=== PATIENT | female | born 1945 | race Caucasian/White ===

== ENCOUNTER 2019-10-21 13:42 | Emergency (ER) | payer MEDICARE, BC, SELFPAY ==
[2019-10-21 14:11] VITALS: BP 131/59; PULSE 64; RESP 20; TEMP 36.7; O2SAT 99; BMI 27.4
--- NOTE | 2019-10-21 14:37 | CA_ITS ---
APPROVED REPORT Right Lower Extremity Venous Study for DVT. Barrel Lapper: CHRISTI Indications Lower Extremity Pain: Right LEG PAIN Vein Imaging CFV (R): compressive, spontaneous, phasic, augmentation FEM (R): compressive, spontaneous, phasic, augmentation POP (R): compressive, spontaneous, phasic, augmentation PTV (R): Compressible, Compressible GSV (R): Compressible SSV (R): Compressible Peroneals (R):Compressible GAS (R): Compressible Findings No evidence of DVT or superficial thrombophlebitis in the veins scanned of the right lower extremity. Conclusion No evidence of DVT or superficial thrombophlebitis in the veins scanned of the right lower extremity. Electronically signed by : Srinivasan Martinez MD 10/21/2019 16:52:29
--- NOTE | 2019-10-21 14:38 | HMH.EDUTC ---
[facility] [place] Clinical Impression: Sciatic leg pain Disposition: Home, Self-Care Condition on Discharge: Good Instructions: Sciatica, DI for Sciatica Additional Instructions: Over the counter Lidocaine patches may help with pain and discomfort Over the counter muscle rubs may help with pain Follow up with Family doctor if no improvement or any worsening of symptoms Return if needed Straight to ER If any life threatening symptoms Referrals: Amilcar Guzman [Primary Care Provider] - As needed Time of Disposition: 15:33 Medical Decision Making - Deon Inquiry Pt receiving controlled substance: No Deon was queried for this patient: No Vital Signs: 10/21/19 14:11 10/21/19 15:50 Temperature 98.0 F 98.0 F Temperature Source Oral Pulse Rate 64 Pulse Rate [Right Brachial] 64 Respiratory Rate 20 20 Blood Pressure 131/59 L Blood Pressure [Right Arm] 131/59 L Blood Pressure Mean [Right Arm] 83 Blood Pressure Source [Right Arm] Automatic Cuff Blood Pressure Position [Right Arm] Sitting 02 Sat by Pulse Oximetry 99 Oxygen Delivery Method Room Air Orders (Tests/Meds): ED MEDICATIONS Discontinued Medications Generic Name Dose Route Start Last Admin Trade Name Fredi PRN Reason Stop Dose Admin Methylprednisolone Sodium Succinate 125 mg 10/21/19 15:22 10/21/19 15:42 Solu-Medrol 125mg/2ml Vial IM 10/21/19 15:23 Not Given ONCE ONE - US Data US Images: Lower Extremity Preliminary Findings: Normal/NAD Findings Narrative: Discussed with tech, no DVT Medical Decision Narrative: Discussed sciatica and recommended injection of solu medrol and patient refused States she did not want to take it and she would follow up with her family doctor tomorrow and see if he wanted her to take a steriod shot and then she would that today she was more worried about a blood clot so she came in. [facility] [place] - General Stated complaint: rt leg pain Time Seen by Provider: 10/21/19 14:38 Mode of Arrival: Ambulatory Source of Information: Patient Limitations: No Limitations Description of Symptoms (Recalled from Triage Doc. by RN): PATIENT C/O RIGHT LEG PAIN FROM HIP TO ANKLE X 2 WEEKS. NO KNOWN INJURY HEENT Symptoms (Recalled from RN notes): No Resp Symptoms (Recalled from RN notes): No Skin Symptoms (Recalled from RN notes): No MS Symptoms (Recalled from RN notes): Yes Functional Status (Recalled from RN notes): WNL - History of Present Illness Provider Complaint: Patient states that she has been having pain in her right hip area that radiates down her right leg with pain worse in her lower leg/calf area States that she has also been having some busted blood veins in her leg State that pain is worse when she tries to walk and denies any injury - Related Data Home Medications Medication Instructions Recorded Confirmed Aspirin [Aspir-Low] 81 mg PO DAILY 04/16/18 10/21/19 Clopidogrel Bisulfate [Plavix 75mg 75 mg PO DAILY 04/16/18 10/21/19 Tab] Hydralazine HCl [Hydralazine HCl 12.5 mg PO BID 04/16/18 10/21/19 25mg Tablet] Metoprolol Tartrate 50 mg PO DAILY 04/16/18 10/21/19 Moexipril HCl 15 mg PO BID 04/16/18 10/21/19 hydroCHLOROthiazide [HCTZ 12.5mg 12.5 mg PO BID 04/16/18 10/21/19 capsule] acetaminophen 300 mg-codeine 60 mg tab PO 09/30/19 10/21/19 tablet amlodipine 5 mg tablet PO 09/30/19 10/21/19 atorvastatin 80 mg tablet PO 09/30/19 10/21/19 clonidine HCl 0.1 mg tablet PO 09/30/19 10/21/19 isosorbide mononitrate 30 mg mg PO 09/30/19 10/21/19 tablet,extended release 24 hr amoxicillin 875 mg-potassium tab PO 10/21/19 10/21/19 clavulanate 125 mg tablet Previous Rx's Medication Instructions Recorded azithromycin 250 mg tablet See Rx Instructions PO .COMPLEX #6 09/24/19 tab ciprofloxacin 0.3 %-dexamethasone 3 drp OTIC BID 14 Days #7.5 ml 09/30/19 0.1 % ear drops,suspension Allergies Allergy/AdvReac Type Severity Reaction Status Date / Time morphine Ja
[2019-10-21 15:50] VITALS: BP 131/59; PULSE 64; RESP 20; TEMP 36.7; O2SAT 99
== END 2019-10-21 15:51 | disposition home or self-care (01) ==
PROVIDERS: Emergency Provider Nurse Practitioner; PCP Pediatrics
DX: M54.31 Sciatica, right side (principal); M79.604 Pain in right leg; I10 Essential (primary) hypertension; E11.9 Type 2 diabetes mellitus without complications; E78.5 Hyperlipidemia, unspecified; I25.10 Atherosclerotic heart disease of native coronary artery without angina pectoris; Z88.5 Allergy status to narcotic agent; Z79.899 Other long term (current) drug therapy
CPT/HCPCS: 93971; 99201

== ENCOUNTER 2020-01-15 17:30 | Inpatient (IN) | payer MEDICARE, BC, SELFPAY ==
[2020-01-15 17:30] VITALS: BP 115/51; PULSE 81; RESP 20; TEMP 37.3; O2SAT 90; BMI 31.8
--- NOTE | 2020-01-15 17:40 | XR_ITS ---
PROCEDURE: XR CHEST PORTABLE CLINICAL HISTORY: cough COMPARISON: CR CXR CHEST(2 VIEWS-NOT PORTABLE) from 11/08/2013 CR CXR2V XR chest 2V from 07/29/2017 CR CXR2V XR chest 2V from 04/16/2018 FINDINGS: Mild cardiomegaly failure. Mild atelectatic changes in the left lower lobe. Minimally offset left 7th rib fracture posteriorly age indeterminate. Old right 6th rib fracture. IMPRESSION: Mild left basilar atelectasis with age indeterminate left 7th rib fracture an old right 6th rib fracture Dictated by: Srinivasan Martinez MD 01/16/2020 06:05 Srinivasan Martinez MD in [place] 01/16/2020 06:05
--- NOTE | 2020-01-15 17:40 | CT_ITS ---
PROCEDURE: CT HEAD/BRAIN WO CON CLINICAL INDICATION: fall, head injury The Head injury with headache/pain, contusion, abrasion or hematoma COMPARISON: CT HDWO CT HEAD W/O CONTRAST from 11/01/2013 TECHNIQUE: Axial images obtained. All CT scans at the facility use one or more dose reduction, viz: automated exposure control, ma/kV adjustment per patient size (including targeted exams where dose is matched to indication, i.e. head), or iterative reconstruction technique. FINDINGS: No midline shift, mass effect, intracranial hemorrhage, hydrocephalus, or extra-axial fluid collection is evident. There is generalized atrophy with hypoattenuation of the periventricular white matter consistent with microangiopathic changes. There is thinning the calvarium with a defect in the calvarium in the left lateral occipital bone posterior to the mastoid sinus which is not significantly changed. Bilateral mastoid opacification is noted. No sinus air-fluid level. IMPRESSION: Overall no change with no acute intracranial findings. There is suspected chronic bilateral maxillary sinus inflammatory changes. Dictated by: Srinivasan Martinez MD 01/16/2020 06:49 Srinivasan Martinez MD in [place] 01/16/2020 06:49
--- NOTE | 2020-01-15 17:41 | CT_ITS ---
PROCEDURE: CT CERVICAL SPINE WO CON CLINICAL INDICATION: fall, neck pain Neck injury with pain, contusion/abrasion or hematoma, cervical sprain/strain the COMPARISON: No exams were available for comparison TECHNIQUE: Axial images obtained with sagittal and coronal reformats. All CT scans at the facility use one or more dose reduction, viz: automated exposure control, ma/kV adjustment per patient size (including targeted exams where dose is matched to indication, i.e. head), or iterative reconstruction technique. Axial spiral CT scanning performed of the cervical spine beginning at the base of the skull and continuing to the upper T-spine. 3-D multiplanar reconstruction with 3-D manipulation of volumetric data set in image rendering was completed by the radiologist and/or technologist with the supervision of the radiologist on independent workstation. FINDINGS: There is normal alignment. No acute fracture or dislocation is evident. There is mild multilevel cervical spondylosis. The C2-C3: Facet hypertrophy on the left. C3-C4: Degenerative disc disease with 3 mm anterolisthesis of C3. C4-C5: Degenerative disc disease with 3 mm anterolisthesis of C4 and right-sided facet and uncovertebral hypertrophy with right lateral recess and foraminal narrowing. C5-C6: Degenerative disc disease. C6-C7: Degenerate disc disease. Patchy density left upper lobe posteriorly may be due to subpleural atelectasis or infiltrate. IMPRESSION: No acute fracture. Cervical spondylosis Dictated by: Srinivasan Martinez MD 01/16/2020 06:46 Srinivasan Martinez MD in [place] 01/16/2020 06:46
--- NOTE | 2020-01-15 17:50 | PC.NURSE ---
Pt taken for CT and Xray
[2020-01-15 17:51] LABS: Microscopic, Urine URINE MICROSCOPIC (MICROSCOPIC)
[2020-01-15 17:55] LABS: Basophils % 0.3 % (0.1-2.0); Hematocrit 38.5 % (37.0-47.0); Hemoglobin 13.3 g/dL (12.2-16.2); Lymphocytes # 0.7 K/mm3 (0.7-4.5); Lymphocytes % 12.3 % (10-50); Mean Corpuscular HGB Conc 34.6 g/dL (31.8-35.4); Mean Corpuscular Volume 89.6 fl (81-99); Mean Platelet Volume 8.8 fl (7.4-10.4); Monocytes # 0.5 K/mm3 (0.1-1.0); Monocytes % 8.5 % (1.7-9.3); Neutrophils # 4.8 K/mm3 (1.8-7.8); Neutrophils % 78.9 % (37.0-80.0); Platelet Count 203 K/mm3 (142-424); Red Cell Distribution Width 13.7 % (11.5-17.5)
[2020-01-15 18:17] LABS: Appearance,Urine CLEAR (Clear); Blood, Urine Negative (Negative); Color,Urine DK YELLOW (Yellow); Glucose,Urine (UA) Negative (Negative); Ketones,Urine Negative (Negative); Leukocyte Esterase,Urine Negative (Negative); Nitrate,Urine Negative (Negative); Protein,Urine TRACE (Negative); Specific Gravity, Urine >= 1.030 (1.005-1.030); Urobilinogen,Urine 0.2 EU/dl (0.2)
--- NOTE | 2020-01-15 18:23 | HMH.EDGENADL ---
ED Disposition Clinical Impression: Dehydration Renal failure Qualifiers: Renal failure chronicity: acute Acute renal failure type: unspecified Qualified Code(s): N17.9 - Acute kidney failure, unspecified Diarrhea Qualifiers: Diarrhea type: unspecified type Qualified Code(s): R19.7 - Diarrhea, unspecified Fall Qualifiers: Encounter type: initial encounter Qualified Code(s): W19.XXXA - Unspecified fall, initial encounter Disposition: Admitted As Inpatient Condition on Discharge: Good Time of Disposition: 20:31 - Critical Care Critical Care Time: No Attestation: On 01/15/20, the high probability of a clinically significant, sudden or life threatening deterioration of the following system(s) required my full and direct attention, intervention and personal management. The time I documented below is in addition to time spent performing reported procedures but includes the following listed in this critical care notation. Medical Decision Making - Medical Records Medical records reviewed: Yes: I reviewed the patient's medical records. - Deon Inquiry Pt receiving controlled substance: No Vital Signs: 01/15/20 17:30 01/15/20 19:30 Temperature 99.1 F Temperature Source Oral Pulse Rate [Radial] 81 76 Respiratory Rate 20 16 Blood Pressure [Right Arm] 115/51 L 131/55 L Blood Pressure Mean [Right Arm] 72 80 Blood Pressure Source [Right Arm] Automatic Cuff Blood Pressure Position [Right Arm] Sitting Sitting 02 Sat by Pulse Oximetry 90 L 92 L Oxygen Delivery Method Room Air Room Air - Lab Data Lab Results 01/15/20 17:40: WBC 6.0, RBC 4.30, Hgb 13.3, Hct 38.5, MCV 89.6, MCH 31.0, MCHC 34.6, RDW 13.7, Plt Count 203, MPV 8.8, Neut % (Auto) 78.9, Lymph % (Auto) 12.3, [place] % (Auto) 8.5, Eos % (Auto) 0.0 L, Baso % (Auto) 0.3, Neut # (Auto) 4.8, Lymph # (Auto) 0.7, [place] # (Auto) 0.5, Eos # (Auto) 0.0, Baso # (Auto) 0.0 01/15/20 17:40: Urine Color Dk yellow, Urine Appearance Clear, Urine pH 5.0, Ur Specific [place] >= 1.030, Urine Protein Trace, Urine Glucose (UA) Negative, Urine Ketones Negative, Urine Blood Negative, Urine Nitrate Negative, Urine Bilirubin Negative, Urine Urobilinogen 0.2, Ur Leukocyte Esterase Negative, Urine WBC 5-10, Ur Squamous Epith Cells 10-20 01/15/20 17:40: Sodium 129 L, Potassium 4.7, Chloride 92 L, Carbon Dioxide 18 L, Anion Gap 23.7 H, BUN 70 H, Creatinine 3.50 H, Estimated Creat Clear 18, Estimated GFR 13 L*, Est GFR ( Amer) 15 L*, Glucose 104 H, Calcium 9.0, Total Bilirubin 0.6, AST 76 H, ALT 29, Alkaline Phosphatase 65, Troponin I 0.07 H, Total Protein 7.7, Albumin 4.4, Globulin 3.3 H, Albumin/Globulin Ratio 1.3, Lipase 450 H 01/15/20 17:40: SARS-CoV-2 IgG Ab (Rapid) Negative, SARS-CoV-2 IgM Ab (Rapid) Negative 01/15/20 17:40: Total Creatine Kinase 659 H* Result diagrams: 01/15/20 17:40 01/15/20 17:40 Orders (Tests/Meds): ED MEDICATIONS Generic Name Dose Route Start Last Admin Trade Name Freq PRN Reason Stop Dose Admin Sodium Chloride 1,000 mls @ 999 mls/hr 01/15/20 19:15 01/15/20 20:06 Sod Chlor 0.9% 1000ml Bag IV 01/15/20 20:15 999 mls/hr .Q1H1M NICOLE Administration Sodium Chloride 1,000 mls @ 999 mls/hr 01/15/20 20:15 01/15/20 20:07 Sod Chlor 0.9% 1000ml Bag IV 01/15/20 21:15 999 mls/hr .Q1H1M NICOLE Administration ORDERS Category Date Time Status CT cervical spine wo con Stat Cat Scan 01/15/20 17:[address] head/brain wo con Stat Cat Scan 01/15/20 17:40 Taken CXR --portable [XR chest portable] Stat Exams 01/15/20 17:40 Taken Troponin I Q3H Lab 01/15/20 20:45 Ordered Troponin I Q3H Lab 01/15/20 23:45 Ordered EKG Request [ECG Request by /Tiffany] Stat Y 01/15/20 17:42 Ordered Medical Decision Narrative: In summary this is a previously healthy 74-year-old female presenting to the emergency department with headache and neck pain after a fall. Says she feels generally unwell, malaise. Trauma concerns include intracranial bleed, con
[2020-01-15 18:26] LABS: Bilirubin,Urine Negative (Negative)
--- NOTE | 2020-01-15 19:00 | ECG_ITS ---
APPROVED REPORT Exam: Resting ECG HR:75 bpm ECG Measurements Heart Rate 75 AXES QRSd 74 QRS -16 QT 398 T 8 QTc 444 Conclusion NSR LVH Poor r wave progression Abnormal ECG Electronically signed by : Fito Baugh, 01/20/2020 07:37:47
[2020-01-15 19:02] LABS: Coronavirus 19 IgG Antibody Negative (Negative); Coronavirus 19 IgM Antibody Negative (Negative)
--- NOTE | 2020-01-15 19:14 | PC.NURSE ---
call placed to lab to check on chemistry lab. spoke with luigi and was told it would be 15 mins
[2020-01-15 19:19] LABS: Chloride 92 mmol/L (98-107); Potassium 4.7 mmoL/L (3.5-5.1); Sodium 129 mmol/L (136-145)
[2020-01-15 19:21] LABS: Blood Urea Nitrogen 70 mg/dl (7-17); Creatinine Clearance Estimated 18 mL/min (50-200)
[2020-01-15 19:22] LABS: Alanine Aminotransferase 29 U/L (12-78); Albumin Level 4.4 g/dl (3.5-5.0); Albumin/Globulin Ratio 1.3 (1.1-1.8); Alkaline Phosphatase 65 U/L (38-126); Anion Gap 23.7 mEq/L (5-15); Aspartate Amino Transferase 76 U/L (14-36); Bilirubin,Total 0.6 mg/dl (0.2-1.3); Carbon Dioxide 18 mmol/L (22.0-30.0); Estimated Glomerular Filt Rate 13 ml/min (>60); GFR (African American) 15 ML/MIN (>60); Globulin 3.3 g/dL (1.3-3.2); Glucose 104 mg/dl (74-100); Lipase 450 U/L (23-300); Total Protein,Serum 7.7 g/dl (6.3-8.2)
[2020-01-15 19:30] VITALS: BP 131/55; PULSE 76; RESP 16; O2SAT 92
[2020-01-15 19:34] LABS: Troponin I 0.07 ng/ml (0.00-0.034)
--- NOTE | 2020-01-15 19:53 | PC.NURSE ---
paged dr larson
[2020-01-15 20:00] VITALS: BP 136/52; PULSE 76; RESP 15; O2SAT 91
--- NOTE | 2020-01-15 20:03 | PC.NURSE ---
on phone with dr yang re: mri results
--- NOTE | 2020-01-15 20:05 | PC.NURSE ---
called house, spoke with lyssa, informed of need for bed assignment.
[2020-01-15 20:06] LABS: Creatine Kinase 659 U/L (30-135)
--- NOTE | 2020-01-15 20:07 | PC.NURSE ---
Patient to be admitted to 203
--- NOTE | 2020-01-15 20:07 | PC.NURSE ---
received recall from dr larson. noted he will call back as md in on the phone.
--- NOTE | 2020-01-15 20:17 | PC.NURSE ---
spoke with Dr. Baugh. pt admitted
[2020-01-15 20:48] VITALS: BP 108/51; PULSE 83; RESP 16; TEMP 37.2; O2SAT 91
--- NOTE | 2020-01-15 21:18 | PC.NURSE ---
PT ARRIVED TO THE FLOOR VIA W/C FROM ED W/STAFF @0840
[2020-01-15 21:20] VITALS: BMI 32.8
[2020-01-15 21:56] LABS: Troponin I 0.06 ng/ml (0.00-0.034)
[2020-01-15 22:02] VITALS: PULSE 90
[2020-01-15 23:19] LABS: POC Glucose,Bedside 91 (70-110)
[2020-01-15 23:51] LABS: Troponin I 0.06 ng/ml (0.00-0.034)
[2020-01-16] VITALS (8 sets, daily range): BP systolic 118–165; BP diastolic 43–78; PULSE 60–86; RESP 15–24; TEMP 36.7–39.1; O2SAT 87–95; BMI 32.8
--- NOTE | 2020-01-16 00:49 | PC.NURSE ---
Family doesn't know where home medication of pt is at. Family states that they don't know how to get it. Family asks to confirm with pharmacy at [facility] and [facility].
--- NOTE | 2020-01-16 01:04 | PC.NURSE ---
Pt states she fell and was on floor for 3 hrs. She c/o neck pain and has some difficulty during ambulation due to pain. She is scared to fall again. She is alert to self and time, but doesn't know where she's at. Pt's last BM was 01/14. Pt states it was diarrhea. She voided in BR with 800 urine output. Urine was dark yellow. Lungs are diminished. She is currently on RA. VSS. Call light within reach. Medication administered per mar. Will continue to monitor.
--- NOTE | 2020-01-16 04:23 | PC.NURSE ---
Pt was noted to desat while sleeping. O2 was 87% RA. O2 2L NC was applied. Pt sat is currently 92% .
[2020-01-16 06:13] LABS: POC Glucose,Bedside 75 (70-110)
[2020-01-16 07:29] LABS: Lactic Acid 0.9 mmol/L (0.7-2.1)
[2020-01-16 07:30] LABS: Basophils % 0.7 % (0.1-2.0); Hematocrit 35.8 % (37.0-47.0); Hemoglobin 12.2 g/dL (12.2-16.2); Mean Corpuscular HGB Conc 34.1 g/dL (31.8-35.4); Mean Corpuscular Hemoglobin 30.9 pg (27.0-31.2); Mean Corpuscular Volume 90.7 fl (81-99); Mean Platelet Volume 9.2 fl (7.4-10.4); Monocytes # 0.3 K/mm3 (0.1-1.0); Monocytes % 8.7 % (1.7-9.3); Neutrophils # 2.5 K/mm3 (1.8-7.8); Neutrophils % 64.6 % (37.0-80.0); Platelet Count 165 K/mm3 (142-424); Red Blood Count 3.95 M/mm3 (4.20-5.40); Red Cell Distribution Width 13.7 % (11.5-17.5); White Blood Count 3.9 K/mm3 (4.8-10.8)
[2020-01-16 07:33] LABS: Chloride 101 mmol/L (98-107); Potassium 4.3 mmoL/L (3.5-5.1); Sodium 133 mmol/L (136-145)
[2020-01-16 07:35] LABS: Blood Urea Nitrogen 57 mg/dl (7-17); Creatine Kinase 1441 U/L (30-135); Creatinine Clearance Estimated 40 mL/min (50-200); Estimated Glomerular Filt Rate 31 ml/min (>60); GFR (African American) 38 ML/MIN (>60)
[2020-01-16 07:36] LABS: Anion Gap 15.3 mEq/L (5-15); Calcium 8.3 mg/dl (8.4-10.2); Carbon Dioxide 21 mmol/L (22.0-30.0); Glucose 68 mg/dl (74-100); Magnesium 1.8 mg/dl (1.6-2.3); Phosphorous 3.8 mg/dl (2.5-4.5)
--- NOTE | 2020-01-16 08:16 | HMH.HP ---
*Admission Date: 01/15/20 *Chief complaint: fall *History of present illness: 74-year-old female who presented from home after falling and sustaining head injury. States that after her fall she remained on the floor for several hours before being able to get herself up and seek medical care. Her fall was secondary to slipping on wet floor where she sustained head injury when she hit the floor in the wall. Denies loss of consciousness but complains of significant neck pain. Work-up in the ER with imaging showed no acute fractures or intracranial abnormalities. She did however have significantly elevated creatinine greater than 3 (baseline normal less than 1). Also noted to have elevated CK. Patient was admitted for further management of rhabdomyolysis and acute kidney failure. On assessment this morning tolerating p.o. intake, remained hemodynamically stable overnight. Continues to complain of significant pain, mainly on the right side. Daughter at bedside with her this morning. Otherwise denies shortness of breath, chest pain, nausea, vomiting. Ambulating independently to the bathroom. Alert and oriented. Is hard of hearing however Of note, lives independently [facility] History I have reviewed the patient's past medical history: Yes Medical History: Reports:: Coronary Artery Disease, Diabetes Mellitus Type 2, Hyperlipidemia, Hypertension Denies:: Diabetes Mellitus Type 1 *Have you ever received a pneumonia vaccine?: No *Have you received a flu vaccine this season?: Yes Other Surgeries: Yes: Other Amputation: No Fractures: No - *Social History Smoking Status: Former smoker Tobacco Type: cigarettes Alcohol Intake: never Substance Use Type: denies use *Occupational Status:: retired *Travel in the last 8 weeks: None Family Hx:: Cancer, Coronary Artery Disease, Diabetes, Hyperlipidemia, Hypertension, Kidney Disease, Stroke Review of Systems - Review of Systems Review of systems:: pertinent systems reviewed and negative unless documented below (14 point review of systems performed, pertinent positives and negatives as per HPI) - *Neurologic Reports headache(s), Denies abnormal walking, Denies abnormal speech, Denies numbness, Denies tingling, Denies dizziness Meds Home Medications Medication Instructions Recorded Confirmed Type Aspirin [Aspir-Low] 81 mg PO DAILY 04/16/18 01/16/20 History Clopidogrel Bisulfate [Plavix 75mg 75 mg PO DAILY 04/16/18 01/16/20 History Tab] Metoprolol Tartrate 75 mg PO BID 04/16/18 01/16/20 History Moexipril HCl 15 mg PO BID 04/16/18 01/16/20 History acetaminophen 300 mg-codeine 60 mg 1 tab PO NEEDED PRN 09/30/19 01/16/20 History tablet amlodipine 5 mg tablet 5 mg PO DAILY 09/30/19 01/16/20 History atorvastatin 80 mg tablet 80 mg PO HS 09/30/19 01/16/20 History clonidine HCl 0.1 mg tablet 0.1 mg PO BID 09/30/19 01/16/20 History isosorbide mononitrate 30 mg 30 mg PO TID 09/30/19 01/16/20 History tablet,extended release 24 hr Levothyroxine Sodium 25 mcg PO DAILY 01/15/20 01/16/20 History [Levothyroxine 25mcg (0.025mg) Tab] Allergies Allergy/AdvReac Type Severity Reaction Status Date / Time morphine Allergy Intermediate Verified 10/21/19 13:34 phenobarbital Allergy Intermediate Verified 10/21/19 13:34 Exam Vital signs and Labs for Last 24 Hours: Temp Pulse Resp BP Pulse Ox 98.2 F 73 18 118/43 L 92 L 01/16/20 04:00 01/16/20 04:00 01/16/20 04:00 01/16/20 04:00 01/16/20 04:15 Laboratory Results - last 24 hr 01/15/20 17:40: WBC 6.0, RBC 4.30, Hgb 13.3, Hct 38.5, MCV 89.6, MCH 31.0, MCHC 34.6, RDW 13.7, Plt Count 203, MPV 8.8, Neut % (Auto) 78.9, Lymph % (Auto) 12.3, [place] % (Auto) 8.5, Eos % (Auto) 0.0 L, Baso % (Auto) 0.3, Neut # (Auto) 4.8, Lymph # (Auto) 0.7, [place] # (Auto) 0.5, Eos # (Auto) 0.0, Baso # (Auto) 0.0 01/15/20 17:40: Urine Color Dk yellow, Urine Appearance Clear, Urine pH 5.0, Ur Specific [place] >= 1.030, Urine Protein Trace, Urine Glucos
--- NOTE | 2020-01-16 08:59 | HMH.PHAVTE ---
[facility] Pharmacy VTE Monitoring - Patient Demographics Admission date: 01/16/20 Report Date: 01/16/20 Time: 08:59 Allergies/Adverse Reactions: Patient Allergies morphine Allergy (Intermediate, Verified 10/21/19 13:34) phenobarbital Allergy (Intermediate, Verified 10/21/19 13:34) Height: 1.6 m Weight: 84.11 kg Patient Problems: Current Active Problems Renal failure (Acute) Dehydration (Acute) Diarrhea (Acute) Fall (Acute) Neck pain (Acute) Rhabdomyolysis (Acute) Acute kidney injury (Acute) Hypothyroidism (acquired) (Chronic) Hypertension (Chronic) - VTE Risk Labs: VTE Related Lab Results Hgb 12.2 g/dL (12.2-16.2) 01/16/20 06:58 Hct 35.8 % (37.0-47.0) L 01/16/20 06:58 Plt Count 165 K/mm3 (142-424) 01/16/20 06:58 BUN 57 mg/dl (7-17) H 01/16/20 06:58 Creatinine 1.60 mg/dl (0.52-1.04) H D 01/16/20 06:58 Estimated Creat Clear 40 mL/min (50-200) 01/16/20 06:58 Was VTE Risk Assessment Performed: Yes VTE Risk Level: Low Risk Clinical Trial Participant: No - Prophylaxis VTE Prophylaxis Ordered?: Yes Types of VTE Prophylaxis: TEDS Knee High Location of Applied Device: Bilateral Lower Extremeties
--- NOTE | 2020-01-16 18:06 | PC.NURSE ---
PATIENT A&O X4, INSPIRATORY AND EXPIRATORY WHEEZING HEARD, PULSES EQUAL. NON PITTING EDEMA NOTED ON BLE, TEDS REFUSED AT THIS TIME. PATIENT HAS SLEPT FOR MOST OF THIS RN SHIFT. PATIENT WAS WOKE UP DURING MEALS AND THIS RN ENCOURAGED PATIENT TO EAT. PATIENT REFUSED LUNCH, ATE 50% OF DINNER. PATIENT'S DAUGHTER AT BEDSIDE WITH THANKSGIVING DINNER. PATIENT'S DAUGHTER STATED SHE WILL ENCOURAGE HER TO EAT MORE. PATIENT HAD ONE EPISODE OF LOOSE BOWEL. NO OTHER CONCERNS AT THIS TIME.
[2020-01-17] VITALS (8 sets, daily range): BP systolic 138–158; BP diastolic 47–77; PULSE 70–93; RESP 14–22; TEMP 36.7–36.8; O2SAT 90–94; BMI 33.6; BMI 33.5
--- NOTE | 2020-01-17 05:02 | PC.NURSE ---
Addendum entered by Janet Villa RN 01/17/20 07:01: Pt and pt daughter refused AM Synthroid dose. Pt stated I don't take this medicine Original Note: Pt is A&Ox4. Pt rested intermittently this shift. Pt has had x2 loose stools this shift, per family stool is loose and brown. Lung sounds are diminished t/o per auscultation. Pt did require 2L NC this shift due to O2 sats being <90%. With 2L NC, O2 sats stayed between 90-95%. Pt was able to ambulate to BSC t/o this shift with x1 assist. Pt is urinating clear, dark yellow urine. Pt was febrile x1 this shift (102.3). PRN Tylenol administered per MAR, extra blankets were taken off of pt and cool rag to pt's axilla. Upon reassessment, pt temp was 98.2. Pt did remove IV this shift. New 20g PIV placed in LAC. Daughter and pt both spoke to this nurse mentioning that they would like to have a BSC and walker for pt at her home. This nurse will pass this information on to daysmeft nurse. Call light remains in reach. No other acute changes or complaints at this time. Will continue to monitor.
[2020-01-17 07:10] LABS: Basophils % 0.4 % (0.1-2.0); Eosinophils % 0.1 % (0.1-12.0); Hematocrit 42.2 % (37.0-47.0); Lymphocytes % 22.1 % (10-50); Mean Corpuscular HGB Conc 33.2 g/dL (31.8-35.4); Mean Corpuscular Hemoglobin 30.5 pg (27.0-31.2); Mean Corpuscular Volume 92.1 fl (81-99); Mean Platelet Volume 8.6 fl (7.4-10.4); Monocytes # 0.4 K/mm3 (0.1-1.0); Monocytes % 8.7 % (1.7-9.3); Neutrophils # 3.2 K/mm3 (1.8-7.8); Neutrophils % 68.7 % (37.0-80.0); Platelet Count 198 K/mm3 (142-424); Red Blood Count 4.58 M/mm3 (4.20-5.40); Red Cell Distribution Width 13.8 % (11.5-17.5); White Blood Count 4.7 K/mm3 (4.8-10.8)
[2020-01-17 07:17] LABS: Chloride 104 mmol/L (98-107)
[2020-01-17 07:18] LABS: Potassium 3.6 mmoL/L (3.5-5.1); Sodium 138 mmol/L (136-145)
[2020-01-17 07:20] LABS: Blood Urea Nitrogen 23 mg/dl (7-17); Creatinine Clearance Estimated 65 mL/min (50-200); Estimated Glomerular Filt Rate 81 ml/min (>60); GFR (African American) 98 ML/MIN (>60)
[2020-01-17 07:21] LABS: Anion Gap 13.6 mEq/L (5-15); Calcium 8.9 mg/dl (8.4-10.2); Carbon Dioxide 24 mmol/L (22.0-30.0); Creatine Kinase 820 U/L (30-135); Glucose 88 mg/dl (74-100)
--- NOTE | 2020-01-17 08:30 | PC.NURSE ---
DAUGHTER ADDRESSED CONCERNS THIS MORNING ABOUT HER MOTHER NEEDING A BEDSIDE COMMODE UPON DISCHARGE. PT WILL NEED A ROLLING WALKER RATHER THAN A CANE DUE TO GAIT AND MOBILITY ISSUES. PT WILL ALSO NEED A BEDSIDE COMMODE DUE TO DISTANCE TO BATHROOM IN PATIENT'S HOME. CASE MANAGEMENT AWARE.
--- NOTE | 2020-01-17 08:37 | XR_ITS ---
PROCEDURE: XR LUMBAR SPINE 2-3V CLINICAL INDICATION: fall COMPARISON: CT ABDPELWO CT abdomen pelvis wo con from 07/29/2017 FINDINGS: There is normal curvature and alignment. All lumbar vertebrae appear intact. There is prominent anterior osteophytic spurring at the T11-12 and T12-L1 levels. There is disc space narrowing at the L4-5 and L5-S1 levels. There are mild hypertrophic facet changes at L4-5 and L5-S1 levels. The SI joints are normal. There is a prominent tubular calcification or ossification left buttock projecting over the left iliac bone possibly representing a large injection granuloma slight versus myositis ossifications from previous injury. IMPRESSION: Moderate multilevel degenerate changes thoracolumbar junction along with mild degenerate disc disease L4-5 and L5-S1 Dictated by: Dr. Ruslan Collado MD 01/17/2020 10:15 Dr. Ruslan Collado MD in [place] 01/17/2020 10:15
--- NOTE | 2020-01-17 08:41 | XR_ITS ---
PROCEDURE: XR CHEST 2V CLINICAL HISTORY: fall COMPARISON: CR CXR2V XR chest 2V from 07/29/2017 CR CXR2V XR chest 2V from 04/16/2018 CR XR CHEST PORTABLE from 01/15/2020 FINDINGS: There is mild generalized cardiomegaly. There is mild vascular congestion with slight prominence of the upper lobe vessels. There are patchy ill-defined opacities in both perihilar regions and lower lobes worrisome for developing pneumonic infiltrates. The upper lung ga are clear. There may be a small right pleural effusion. There are mild degenerate changes mid lower thoracic spine. IMPRESSION: 1. Generalized cardiomegaly with findings suggesting congestive failure 1. Minimal patchy infiltrates both lower lobes though some of the opacities could be due to atelectasis Dictated by: Dr. Ruslan Collado MD 01/17/2020 10:10 Dr. Ruslan Collado MD in [place] 01/17/2020 10:10
--- NOTE | 2020-01-17 09:00 | PC.NURSE ---
DURING MORNING ROUNDS THIS MORNING, DR HERNANDEZ ASKED TO DC FLUIDS, OBTAIN URINE AND STOOL SAMPLE, AND ORDER XRAYS ON THE PT DUE TO BACK PAIN FROM A FALL. XRAYS WERE ORDERED. FLUIDS WERE DC'D AND SPECIMENS WERE COLLECTED AND SENT TO LAB.
[2020-01-17 09:51] LABS: Microscopic,Cath URINE MICROSCOPIC (MICROSCOPIC)
[2020-01-17 09:53] LABS: Appearance,Urine/Cath CLEAR (Clear); Bilirubin,Cath Negative (Negative); Blood, Urine/Cath 1+ (Negative); Color,Urine/Cath YELLOW (Yellow); Glucose,Urine/Cath (UA) Negative (Negative); Ketones,Urine/Cath 1+ (Negative); Leukocyte Esterase,Cath Negative (Negative); Nitrate,Cath Negative (Negative); PH,Urine/Cath 5.5 (5.0-8.5); Protein,Urine/Cath Negative (Negative); Urobilinogen,Cath 0.2 EU/dl (0.2)
[2020-01-17 09:55] LABS: Adenovirus F 40/41, stool Not Detected (NotDetected); Astrovirus Not Detected (NotDetected); Campylobacter Not Detected (NotDetected); Clostridium Difficile A/B, PCR Not Detected (NotDetected); Cryptosporidium Not Detected (NotDetected); Cyclospora Cayetanesis Not Detected (NotDetected); Entamoeba histolytica Not Detected (NotDetected); Enteroaggregative E coli Not Detected (NotDetected); Enteropathogenic E coli Not Detected (NotDetected); Enterotoxigenic E coli Not Detected (NotDetected); Giardia lamblia Not Detected (NotDetected); Norovirus Not Detected (NotDetected); Plesimonas Shigalloides, PCR Not Detected (NotDetected); Rotavirus A Not Detected (NotDetected); Salmonella, PCR Not Detected (NotDetected); Sapovirus Not Detected (NotDetected); Shiga-like toxin E coli Not Detected (NotDetected); Shigella Enterovasive E coli Not Detected (NotDetected); Vibrio Cholerae Not Detected (NotDetected); Vibrio, PCR Not Detected (NotDetected); Yersinia Entercolitica, PCR Not Detected (NotDetected)
--- NOTE | 2020-01-17 10:03 | HMH.ACPN2 ---
Internal Medicine - PN: Subj *Date: 01/17/20 *Time: 09:00 Interval history: Patient developed fever overnight. Resolved with single dose of Tylenol. Unclear etiology at this time. Has had intermittent oxygen use overnight however is in no respiratory distress. Satting low 90s without oxygen this morning. Has shown a tendency to desat overnight while sleeping. Denies any chest pain, palpitations. Does complain of having significant diarrhea however. Was nauseous this morning after exam. Complaining of back pain in both upper and lower back. Daughter at bedside on rounds. Exam Vital signs and Labs for Last 24 Hours: Temp Pulse Resp BP Pulse Ox 98.1 F 78 17 157/75 H 94 L 01/17/20 08:00 01/17/20 08:00 01/17/20 08:00 01/17/20 08:00 01/17/20 08:00 Laboratory Results - last 24 hr 01/17/20 06:48: WBC 4.7 L, RBC 4.58, Hgb 14.0 D, Hct 42.2, MCV 92.1, MCH 30.5, MCHC 33.2, RDW 13.8, Plt Count 198, MPV 8.6, Neut % (Auto) 68.7, Lymph % (Auto) 22.1, [place] % (Auto) 8.7, Eos % (Auto) 0.1, Baso % (Auto) 0.4, Neut # (Auto) 3.2, Lymph # (Auto) 1.0, [place] # (Auto) 0.4, Eos # (Auto) 0.0, Baso # (Auto) 0.0 01/17/20 06:48: Sodium 138, Potassium 3.6, Chloride 104, Carbon Dioxide 24, Anion Gap 13.6, BUN 23 H D, Creatinine 0.70 D, Estimated Creat Clear 65, Estimated GFR 81, Est GFR ( Amer) 98 D, Glucose 88 D, Calcium 8.9, Total Creatine Kinase 820 H* D 01/17/20 09:10: Urine Color Yellow, Urine Appearance Clear, Urine pH 5.5, Ur Specific [place] 1.010, Urine Protein Negative, Urine Glucose (UA) Negative, Urine Ketones 1+, Urine Blood 1+, Urine Nitrate Negative, Urine Bilirubin Negative, Urine Urobilinogen 0.2, Ur Leukocyte Esterase Negative, Urine RBC 3-5, Urine WBC 3-5, Ur Squamous Epith Cells 3-5 I & O for Last 24 hours: Intake & Output 01/14/20 01/15/20 01/16/20 01/17/20 23:59 23:59 23:59 23:59 Intake Total 2071 649 / 649 Output Total 2049 2600 / 2600 Balance -1950 / Weight 84.113 kg 84.11 kg 86.183 kg Narrative: - Constitutional no acute distress, obese - *Routine HEENT Exam Head: Present: normocephalic Eye: Present: EOMI, PERRL ENT: Present: mucous membranes moist Comments: Remains tender to palpation right posterior neck and lumbar region on back. no appreciable bruising or swelling - *Routine Neck Exam Present: supple. Absent: lymphadenopathy - *Routine Respiratory Exam Present: CTA bilaterally - *Routine Cardiovascular Exam Present: RRR, murmur (Systolic, grade 3/6) - *Routine Abdominal Exam Present: soft, normoactive bowel sounds. Absent: tenderness - *Routine Extremities Exam Absent: cyanosis, clubbing, edema - *Routine Skin Exam Present: warm. Absent: rash - *Routine Neurological Exam Present: alert, oriented X3 Assessment and Plan (1) Neck pain Status: Acute Category: Medical Code(s): M54.2 - Cervicalgia (2) Rhabdomyolysis Status: Acute Category: Medical Code(s): M62.82 - Rhabdomyolysis Resolving. (3) Acute kidney injury Status: Acute Category: Medical Code(s): N17.9 - Acute kidney failure, unspecified Resolved today. Repeat labs in the morning. Stopping IV fluids. (4) Dehydration Status: Acute Category: Medical Code(s): E86.0 - Dehydration (5) Fall Status: Acute Qualifiers: Encounter type: initial encounter Qualified Code(s): W19.XXXA - Unspecified fall, initial encounter Category: Medical Code(s): W19.XXXA - Unspecified fall, initial encounter (6) Hypothyroidism (acquired) Status: Chronic Category: Medical Code(s): E03.9 - Hypothyroidism, unspecified (7) Hypertension Status: Chronic Qualifiers: Hypertension type: essential hypertension Qualified Code(s): I10 - Essential (primary) hypertension Category: Medical Code(s): I10 - Essential (primary) hypertension (8) Opiate withdrawal Status: Acute Category: Medical Code(s): F11.23 - Opioid dependence
--- NOTE | 2020-01-17 11:45 | SW/DCPLANNER ---
Addendum entered by Christina Emanuel 01/17/20 13:00: Emi with [facility] stated that DME will be delivered to patients room today. CM will follow up with family regarding home health services on Monday. Addendum entered by Christina Emanuel 01/17/20 11:50: Patient information and order for BSC and rolling walker have been faxed to [facility]. Family has asked if DME can be delivered to patients room today. Original Note: I have spoke with this patient regarding discharge plans. Patient resides at home with daughter. Patient has requested a bedside commode and a rolling walker at time of discharge. Patient is NOT interested in placement at this time. I have spoke with patient and daughter (Ruth Ann [phone]) regarding home health services per MD. Patient and daughter would like to discuss this and for CM to follow up with Ruth Ann via phone on Monday morning. Patient is unsure regarding home health services.
--- NOTE | 2020-01-17 14:15 | PC.NURSE ---
A&OX4. PT HAS TOLERATED ROOM AIR WELL THROUGHOUT SHIFT. RESPIRATIONS REGULAR AND UNLABORED. LUNG SOUNDS BILATERALLY CLEAR. OCCASIONAL NONPRODUCTIVE COUGH NOTED. HAND DOWEL SANDER OPERATOR EQUAL. +2 PULSES NOTED. ACTIVE BOWEL SOUNDS HEARD IN ALL 4 QUADRANTS. SOFT AND NONTENDER ABDOMEN. PT HAS HAD SEVERAL LOOSE BMS THIS SHIFT. PT VOIDS PER BSC WITH CLEAR YELLOW URINE NOTED. NO EDEMA NOTED. PT HAS REPORTED NAUSEA ONCE AND PAIN ONCE. SHE RECEIVED ZOFRAN AND NORCO ONCE. ON REASSESSMENT, SHE STATED NAUSEA HAD EASED AND PAIN WAS TOLERABLE. PT GOT UP TO THE CHAIR FOR ABOUT A HOUR TODAY AND TOLERATED WELL. DAUGHTER WAS AT THE BEDSIDE MOST OF THE DAY, BUT RECENTLY WENT HOME TO GET REST AND WILL BE BACK TOMORROW. PT HAS REMAINED AFEBRILE THUS FAR. PT IS CURRENTLY LYING IN BED RESTING. CALL LIGHT WITHIN REACH. BED IN LOWEST POSITION. VSS. WILL CONTINUE TO MONITOR.
[2020-01-18] VITALS: BP 140/48; PULSE 60; PULSE 72; RESP 14; TEMP 37.2; O2SAT 91
--- NOTE | 2020-01-18 02:37 | PC.NURSE ---
Pt is alert and oriented x4. Pt has rested well with eyes closed majority of this shift. C/o generalized pain at beginning of shift. Administered Morrice x1 thus far this shift. Upon reassessment pt noted resting in bed with eyes closed with no further complaints. Tolerated RA well with O2 noted > 90%. Bilateral lungs noted clear t/o upon auscultation. No N/V/D noted this shift thus far. No edema noted. Refused teds. NSR noted on satellite project site monitor. VSS. Remains safe. Call light within reach. Will continue to monitor.
[2020-01-18 04:00] VITALS: BP 155/59; PULSE 80; PULSE 84; RESP 16; TEMP 36.8; O2SAT 90
[2020-01-18 05:14] VITALS: BMI 32.5
[2020-01-18 07:16] LABS: Basophils % 0.3 % (0.1-2.0); Eosinophils % 0.1 % (0.1-12.0); Hematocrit 38.6 % (37.0-47.0); Hemoglobin 12.9 g/dL (12.2-16.2); Lymphocytes # 1.2 K/mm3 (0.7-4.5); Lymphocytes % 22.6 % (10-50); Mean Corpuscular HGB Conc 33.5 g/dL (31.8-35.4); Mean Corpuscular Hemoglobin 30.5 pg (27.0-31.2); Mean Corpuscular Volume 91.2 fl (81-99); Mean Platelet Volume 8.6 fl (7.4-10.4); Monocytes # 0.4 K/mm3 (0.1-1.0); Monocytes % 7.9 % (1.7-9.3); Neutrophils # 3.5 K/mm3 (1.8-7.8); Neutrophils % 69.1 % (37.0-80.0); Platelet Count 227 K/mm3 (142-424); Red Blood Count 4.24 M/mm3 (4.20-5.40); Red Cell Distribution Width 13.8 % (11.5-17.5); White Blood Count 5.1 K/mm3 (4.8-10.8)
[2020-01-18 07:18] LABS: Chloride 102 mmol/L (98-107); Potassium 3.4 mmoL/L (3.5-5.1); Sodium 137 mmol/L (136-145)
[2020-01-18 07:21] LABS: Anion Gap 10.4 mEq/L (5-15); Blood Urea Nitrogen 12 mg/dl (7-17); Carbon Dioxide 28 mmol/L (22.0-30.0); Creatinine Clearance Estimated 63 mL/min (50-200); Estimated Glomerular Filt Rate 97 ml/min (>60); GFR (African American) 118 ML/MIN (>60)
[2020-01-18 07:22] LABS: Calcium 8.7 mg/dl (8.4-10.2); Glucose 103 mg/dl (74-100); Magnesium 1.4 mg/dl (1.6-2.3)
--- NOTE | 2020-01-18 07:50 | HMH.DCSUM ---
General - General Admission date:: 01/15/20 Discharge date: 01/18/20 HPI HPI: 74-year-old female who presented from home after falling and sustaining head injury. States that after her fall she remained on the floor for several hours before being able to get herself up and seek medical care. Her fall was secondary to slipping on wet floor where she sustained head injury when she hit the floor in the wall. Denies loss of consciousness but complains of significant neck pain. Work-up in the ER with imaging showed no acute fractures or intracranial abnormalities. She did however have significantly elevated creatinine greater than 3 (baseline normal less than 1). Also noted to have elevated CK. Patient was admitted for further management of rhabdomyolysis and acute kidney failure. On assessment this morning tolerating p.o. intake, remained hemodynamically stable overnight. Continues to complain of significant pain, mainly on the right side. Daughter at bedside with her this morning. Otherwise denies shortness of breath, chest pain, nausea, vomiting. Ambulating independently to the bathroom. Alert and oriented. Is hard of hearing however Of note, lives independently Hospital Course Hospital Course: 74-year-old female admitted after a fall at home for kidney injury and rhabdomyolysis. Responded well to fluid rehydration. Imaging of neck and back showed no acute fractures. Treated pain initially with lidocaine patch. Patient however developed worsening diarrhea and nausea along with chills during her hospitalization. Review of home medication showed that she was taking Tylenol #4 four times a day. Stool sample obtained that unfortunately is a send out lab, will follow up on results. She was initiated on hydrocodone 10 mg 4 times daily with improvement in her symptoms. Confirming she was having opiate withdrawal symptoms. Overall doing better on day of discharge. Diarrhea had more or less resolved. Tolerating breakfast. In no acute distress. Extensive discussion about need to address her pain medication regimen, morphine equivalent dosage, and reason for medication with her primary care doctor. May benefit from exploring alternative modalities for her chronic pain. Denies chest pain, shortness of breath, nausea on day of discharge. Back pain stable with current pain regimen and lidocaine patches. Reviewed labs this morning, minor electrolyte disturbances that were corrected on day of discharge including hypomagnesemia. Kidney function at baseline (normal). Medically stable for discharge home. Case management involved in her care, assisted with getting equipment/DME for home including potty chair, walker, shower chair. Objective Vital signs: Temp Pulse Resp BP Pulse Ox 98.3 F 84 16 155/59 H 90 L 01/18/20 04:00 01/18/20 04:00 01/18/20 04:00 01/18/20 04:00 01/18/20 04:00 Narrative: - Constitutional No acute distress, obese - *Routine HEENT Exam Head: Present: normocephalic Eye: Present: EOMI, PERRL ENT: Present: mucous membranes moist Comments: Remains tender to palpation right posterior neck and lumbar region on back. no appreciable bruising or swelling - *Routine Neck Exam Present: supple. Absent: lymphadenopathy - *Routine Respiratory Exam Present: CTA bilaterally - *Routine Cardiovascular Exam Present: RRR, murmur (Systolic, grade 3/6) - *Routine Abdominal Exam Present: soft, normoactive bowel sounds. Absent: tenderness - *Routine Extremities Exam Absent: cyanosis, clubbing, edema - *Routine Skin Exam Present: warm. Absent: rash - *Routine Neurological Exam Present: alert, oriented X3 Results Labs on day of discharge: Labs from last 24 hours 01/18/20 01/18/20 01/17/20 07:00 07:00 09:10 WBC 5.1 RBC 4.24 Hgb 12.9 Hct 38.6 MCV 91.2 MCH 30.5 MCHC 33.5 RDW 13.8 Plt Count 227 MPV 8.6 Neut % (Auto) 69.1 Lymph % (
[2020-01-18 08:00] VITALS: BP 138/55; PULSE 70; PULSE 80; RESP 14; TEMP 36.6; O2SAT 95
[2020-01-18 08:08] LABS: Sodium, Urine 24 mmol/L (Not Estab.)
--- NOTE | 2020-01-18 10:30 | PC.NURSE ---
DISCUSSED DISCHARGE INSTRUCTIONS WITH PT AND DAUGHTER INCLUDING FOLLOW UP APPOINTMENT AND MEDICATIONS. THEY VERBALIZED AN UNDERSTANDING. IV WAS REMOVED WITH CATHETER INTACT. KOBAN AND 4X4S APPLIED. NO REPORTS OF PAIN OR NAUSEA THROUGHOUT SHIFT. PT RECEIVED MAGNESIUM BEFORE DC AND TOLERATED WELL. PT HAD NO EPISODES OF DIARRHEA THIS SHIFT. PT WAS PROVIDED WITH DR VARELA AND DR HERNANDEZ'S OFFICE PHONE NUMBER PER REQUEST OF DAUGHTER. ENSURED PT RECEIVED BEDSIDE COMMODE AND WALKER FROM [facility] YESTERDAY AND DAUGHTER STATED SHE DID. PT IS CURRENTLY GETTING DRESSED. BED IN LOWEST POSITION. CALL LIGHT WITHIN REACH. VSS. WILL CONTINUE TO MONITOR.
[2020-01-18 17:15] LABS: Osmolality, Urine 371 mOsmol/kg (.)
== END 2020-01-18 11:35 | disposition home or self-care (01) | DRG 552 ==
LOC: ER 19:19 → 2ND 20:11
PROVIDERS: Internal Medicine Adolescent Medicine; Admitting Provider Internal Medicine Adolescent Medicine; Emergency Provider Emergency Medicine; PCP Pediatrics; Visit Provider Internal Medicine Adolescent Medicine
DX: M54.2 Cervicalgia (principal); M62.82 Rhabdomyolysis; N17.9 Acute kidney failure, unspecified; F11.23 Opioid dependence with withdrawal; I25.10 Atherosclerotic heart disease of native coronary artery without angina pectoris; I11.9 Hypertensive heart disease without heart failure; E11.9 Type 2 diabetes mellitus without complications; E86.0 Dehydration; Z87.891 Personal history of nicotine dependence; Z82.49 Family history of ischemic heart disease and other diseases of the circulatory system; R19.7 Diarrhea, unspecified; E03.9 Hypothyroidism, unspecified; Z79.02 Long term (current) use of antithrombotics/antiplatelets; Z79.82 Long term (current) use of aspirin; W01.0XXA Fall on same level from slipping, tripping and stumbling without subsequent striking against object, initial encounter; Y92.019 Unspecified place in single-family (private) house as the place of occurrence of the external cause
CPT/HCPCS: 36415; 70450; 71045; 71046; 72100; 72125; 80048; 80053; 81001; 82550; 82962; 83605; 83690; 83735; 83935; 84100; 84300; 84484; 85025; 86328; 87506; 93005; 96365; 96366; 99284; J2405

== ENCOUNTER 2020-10-07 18:27 | Observation (INO) | payer MEDICARE, SELFPAY ==
[2020-10-07 18:29] VITALS: BP 173/55; PULSE 72; RESP 18; TEMP 37.1; O2SAT 95; BMI 32.8
--- NOTE | 2020-10-07 18:45 | CT_ITS ---
PROCEDURE INFORMATION: Exam: CT Abdomen And Pelvis Without Contrast Exam date and time: 10/07/20 06:45 PM Age: 75 years old Clinical indication: Injury or trauma; Fall; Blunt; Generalized; Additional info: Fall left side trauma TECHNIQUE: Imaging protocol: Computed tomography of the abdomen and pelvis without contrast. Radiation optimization: All CT scans at this facility use at least one of these dose optimization techniques: automated exposure control; mA and/or kV adjustment per patient size (includes targeted exams where dose is matched to clinical indication); or iterative reconstruction. COMPARISON: [facility] CT abdomen pelvis wo con 07/29/17 09:36 PM FINDINGS: Tubes, catheters and devices: None noted. Lungs: Lung bases appear clear. Heart: No significant coronary calcifications. No cardiomegaly. No significant pericardial effusion. Liver: Normal. No mass. Gallbladder and bile ducts: Normal. No calcified stones. No ductal dilation. Pancreas: Normal. No ductal dilation. Spleen: Normal. No splenomegaly. Adrenal glands: Normal. No mass. Kidneys and ureters: Normal. No hydronephrosis. Stomach and bowel: Unremarkable. No obstruction. No mucosal thickening. Appendix: No evidence of appendicitis. Intraperitoneal space: Unremarkable. No free air. No significant fluid collection. Retroperitoneal space: No significant retroperitoneal inflammatory changes are noted. Vasculature: Unremarkable. No abdominal aortic aneurysm. Lymph nodes: Unremarkable. No enlarged lymph nodes. Urinary bladder: Unremarkable as visualized. Reproductive: Unremarkable as visualized. Bones/joints: Vacuum discs at all interlumbar levels. No acute fracture. Soft tissues: Unremarkable. IMPRESSION: No acute traumatic findings.
--- NOTE | 2020-10-07 18:45 | XR_ITS ---
PROCEDURE INFORMATION: Exam: XR Chest Exam date and time: 10/07/20 06:45 PM Age: 75 years old Clinical indication: Shortness of breath; Patient HX: SOA TECHNIQUE: Imaging protocol: XR of the chest. Views: 1 view. COMPARISON: CR XR CHEST 2V 01/17/20 09:02 AM FINDINGS: Lungs: Unremarkable. No consolidation. Pleural spaces: Unremarkable. No pleural effusion. No pneumothorax. Heart/Mediastinum: Unremarkable. No cardiomegaly. Bones/joints: Unremarkable. IMPRESSION: No acute findings.
--- NOTE | 2020-10-07 18:46 | CT_ITS ---
PROCEDURE INFORMATION: Exam: CT Chest Without Contrast; Diagnostic Exam date and time: 10/07/20 06:46 PM Age: 75 years old Clinical indication: Injury or trauma; Fall; Blunt trauma (contusions or hematomas); Patient HX: Patient fell 4 days ago. ; Additional info: Pte TECHNIQUE: Imaging protocol: Diagnostic computed tomography of the chest without contrast. 3D rendering (Not supervised by radiologist): MIP and/or 3D reconstructed images were created by the technologist. Radiation optimization: All CT scans at this facility use at least one of these dose optimization techniques: automated exposure control; mA and/or kV adjustment per patient size (includes targeted exams where dose is matched to clinical indication); or iterative reconstruction. COMPARISON: CR XR CHEST PORTABLE 10/07/20 07:27 PM FINDINGS: Lungs: Unremarkable. No consolidation. No masses. Pleural spaces: Unremarkable. No pneumothorax. No pleural effusion. Heart: Severe coronary calcifications. No cardiomegaly. No pericardial effusion. Aorta: Unremarkable. No aortic aneurysm. Lymph nodes: Unremarkable. No enlarged lymph nodes. Bones/joints: Unremarkable. No acute fracture. Soft tissues: Unremarkable. IMPRESSION: 1. No acute traumatic findings. 2. Severe coronary calcifications. Coronary calcium scoring study recommended. Cardiology consultation recommended.
--- NOTE | 2020-10-07 18:48 | HMH.EDGENADL ---
ED Disposition Condition on Discharge: Good - Critical Care Critical Care Time: No <Luís Orielly - Last Filed: 10/07/20 20:01> <Elias Norris - Last Filed: 10/07/20 23:12> Clinical Impression: Dizziness Chest pain Qualifiers: Chest pain type: precordial pain Qualified Code(s): R07.2 - Precordial pain Fall Qualifiers: Encounter type: initial encounter Qualified Code(s): W19.XXXA - Unspecified fall, initial encounter Disposition: Admitted as Observation Attestation: On 10/07/20, the high probability of a clinically significant, sudden or life threatening deterioration of the following system(s) required my full and direct attention, intervention and personal management. The time I documented below is in addition to time spent performing reported procedures but includes the following listed in this critical care notation. Medical Decision Making - Medical Records Medical records reviewed: Yes: I reviewed the patient's medical records. - Deon Inquiry Pt receiving controlled substance: No - Lab Data Result diagrams: 10/07/20 19:00 10/07/20 19:00 <Luís Oreilly - Last Filed: 10/07/20 20:01> - Lab Data Lab results reviewed: Yes: I reviewed the patient's lab results. Result diagrams: 10/07/20 19:00 10/07/20 19:00 - Radiology Data #1 Image(s): Chest Image Reviewed: Yes I have reviewed radiologist's interpretation Preliminary Findings: Abnormal - CT Data CT Scan: Abdomen, Pelvis, Chest Time Received: 23:[address] Reviewed: Yes: I have viewed the radiologist's interpretation Preliminary Findings: Abnormal (see report ) - ECG Data Tracing #1 Normal Sinus Rhythm: Yes Ischemic changes: non-specific ST-T wave changes - Physician Consults Physician Consulted: roge Reason -: Admission - MADHU Score for Non-Stemi Age of Patient: 70-79 years old Heart Rate: 70-89 bpm Systolic Blood Pressure: 160-199 mmHg Serum Creatinine: 0.80-1.19 mg/dl CHF [place] Class: I-No CHF Other Risk Factors: None Non-Stemi Risk Score: 101 <Elias Norris - Last Filed: 10/07/20 23:12> Vital Signs: 10/07/20 18:29 10/07/20 20:36 10/07/20 21:01 Temperature 98.7 F Temperature Source Oral Pulse Rate 71 65 Pulse Rate [Right Radial] 72 Respiratory Rate 18 Blood Pressure 152/66 H 163/66 H Blood Pressure [Right Arm] 173/55 H Blood Pressure Mean [Right Arm] 94 Blood Pressure Source [Right Arm] Automatic Cuff Blood Pressure Position [Right Arm] Sitting 02 Sat by Pulse Oximetry 95 97 95 Oxygen Delivery Method Room Air Room Air 10/07/20 21:31 Temperature Temperature Source Pulse Rate 61 Pulse Rate [Right Radial] Respiratory Rate Blood Pressure 149/63 H Blood Pressure [Right Arm] Blood Pressure Mean [Right Arm] Blood Pressure Source [Right Arm] Blood Pressure Position [Right Arm] 02 Sat by Pulse Oximetry 92 L Oxygen Delivery Method Room Air - Lab Data Lab Results 10/07/20 19:00: WBC 7.9, RBC 3.73 L, Hgb 11.2 L, Hct 33.3 L, MCV 89.3, MCH 29.9, MCHC 33.5, RDW 13.9, Plt Count 243, MPV 8.4, Neut % (Auto) 58.7, Lymph % (Auto) 31.5, [place] % (Auto) 7.3, Eos % (Auto) 1.7, Baso % (Auto) 0.7, Neut # (Auto) 4.7, Lymph # (Auto) 2.5, [place] # (Auto) 0.6, Eos # (Auto) 0.1, Baso # (Auto) 0.1 10/07/20 19:00: Sodium 138, Potassium 4.3, Chloride 102, Carbon Dioxide 27, Anion Gap 13.3, BUN 23 H, Creatinine 1.00, Estimated Creat Clear 62, Estimated GFR 54 L, Est GFR ( Amer) 65, Glucose 88, Calcium 8.8, Magnesium 1.5 L, Total Bilirubin 0.3, AST 26, ALT 11 L, Alkaline Phosphatase 83, Troponin I < 0.01, Total Protein 7.1, Albumin 4.0, Globulin 3.1, Albumin/Globulin Ratio 1.3 10/07/20 22:13: Troponin I < 0.01 10/07/20 22:23: SARS-CoV-2 (PCR) Not detected, Influenza A Untype (PCR) Not detected, Influenza Type B (PCR) Not detected Orders (Tests/Meds): ED MEDICATIONS Generic Name Dose Route Start Last Admin Trade Name Freq PRN Reason Stop Dose Admin Sodium Chloride 500 mls @
--- NOTE | 2020-10-07 19:07 | ECG_ITS ---
APPROVED REPORT Exam: Resting ECG HR:91 bpm ECG Measurements Heart Rate 91 AXES QRSd 98 QRS 101 QT 358 T 82 QTc 440 Conclusion Atrial fibrillation Rightward axis Low voltage QRS Incomplete right bundle branch block Abnormal ECG Electronically signed by : Fito Baugh MD 10/09/2020 12:06:18
[2020-10-07 19:13] LABS: Basophils # 0.1 K/mm3 (0-0.2); Basophils % 0.7 % (0.1-2.0); Eosinophils # 0.1 K/mm3 (0.0-0.4); Eosinophils % 1.7 % (0.1-12.0); Hematocrit 33.3 % (37.0-47.0); Hemoglobin 11.2 g/dL (12.2-16.2); Lymphocytes # 2.5 K/mm3 (0.7-4.5); Lymphocytes % 31.5 % (10-50); Mean Corpuscular HGB Conc 33.5 g/dL (31.8-35.4); Mean Corpuscular Hemoglobin 29.9 pg (27.0-31.2); Mean Corpuscular Volume 89.3 fl (81-99); Mean Platelet Volume 8.4 fl (7.4-10.4); Monocytes # 0.6 K/mm3 (0.1-1.0); Monocytes % 7.3 % (1.7-9.3); Neutrophils # 4.7 K/mm3 (1.8-7.8); Neutrophils % 58.7 % (37.0-80.0); Platelet Count 243 K/mm3 (142-424); Red Blood Count 3.73 M/mm3 (4.20-5.40); Red Cell Distribution Width 13.9 % (11.5-17.5); White Blood Count 7.9 K/mm3 (4.8-10.8)
[2020-10-07 19:20] LABS: Alanine Aminotransferase 11 U/L (12-78); Albumin/Globulin Ratio 1.3 (1.1-1.8); Alkaline Phosphatase 83 U/L (38-126); Anion Gap 13.3 mEq/L (5-15); Aspartate Amino Transferase 26 U/L (14-36); Bilirubin,Total 0.3 mg/dl (0.2-1.3); Blood Urea Nitrogen 23 mg/dl (7-17); Calcium 8.8 mg/dl (8.4-10.2); Carbon Dioxide 27 mmol/L (22.0-30.0); Chloride 102 mmol/L (98-107); Creatinine Clearance Estimated 62 mL/min (50-200); Estimated Glomerular Filt Rate 54 ml/min (>60); GFR (African American) 65 ML/MIN (>60); Globulin 3.1 g/dL (1.3-3.2); Glucose 88 mg/dl (74-100); Magnesium 1.5 mg/dl (1.6-2.3); Potassium 4.3 mmoL/L (3.5-5.1); Sodium 138 mmol/L (136-145); Total Protein,Serum 7.1 g/dl (6.3-8.2)
[2020-10-07 19:32] LABS: Troponin I < 0.01 ng/ml (0.00-0.034)
--- NOTE | 2020-10-07 20:29 | PC.NURSE ---
@ 2009 RADIOLOGY CALLED THIS RN STATING PT WAS REFUSING IV CONTRAST, PT DENIES ANY ALLERGY TO CONTRAST HOWEVER CONTINUED TO REFUSE. DR PADRON NOTIFIED AND OK'ED FOR CT CHEST AND ABD TO BE WITHOUT CONTRAST. PT AWARE THAT WE CAN NOT DETECT PE'S WITHOUT CONTRAST.
[2020-10-07 20:36] VITALS: BP 152/66; PULSE 71; O2SAT 97
[2020-10-07 21:01] VITALS: BP 163/66; PULSE 65; O2SAT 95
[2020-10-07 21:31] VITALS: BP 149/63; PULSE 61; O2SAT 92
--- NOTE | 2020-10-07 22:22 | PC.NURSE ---
DR PADRON S/W DR MCCABE FOR POSS ADMISSION
[2020-10-07 22:31] LABS: Coronavirus 19, PCR Not Detected (NotDetected); Influenza A, PCR Not Detected (NotDetected); Influenza B, PCR Not Detected (NotDetected)
[2020-10-07 22:44] LABS: Troponin I < 0.01 ng/ml (0.00-0.034)
--- NOTE | 2020-10-07 23:34 | PC.NURSE ---
Attempted to call report and RN was not aware of getting pt
[2020-10-08] VITALS (9 sets, daily range): BP systolic 115–183; BP diastolic 43–78; PULSE 40–70; RESP 15–19; TEMP 36.5–37.1; O2SAT 92–98; BMI 29.9
--- NOTE | 2020-10-08 00:24 | PC.NURSE ---
PT ARRIVED TO FLOOR VIA W/C FROM ED W/STAFF AT 0023
[2020-10-08 01:16] LABS: Microscopic, Urine URINE MICROSCOPIC (MICROSCOPIC)
[2020-10-08 01:23] LABS: Appearance,Urine CLEAR (Clear); Bilirubin,Urine Negative (Negative); Blood, Urine Negative (Negative); Color,Urine YELLOW (Yellow); Glucose,Urine (UA) Negative (Negative); Ketones,Urine Negative (Negative); Leukocyte Esterase,Urine Negative (Negative); Nitrate,Urine Negative (Negative); Protein,Urine Negative (Negative); Urobilinogen,Urine 0.2 EU/dl (0.2)
[2020-10-08 01:40] LABS: Bacteria,Urine Trace /lpf; WBC,Urine Occasional #/hpf (0-3)
--- NOTE | 2020-10-08 05:56 | PC.NURSE ---
She has requested frequent pain medication for back pain. Safety set while in bed.
[2020-10-08 06:28] LABS: Basophils # 0.1 K/mm3 (0-0.2); Basophils % 0.5 % (0.1-2.0); Eosinophils # 0.2 K/mm3 (0.0-0.4); Eosinophils % 1.6 % (0.1-12.0); Hematocrit 34.2 % (37.0-47.0); Hemoglobin 11.7 g/dL (12.2-16.2); Lymphocytes % 20.9 % (10-50); Mean Corpuscular HGB Conc 34.3 g/dL (31.8-35.4); Mean Corpuscular Hemoglobin 30.3 pg (27.0-31.2); Mean Corpuscular Volume 88.4 fl (81-99); Mean Platelet Volume 8.7 fl (7.4-10.4); Monocytes # 0.7 K/mm3 (0.1-1.0); Monocytes % 6.9 % (1.7-9.3); Neutrophils # 6.8 K/mm3 (1.8-7.8); Neutrophils % 70.1 % (37.0-80.0); Platelet Count 237 K/mm3 (142-424); Red Blood Count 3.87 M/mm3 (4.20-5.40); Red Cell Distribution Width 14.2 % (11.5-17.5); White Blood Count 9.7 K/mm3 (4.8-10.8)
[2020-10-08 06:31] LABS: Chloride 104 mmol/L (98-107)
[2020-10-08 06:32] LABS: Potassium 3.9 mmoL/L (3.5-5.1); Sodium 140 mmol/L (136-145)
[2020-10-08 06:34] LABS: Blood Urea Nitrogen 21 mg/dl (7-17); Creatinine Clearance Estimated 57 mL/min (50-200); Estimated Glomerular Filt Rate 81 ml/min (>60); GFR (African American) 98 ML/MIN (>60)
[2020-10-08 06:35] LABS: Anion Gap 11.9 mEq/L (5-15); Calcium 9.1 mg/dl (8.4-10.2); Carbon Dioxide 28 mmol/L (22.0-30.0); Chol/HDL Ratio 4.4 (1-3.5); Cholesterol 188 mg/dl (140-200); Glucose 86 mg/dl (74-100); HDL Cholesterol 43 mg/dl (40-60); Magnesium 1.6 mg/dl (1.6-2.3); Triglycerides 128 mg/dl (30-150); VLDL Cholesterol 26 mg/dL (0-40)
[2020-10-08 06:46] LABS: Direct LDL Cholesterol 100.21 mg/dL (100-129)
--- NOTE | 2020-10-08 07:50 | HMH.CNCARD ---
History of Present Illness Consult date: 10/08/20 Requesting physician: Amilcar Whitehead Consult reason: chest pain Chief complaint: Chest pain History of present illness: 75-year-old female admitted to [facility] with generalized weakness and fatigue. Patient presented to the emergency room last evening with generalized weakness and dizziness. Patient is very vague on her description of her complaints. Patient is incoherent and refusing therapy. Patient is alert and oriented to person and place but when asked about medical history patient becomes confused. Patient is a poor historian. Patient denies chest pain, tightness or pressure during this assessment. Patient did state that she did have a fall 1 day ago landing on her left sided abdominal area. Patient states the fall was due to tripping over a step at the [employer] store. Patient states she did not blackout. Patient states that she has been having increased shortness of breath since that fall. Patient states she just has not felt well since the fall. Patient denies dizziness at this time. Denies palpitations. Slight swelling noted of the lower extremities. Patient states she is unsure as to when and if she is ever seen a cut out stitcher. Patient is unsure if she has coronary artery disease. Patient is unsure if she is ever had a heart catheterization. CT of the chest was performed which revealed severe coronary calcification, no cardiomegaly or pericardial effusion. ED MD requested cardiac consult due to severe coronary calcification. Abdominal CT revealed no significant coronary calcification. Patient currently at this time is refusing IV fluids. Initial EKG revealed sinus rhythm with nonspecific ST or T wave changes. conveyor monitor reveals patient in sinus bradycardia with occasional PVC. BP is stable. Per ED records, patient is known to have history of coronary artery disease, hypertension and hyperlipidemia. Serial troponins are negative x2. Renal function is stable. Echocardiogram has been obtained. Preliminary echocardiogram reveals mild to moderate aortic valve insufficiency with mild aortic valve regurgitation. EF greater than 55%. Mild MR and TR also noted. Waiting official echocardiogram results. Chest x-ray had been performed which revealed no acute findings. Chest CT:FINDINGS: Lungs: Unremarkable. No consolidation. No masses. Pleural spaces: Unremarkable. No pneumothorax. No pleural effusion. Heart: Severe coronary calcifications. No cardiomegaly. No pericardial effusion. Aorta: Unremarkable. No aortic aneurysm. Lymph nodes: Unremarkable. No enlarged lymph nodes. Bones/joints: Unremarkable. No acute fracture. Soft tissues: Unremarkable. IMPRESSION: 1. No acute traumatic findings. 2. Severe coronary calcifications. Coronary calcium scoring study recommended. Cardiology consultation recommended. Abd CT:FINDINGS: Tubes, catheters and devices: None noted. Lungs: Lung bases appear clear. Heart: No significant coronary calcifications. No cardiomegaly. No significant pericardial effusion. Liver: Normal. No mass. Gallbladder and bile ducts: Normal. No calcified stones. No ductal dilation. Pancreas: Normal. No ductal dilation. Spleen: Normal. No splenomegaly. Adrenal glands: Normal. No mass. Kidneys and ureters: Normal. No hydronephrosis. Stomach and bowel: Unremarkable. No obstruction. No mucosal thickening. Appendix: No evidence of appendicitis. Intraperitoneal space: Unremarkable. No free air. No significant fluid collection. Retroperitoneal space: No significant retroperitoneal inflammatory changes are noted. Vasculature: Unremarkable. No abdominal aortic aneurysm. Lymph nodes: Unremarkable. No enlarged lymph nodes. Urinary bladder: Unremarkable as visualized. Reproductive: Unremarkable as visualized. Bones/joints: Vacuum discs at all interlumbar levels. No acute fracture. Soft tissues:
--- NOTE | 2020-10-08 08:00 | CA_ITS ---
APPROVED REPORT EXAM: Comprehensive 2D, Doppler, and color-flow Echocardiogram [facility] Specialist: Karol Bush RT(R) Ht: 5 ft 3 in Wt: 185lbs BSA: 1.87 BP: 163/66 mmHg Indications: CP, HTN, ex smoker, hyperlipidemia, family history of HD, CAD 2D Dimensions LVOT 1.93 cm (M/F) 1.5-2.5 LVEF (Evans's) 64.80 % LV Volume 104.50 mL LA Volume 80.30 mL LA Volume Index 42.90 mL/m2 (M/F) 16-34 M-Mode Dimensions RVDd 2.74 cm (0.9-2.6) LA Diam 5.30 cm (1.9-4.0) LVDd 4.18 cm (3.5-5.7) Ao Diam 2.33 cm (2.0-3.7) LVDs 2.36 cm (3.5-5.7) IVSd 0.80 cm (0.6-1.1) PWd 1.06 cm (0.6-1.1) EF (Teich) 75.20% FS 43.50% EDV (Teich) 77.70 mL ESV (Teich) 19.30 mL LV Diastology E Decel Time 310.00 (160-240 msec) E/A Ratio 1.17 MED E' 6.00 (< 7 cm/sec) E'/MED E' Ratio 21.15 (>14) LAT E' 7.30 (<10 cm/sec) E/LAT E' Ratio 17.38 (>14) Aortic Valve LVOT Max 113.00 (70-110 cm/s) LVOT VTI 29.13 cm AoV Peak Rodri. 251.00 (50-130 cm/s) AI PHT 600.00 ms AO Peak GR. 25.30 mmHg AO Mean GR. 12.40 (<5 mmHg) AO VTI 61.13 (18-25 cm) MCKENZIE (VTI) 1.39 (2.5-4.5 cm2) Mitral Valve MV E Max Rodri. 127.00 (40-130 cm/s) MV A Velocity 108.00 (40-130 cm/s) E/A Ratio 1.17 MV Decel. Time 310.00 (160-240 ms) MV PHT 91.00 ms Tricuspid Valve TR P. Velocity 299.00 cm/s RAP Estimate 10.00 mmHg RVSP 45.70 mmHg Left Ventricle Left atrium is moderately enlarged, left ventricle is normal size, mild concentric left ventricular hypertrophy, visually estimated ejection fraction 55% with no regional wall motion abnormality, grade 2 diastolic dysfunction seen with tissue Doppler evidence of raise left atrial pressure. Right Ventricle Right atrium and right ventricle are normal size and contractility. Aortic Valve Aortic valve is thickened and calcified, mean gradient across valve is 14 mmHg, valve area 1.43 cm???, represents mild aortic stenosis, there is mild aortic insufficiency. Mitral Valve Mitral valve has mitral calcification which extends in both anterior posterior mitral leaflet, there is no mitral stenosis, there is mild mitral regurgitation. Tricuspid Valve Tricuspid grossly normal, there is mild tricuspid regurgitation, tricuspid regurgitation jet velocity is inadequate for calculation of the right ventricular systolic pressure. Pulmonic Valve Pulmonic valve is poorly visualized. Great Vessels Aortic root is normal size. Inferior vena cava is not well visualized. Pericardium No significant pericardial effusion noted. Conclusion 1. Moderately enlarged left atrium, normal left ventricular size, mild concentric left ventricular hypertrophy, visually estimated ejection fraction 55% with no regional wall motion abnormality, grade 2 diastolic dysfunction seen with tissue Doppler evidence of raise left atrial pressure. 2. Thickened and calcified aortic valve with mild aortic stenosis, there is mild aortic insufficiency. 3. Mild mitral and tricuspid regurgitation. 4. No significant pericardial effusion noted. Electronically signed by : Vick Hatfield MD 10/08/2020 13:56:54
--- NOTE | 2020-10-08 08:35 | P.CONPHA_ITS ---
[facility] Pharmacy VTE Monitoring - Patient Demographics Admission date: 10/08/20 Report Date: 10/08/20 Time: 08:35 Allergies/Adverse Reactions: Patient Allergies morphine Allergy (Intermediate, Verified 10/08/20 00:29) phenobarbital Allergy (Intermediate, Verified 10/08/20 00:29) Height: 1.6 m Weight: 76.714 kg Patient Problems: Current Active Problems Fall (Acute) Dizziness (Acute) Chest pain (Acute) - VTE Risk Labs: VTE Related Lab Results Hgb 11.7 g/dL (12.2-16.2) L 10/08/20 05:50 Hct 34.2 % (37.0-47.0) L 10/08/20 05:50 Plt Count 237 K/mm3 (142-424) 10/08/20 05:50 BUN 21 mg/dl (7-17) H 10/08/20 05:50 Creatinine 0.70 mg/dl (0.52-1.04) D 10/08/20 05:50 Estimated Creat Clear 57 mL/min (50-200) 10/08/20 05:50 Was VTE Risk Assessment Performed: Yes VTE Score: 4 VTE Risk Level: Low Risk Clinical Trial Participant: No - Prophylaxis VTE Prophylaxis Ordered?: Yes Types of VTE Prophylaxis: TEDS Knee High
--- NOTE | 2020-10-08 08:50 | HMH.PHAINT ---
MEDICATION RECONCILIATION COMPLETE USING EXTERNAL PHARMACY FILL HISTORY AND LIST FROM MD OFFICE.
--- NOTE | 2020-10-08 11:55 | HMH.PTEV ---
Physical Therapy Evaluation Rehab PT IP Evaluation Start: 10/08/20 09:12 Freq: ONCE Status: Active Protocol: Document 10/08/20 11:50 PHORNE (Rec: 10/08/20 11:55 PHORNE [id number]) Subjective/History History History 75 yowf adm to [facility] with generalized weakness. She reports she lives alone, but has family nearby and she is independent with all mobility without AD. Subjective Subjective Pt with no c/o this am. Rehab PT IP Eval Objective Appearance Patient Behavior Appropriate Patient Orientation Person,Place,Time Difficulty following instructions none Speech Pattern Clear Ambulation Patient Able to Ambulate Yes Ambulation Observation IP General Gait Pattern Observation Wide Based Gait Ambulation Distance (feet) 50 Ambulation Assistive Device None Ambulation Ability Supervision/Stand by Balance Ability to Arise Able, uses arms to help Sitting Balance Steady, safe Standing Balance Steady, wide stance Dynamic Sitting Balance Ability Good Dynamic Standing Balance Ability Good Transfers Bed Transfer Ability Supervision/Stand by Chair Transfer Ability Supervision/Stand by Sit to Stand Bed Transfer Ability Supervision/Stand by Sit to Stand Chair Transfer Ability Supervision/Stand by ROM All Extremities PT ROM Status WFL MMT All Extremities PT MMT WFL Rehab PT IP prob,goals,plan Problems Date of Evaluation: 10/08/20 Discharge Plan PT Discharge Plan Pt appears to be at baseline for all mobility at this time and is appropriate to return home once medically stable. G -code Required No Eval Complexity Eval Charge Codes 64237 - Moderate Complexity PHYSICIAN CERTIFICATION: I certify the specified therapy services for Keri Mcbride are required, authorized, and reviewed every 30 days.
--- NOTE | 2020-10-08 14:55 | HMH.HPDC ---
General - General Admission date:: 10/08/20 Discharge date: 10/08/20 *Admission Date: 10/08/20 *Chief complaint: fall [place] the [employer] with left sided pain *History of present illness: Ms. Mcbride is a 75-year-old female who fell yesterday going into the [employer]. She states she landed on her left side and EMS wanted to transfer her to the emergency room but she refused. Her daughter actually brought her into the ER for evaluation. She states she did not hit her head but did hit her left hip and the left side of her chest. She states she has had some pain in the hip and the chest since the fall and had felt weak. She denies any dizziness or palpitations. She apparently had some complaints of chest pain in the emergency room, therefore cardiology was consulted. She states she has no heart problems and denies any chest pain today. She has been seen in consultation by cardiology and they ordered an echo. A CT of the chest was performed during her work-up and showed severe coronary calcification. Her abdominal CT however revealed no significant coronary calcification. Her EKG showed sinus rhythm with nonspecific ST-T wave changes. She does have a history of coronary artery disease, hypertension, hyperlipidemia per ER records. Her troponins were all normal and her echocardiogram showed an EF of 55% with grade 2 diastolic dysfunction. There was also a thickened and calcified aortic valve with mild aortic stenosis. Her abdominal pelvic CT showed no acute fractures. Her chest CT showed no acute fractures. She was admitted for further evaluation and treatment. [facility] History I have reviewed the patient's past medical history: Yes Medical History: Reports:: Coronary Artery Disease, Diabetes Mellitus Type 2, Hyperlipidemia, Hypertension Denies:: Cancer, Diabetes Mellitus Type 1, MRSA *Have you ever received a pneumonia vaccine?: No *Have you received a flu vaccine this season?: No Other Medical History: Reports: Arthritis, Thyroid Disease Other Surgeries: Yes: Cardiac Catheterization, Other Amputation: No Fractures: No - *Social History Last grade of school completed: 9th or 10th Smoking Status: Former smoker Tobacco Type: cigarettes Alcohol Intake: never Substance Use Type: denies use *Occupational Status:: retired Household Members: none *Travel in the last 8 weeks: None Family Hx:: Cancer, Coronary Artery Disease, Diabetes, Hyperlipidemia, Hypertension, Kidney Disease, Stroke Review of Systems - Constitutional Reports weakness - Eyes Denies blurry vision, Denies double vision - *Cardiovascular Denies chest pain, Denies shortness of breath - *Respiratory Denies cough, Denies shortness of breath - *Gastrointestinal Reports nausea, Denies abdominal pain, Denies loose stools, Denies vomiting - *Genitourinary Denies difficulty urinating, Denies painful urination - *Musculoskeletal Reports body aches, Reports stiffness - *Neurologic Reports abnormal walking, Reports weakness, Denies headache(s), Denies numbness Exam Vital signs and Labs for Last 24 Hours: Temp Pulse Resp BP Pulse Ox 98.7 F 47 L 15 128/43 L 98 10/08/20 12:00 10/08/20 12:00 10/08/20 12:00 10/08/20 12:00 10/08/20 12:00 Laboratory Results - last 24 hr 10/07/20 19:00: WBC 7.9, RBC 3.73 L, Hgb 11.2 L, Hct 33.3 L, MCV 89.3, MCH 29.9, MCHC 33.5, RDW 13.9, Plt Count 243, MPV 8.4, Neut % (Auto) 58.7, Lymph % (Auto) 31.5, [place] % (Auto) 7.3, Eos % (Auto) 1.7, Baso % (Auto) 0.7, Neut # (Auto) 4.7, Lymph # (Auto) 2.5, [place] # (Auto) 0.6, Eos # (Auto) 0.1, Baso # (Auto) 0.1 10/07/20 19:00: Sodium 138, Potassium 4.3, Chloride 102, Carbon Dioxide 27, Anion Gap 13.3, BUN 23 H, Creatinine 1.00, Estimated Creat Clear 62, Estimated GFR 54 L, Est GFR ( Amer) 65, Glucose 88, Calcium 8.8, Magnesium 1.5 L, Total Bilirubin 0.3, AST 26, ALT 11 L, Alkaline Phosphatase 83, Troponin I < 0.01, Total Protein 7.1, Albumin 4.0, Globulin 3.1, Albumin/Globulin
== END 2020-10-08 16:03 | disposition home or self-care (01) ==
LOC: ER 22:45 → 2ND 23:12
PROVIDERS: Emergency Medicine; Admitting Provider Family Medicine; Emergency Provider Emergency Medicine; PCP Family Medicine; Visit Provider Family Medicine
DX: M25.552 Pain in left hip (principal); R07.9 Chest pain, unspecified; I10 Essential (primary) hypertension; W01.0XXA Fall on same level from slipping, tripping and stumbling without subsequent striking against object, initial encounter; Z20.822 Contact with and (suspected) exposure to COVID-19; I25.10 Atherosclerotic heart disease of native coronary artery without angina pectoris; E11.9 Type 2 diabetes mellitus without complications; E78.5 Hyperlipidemia, unspecified; E03.9 Hypothyroidism, unspecified; Z79.02 Long term (current) use of antithrombotics/antiplatelets; Z88.8 Allergy status to other drugs, medicaments and biological substances; Z79.899 Other long term (current) drug therapy; Z91.81 History of falling; Y92.480 Sidewalk as the place of occurrence of the external cause; Z87.891 Personal history of nicotine dependence
CPT/HCPCS: G0378; 36415; 71045; 71250; 74176; 80048; 80053; 80061; 81001; 83735; 84484; 85025; 93005; 93306; 96365; 96375; 97162; 99284; J2405; U0003

== ENCOUNTER 2022-04-12 12:44 | Emergency (ER) | payer MEDICARE, SELFPAY ==
--- NOTE | 2022-04-12 12:44 | ECG_ITS ---
APPROVED REPORT Exam: Resting ECG HR:66 bpm ECG Measurements Heart Rate 66 AXES CO 198 P 21 QRSd 78 QRS 3 QT 399 T 15 QTc 412 Conclusion SINUS RHYTHM NORMAL ECG UNCONFIRMED REPORT Electronically signed by : Fito Baugh MD 04/12/2022 20:01:27
[2022-04-12 12:49] VITALS: BP 172/68; PULSE 71; RESP 16; TEMP 36.6; O2SAT 96; BMI 35.4
--- NOTE | 2022-04-12 12:53 | XR_ITS ---
FINAL REPORT CLINICAL HISTORY: chest pain COMPARISON: 10/07/2020 FINDINGS: SINGLE-VIEW CHEST The heart size is normal. The mediastinum is normal. The lungs are clear. There is no pneumothorax. IMPRESSION: No acute cardiopulmonary process. Reviewed, Interpreted and Dictated by Brayan Hopkins III, MD Transcribed by Ruth Ann Gruber Authenticated and . [facility]
[2022-04-12 12:58] LABS: Basophils # 0.1 K/mm3 (0-0.2); Basophils % 0.9 % (0.1-2.0); Eosinophils # 0.1 K/mm3 (0.0-0.4); Eosinophils % 0.9 % (0.1-12.0); Hematocrit 38.4 % (37.0-47.0); Hemoglobin 12.7 g/dL (12.2-16.2); Lymphocytes # 1.6 K/mm3 (0.7-4.5); Lymphocytes % 22.5 % (10-50); Mean Corpuscular HGB Conc 33.2 g/dL (31.8-35.4); Mean Corpuscular Hemoglobin 30.2 pg (27.0-31.2); Mean Corpuscular Volume 91.1 fl (81-99); Mean Platelet Volume 8.5 fl (7.4-10.4); Monocytes # 0.5 K/mm3 (0.1-1.0); Monocytes % 7.1 % (1.7-9.3); Neutrophils # 4.8 K/mm3 (1.8-7.8); Neutrophils % 68.7 % (37.0-80.0); Platelet Count 274 K/mm3 (142-424); Red Blood Count 4.21 M/mm3 (4.20-5.40); Red Cell Distribution Width 13.8 % (11.5-17.5)
[2022-04-12 13:11] LABS: Chloride 107 mmol/L (98-107); Sodium 142 mmol/L (136-145)
[2022-04-12 13:14] LABS: Blood Urea Nitrogen 17 mg/dl (7-17); Calcium 8.7 mg/dl (8.4-10.2); Carbon Dioxide 31 mmol/L (22.0-30.0); Creatinine Clearance Estimated 65 mL/min (50-200); Estimated Glomerular Filt Rate 69 ml/min (>60); GFR (African American) 84 ML/MIN (>60); Glucose 113 mg/dl (74-100)
[2022-04-12 13:24] LABS: NT Pro Brain Natriuretic Pep. 882 pg/mL (0-450)
[2022-04-12 13:27] LABS: Troponin I 0.02 ng/ml (0.00-0.034)
--- NOTE | 2022-04-12 13:29 | CA_ITS ---
FINAL REPORT CLINICAL HISTORY: LLE tenderness, swelling, cord posteriorlt FINDINGS: Color Doppler, duplex Doppler and compression sonography of the bilateral lower extremities was performed. There is no evidence of deep venous thrombosis from the level of the groin to the calf. The deep veins are patent and compressible. IMPRESSION: No evidence of deep venous thrombosis bilateral lower extremities. Reviewed, Interpreted and Dictated by Brayan Hopkins III, MD Transcribed by Ruth Ann Gruber Authenticated and [facility]
--- NOTE | 2022-04-12 13:29 | CT_ITS ---
FINAL REPORT TECHNIQUE: Then section axial CT images of the chest were obtained with contrast. Three-D reformatted images were also obtained.This study was performed with techniques to keep radiation doses as low as reasonably achievable (ALARA). Individualized dose reduction techniques using automated exposure control or adjustment of mA and/or kV according to the patient''s size were employed. CLINICAL HISTORY: CP, leg swelling FINDINGS: There is no evidence of pulmonary embolism. There is no evidence of thoracic aortic aneurysm or dissection. There is no evidence of mediastinal or hilar mass or adenopathy. There are bilateral ground-glass opacities favoring edema. Limited images of the upper abdomen demonstrate a small hiatal hernia. IMPRESSION: No evidence of pulmonary embolism. Bilateral ground-glass opacities favoring edema. Reviewed, Interpreted and Dictated by Brayan Hopkins III, MD Transcribed by Robert Fregoso Authenticated and [facility]
[2022-04-12 13:31] VITALS: BP 151/78; PULSE 65; RESP 18; O2SAT 94
--- NOTE | 2022-04-12 13:31 | HMH.EDGENADL ---
Discharge Plan Disposition Patient Disposition: Home, Self-Care Condition: Good Prescriptions Prescriptions: No Action acetaminophen-codeine 300-60 mg tablet 1 tab PO Q6HP PRN (Reason: pain) isosorbide mononitrate 30 mg tablet extended release 24 hr 30 mg PO TID Rx Instructions: verified directions with pharmacy clopidogrel 75 MG tablet 75 mg PO DAILY moexipril 15 MG tablet 15 mg PO BID metoprolol tartrate 50 MG tablet 75 mg PO BID aspirin 81 MG tablet,delayed release (DR/EC) 81 mg PO DAILY clonidine HCl 0.1 MG tablet 0.1 mg PO BID amlodipine 10 MG tablet 10 mg PO DAILY hydrochlorothiazide 25 MG tablet 25 mg PO DAILY furosemide 20 MG tablet 20 mg PO DAILY potassium chloride 10 MEQ tablet extended release 10 meq PO DAILY Referrals Follow up/Referrals: Maico Bull MD [Staff Physician] - See instructions (New fluid backup, mildly elevated BNP.) Provider,MD Vishnu [Primary Care Provider] - See instructions Activity Restrictions/Add. Instructions Additional Instructions/Restrictions: Follow-up with your primary care provider and with cardiology regarding this visit to the emergency department and medicine regarding fluid overload. Talk to them about increasing your furosemide (water pill) to help with your symptoms. If you have any other concerning signs or symptoms, return to the ER for further evaluation. Clinical Impressions Clinical Impression: Mild shortness of breath Discharge ED Provider: Babak Joiner General Adult HPI General Chief complaint: Chest Pain Stated complaint: chest pains Time Seen by Provider: 04/12/22 13:00 Mode of Arrival: Wheelchair Source of Information: Patient and Relative Limitations: No Limitations Description of Symptoms (Recalled from ER Triage Doc. by RN): pt comes in with c/o chest pain that is midsternal and comes and goes. pts daughter reports bilateral leg swelling and headache. symptoms ongoing for 4 days. History of Present Illness HPI narrative: This is a 77-year-old female with history of hypertension, hypothyroidism, diabetes, CKD who is presenting with multiple complaints. Patient states that she has had about 2 weeks of lower extremity swelling that is painful and bilateral. She has been laid up at rest almost all day for the past couple of weeks because she has been tired and having pain in her legs. She is unable to take more than 3-4 steps before pain in her legs gets worse. She has had associated swelling in her legs over the same amount of time. No skin changes, neurologic deficits. Today, about 4 hours prior to arrival, she began having chest pain that was acute, left-sided, did not radiate. Not associated with shortness of breath, diaphoresis, nausea, vomiting, neurologic deficits. Nothing in particular made it better or worse, just persisted, so she came in for further evaluation. Not present on arrival. Related Data Home Medications Medication Instructions Recorded Confirmed clopidogrel 75 mg tablet 75 mg PO DAILY platelet inhibitor 04/16/18 10/08/20 metoprolol tartrate 50 mg tablet 75 mg PO BID Hypertension 04/16/18 10/08/20 moexipril 15 mg tablet 15 mg PO BID Hypertension 04/16/18 10/08/20 acetaminophen 300 mg-codeine 60 mg 1 tab PO Q6HP PRN pain 09/30/19 10/08/20 tablet isosorbide mononitrate 30 mg 30 mg PO TID Hypertension 09/30/19 10/08/20 tablet,extended release 24 hr aspirin 81 mg tablet,delayed 81 mg PO DAILY HEART HEALTH 01/17/20 10/08/20 release amlodipine 10 mg tablet 10 mg PO DAILY High blood pressure 10/08/20 10/08/20 clonidine HCl 0.1 mg tablet 0.1 mg PO BID High blood pressure 10/08/20 10/08/20 furosemide 20 mg tablet 20 mg PO DAILY High blood pressure 10/08/20 10/08/20 hydrochlorothiazide 25 mg tablet 25 mg PO DAILY High blood pressure 10/08/20 10/08/20 potassium chloride 10 mEq 10 meq PO DAILY Supplement 10/08/20 10/08/20 tablet,extended release
--- NOTE | 2022-04-12 13:32 | PC.NURSE ---
notified vascular of doppler on pt.
--- NOTE | 2022-04-12 13:38 | PC.NURSE ---
vascular lab staff at
[2022-04-12 14:00] VITALS: BP 142/63; PULSE 67; O2SAT 97
--- NOTE | 2022-04-12 14:00 | PC.NURSE ---
per vascular lab staff pt is negative for dvt, will notify ROBERT AMEZQUITA
--- NOTE | 2022-04-12 14:07 | PC.NURSE ---
notified ER pt is negative for dvt
[2022-04-12 14:31] VITALS: BP 156/70; PULSE 68; O2SAT 95
[2022-04-12 15:00] VITALS: BP 149/66; PULSE 64; O2SAT 94
[2022-04-12 16:05] LABS: Troponin I 0.03 ng/ml (0.00-0.034)
[2022-04-12 16:45] VITALS: BP 120/66; PULSE 66; RESP 15; TEMP 36.7
== END 2022-04-12 16:46 | disposition home or self-care (01) ==
PROVIDERS: Emergency Provider Emergency Medicine
DX: R06.02 Shortness of breath (principal); R07.89 Other chest pain; E03.9 Hypothyroidism, unspecified; N18.9 Chronic kidney disease, unspecified; E11.22 Type 2 diabetes mellitus with diabetic chronic kidney disease; I12.9 Hypertensive chronic kidney disease with stage 1 through stage 4 chronic kidney disease, or unspecified chronic kidney disease; Z87.891 Personal history of nicotine dependence
CPT/HCPCS: 36415; 71045; 71275; 80048; 83880; 84484; 85025; 93005; 93970; 99285; Q9967

== ENCOUNTER → 2022-11-17 23:17 | Outpatient (CLI) | payer MEDICARE, SELFPAY ==
[2022-11-17 18:44] LABS: Basophils % 0.4 % (0.1-2.0); Eosinophils % 0.5 % (0.1-12.0); Hematocrit 37.6 % (37.0-47.0); Lymphocytes # 1.7 K/mm3 (0.7-4.5); Lymphocytes % 32.5 % (10-50); Mean Corpuscular HGB Conc 31.8 g/dL (31.8-35.4); Mean Corpuscular Hemoglobin 29.7 pg (27.0-31.2); Mean Corpuscular Volume 93.3 fl (81-99); Mean Platelet Volume 9.4 fl (7.4-10.4); Monocytes # 0.5 K/mm3 (0.1-1.0); Monocytes % 8.8 % (1.7-9.3); Neutrophils % 57.9 % (37.0-80.0); Platelet Count 221 K/mm3 (142-424); Red Blood Count 4.04 M/mm3 (4.20-5.40); Red Cell Distribution Width 13.3 % (11.5-17.5); White Blood Count 5.1 K/mm3 (4.8-10.8)
[2022-11-17 18:53] LABS: Alanine Aminotransferase 23 U/L (12-78); Albumin Level 3.9 g/dl (3.5-5.0); Albumin/Globulin Ratio 1.3 (1.1-1.8); Alkaline Phosphatase 65 U/L (38-126); Anion Gap 13.4 mEq/L (5-15); Aspartate Amino Transferase 42 U/L (14-36); Bilirubin,Total 0.4 mg/dl (0.2-1.3); Blood Urea Nitrogen 22 mg/dl (7-17); Calcium 9.1 mg/dl (8.4-10.2); Carbon Dioxide 27 mmol/L (22.0-30.0); Chloride 103 mmol/L (98-107); Chol/HDL Ratio 3.6 (1-3.5); Cholesterol 174 mg/dl (140-200); Estimated Glomerular Filt Rate 60 ml/min (>60); GFR (African American) 73 ML/MIN (>60); Globulin 3.1 g/dL (1.3-3.2); Glucose 89 mg/dl (74-100); HDL Cholesterol 48 mg/dl (40-60); Potassium 4.4 mmoL/L (3.5-5.1); Sodium 139 mmol/L (136-145); Triglycerides 96 mg/dl (30-150); VLDL Cholesterol 19 mg/dL (0-40)
[2022-11-17 19:25] LABS: Thyroid Stimulating Hormone 4.91 uIU/mL (0.465-4.68)
== END ==
PROVIDERS: PCP Family Medicine; Visit Provider Family Medicine
DX: E03.9 Hypothyroidism, unspecified (principal); E11.9 Type 2 diabetes mellitus without complications; M25.471 Effusion, right ankle; M25.472 Effusion, left ankle
CPT/HCPCS: 80053; 80061; 84443; 85025

== ENCOUNTER 2023-03-01 16:38 | Emergency (ER) | payer MEDICARE, SELFPAY ==
[2023-03-01 16:40] VITALS: BP 173/64; PULSE 77; RESP 18; TEMP 36.5; O2SAT 98; BMI 28.8
[2023-03-01 17:36] LABS: Basophils # 0.1 K/mm3 (0-0.2); Basophils % 0.9 % (0.1-2.0); Eosinophils % 0.3 % (0.1-12.0); Hematocrit 41.3 % (37.0-47.0); Lymphocytes # 1.7 K/mm3 (0.7-4.5); Lymphocytes % 30.4 % (10-50); Mean Corpuscular HGB Conc 31.6 g/dL (31.8-35.4); Mean Corpuscular Hemoglobin 29.5 pg (27.0-31.2); Mean Corpuscular Volume 93.4 fl (81-99); Mean Platelet Volume 9.4 fl (7.4-10.4); Monocytes # 0.4 K/mm3 (0.1-1.0); Monocytes % 7.1 % (1.7-9.3); Neutrophils # 3.4 K/mm3 (1.8-7.8); Neutrophils % 61.2 % (37.0-80.0); Platelet Count 229 K/mm3 (142-424); Red Blood Count 4.42 M/mm3 (4.20-5.40); Red Cell Distribution Width 13.9 % (11.5-17.5); White Blood Count 5.5 K/mm3 (4.8-10.8)
[2023-03-01 17:37] LABS: Chloride 101 mmol/L (98-107); Potassium 3.6 mmoL/L (3.5-5.1); Sodium 139 mmol/L (136-145)
[2023-03-01 17:39] LABS: Blood Urea Nitrogen 27 mg/dl (7-17); Creatinine Clearance Estimated 44 mL/min (50-200); Estimated Glomerular Filt Rate 43 ml/min (>60); GFR (African American) 52 ML/MIN (>60)
[2023-03-01 17:40] LABS: Alanine Aminotransferase 23 U/L (12-78); Albumin Level 4.2 g/dl (3.5-5.0); Albumin/Globulin Ratio 1.2 (1.1-1.8); Alkaline Phosphatase 65 U/L (38-126); Anion Gap 9.6 mEq/L (5-15); Aspartate Amino Transferase 36 U/L (14-36); Bilirubin,Total 0.5 mg/dl (0.2-1.3); Carbon Dioxide 32 mmol/L (22.0-30.0); Globulin 3.6 g/dL (1.3-3.2); Glucose 125 mg/dl (74-100); Total Protein,Serum 7.8 g/dl (6.3-8.2)
--- NOTE | 2023-03-01 18:07 | HMH.EDGENADL ---
Discharge Plan Disposition Patient Disposition: Home, Self-Care Condition: Good Chief Complaint: Recheck/Abnormal Lab/Rx Prescriptions Prescriptions: No Action acetaminophen-codeine 300-60 mg tablet 1 tab PO Q6HP PRN (Reason: pain) isosorbide mononitrate 30 mg tablet extended release 24 hr 30 mg PO TID Rx Instructions: verified directions with pharmacy erythromycin 5 mg/gram (0.5 %) ointment 1 applic ophthalmic (eye) DAILY Qty: 3.5 0RF amoxicillin-pot clavulanate [Augmentin] 500-125 mg tablet 1 tab PO BID Qty: 14 0RF tramadol 50 mg tablet 50 mg PO Q8H PRN (Reason: pain) Qty: 90 0RF levothyroxine [Synthroid] 25 mcg tablet 25 mcg PO DAILY Qty: 90 3RF clopidogrel 75 MG tablet 75 mg PO DAILY moexipril 15 MG tablet 15 mg PO BID metoprolol tartrate 50 MG tablet 75 mg PO BID aspirin 81 MG tablet,delayed release (DR/EC) 81 mg PO DAILY clonidine HCl 0.1 MG tablet 0.1 mg PO BID amlodipine 10 MG tablet 10 mg PO DAILY hydrochlorothiazide 25 MG tablet 25 mg PO DAILY furosemide 20 MG tablet 20 mg PO DAILY potassium chloride 10 MEQ tablet extended release 10 meq PO DAILY Referrals Follow up/Referrals: Ciro Campos MD [Primary Care Provider] - See instructions Activity Restrictions/Add. Instructions Additional Instructions/Restrictions: Take the cephalexin prescribed to you last night. Do not take apixaban or Bactrim unless otherwise recommended by your primary care provider. See your primary care provider in the next week to have recheck. Clinical Impressions Clinical Impression: Cellulitis of left leg Instructions Patient Instructions: Cellulitis Discharge ED Provider: Suri Dukes General Adult HPI General Chief complaint: Recheck/Abnormal Lab/Rx Stated complaint: sent by Dr. Campos + d dimer Time Seen by Provider: 03/01/23 17:06 Mode of Arrival: Ambulatory Source of Information: Patient and Relative Limitations: No Limitations Description of Symptoms (Recalled from ER Triage Doc. by RN): patient reports she was seen last night at [facility] in [place] for leg pain and swelling where she was diagnosed with cellulitis and elevated D-dimer. Was discharged with instructions to follow up with PCP. Daughter states she called PCP and was told to come to ER for evaluation. History of Present Illness HPI narrative: Patient is a 77-year-old female with previous medical history of coronary artery disease, type 2 diabetes, presenting with 2 weeks of gradually progressive bilateral lower leg swelling, worse on the left. Over the past 2 weeks patient has had gradually progressing lower extremity swelling. The left is worse and is associated with erythema. She was seen at outside hospital yesterday and was found to have a positive D-dimer which they were advised may be due to a blood clot or due to an infection so patient was advised to start Eliquis, cephalexin, Bactrim, and to have an outpatient ultrasound to determine if Eliquis should be continued. She has not filled his prescriptions yet. patient presents today requesting ultrasound and follow-up. Related Data Home Medications Medication Instructions Recorded Confirmed clopidogrel 75 mg tablet 75 mg PO DAILY platelet inhibitor 04/16/18 11/17/22 metoprolol tartrate 50 mg tablet 75 mg PO BID Hypertension 04/16/18 11/17/22 moexipril 15 mg tablet 15 mg PO BID Hypertension 04/16/18 11/17/22 acetaminophen 300 mg-codeine 60 mg 1 tab PO Q6HP PRN pain 09/30/19 11/17/22 tablet isosorbide mononitrate 30 mg 30 mg PO TID Hypertension 09/30/19 11/17/22 tablet,extended release 24 hr aspirin 81 mg tablet,delayed 81 mg PO DAILY HEART HEALTH 01/17/20 11/17/22 release amlodipine 10 mg tablet 10 mg PO DAILY High blood pressure 10/08/20 11/17/22 clonidine HCl 0.1 mg tablet 0.1 mg PO BID High blood pressure 10/08/20 11/17/22 furosemide 20 mg tablet 20 mg PO DAILY High blood pressure 10/08/20 11/17/22 hydrochlorothiazide 25 mg tablet 25 mg PO DAILY High blood pressure 10/08/20 11/17/22 potassium chloride 10 mEq 10 meq PO DAILY Supplement 10/08/20 11/17/22 tablet,extended release Previous Rx's Medication Instructions Recorded erythromycin 5 mg/gram (0.5 %) eye 1 applic ophthalmic (eye) DAILY 11/17/22 ointment #3.5 grams amoxicillin 500 mg-potassium 1 tab PO BID #14 tabs 12/26/22 clavulanate 125 mg tablet (Augmentin) tramadol 50 mg tablet 50 mg PO Q8H PRN pain #90 tabs 12/26/22 levothyroxine 25 mcg tablet 25 mcg PO DAILY #90 tabs 12/28/22 (Synthroid) Allergies Allergy/AdvReac Type Severity Reaction Status Date / Time morphine Allergy Intermediate Verified 11/17/22 15:37 phenobarbital Allergy Intermediate Verified 11/17/22 15:37 PFS PFS Disclaimer: The information contained in this section may have been updated after the patient was seen, as this information can be updated by other users. Social History Smoking Status: Never smoker alcohol intake: never substance use type: denies use current occupational status: retired Travel in the last 8 weeks: None household members: none caffeine: Yes ROS Obtained: Yes All systems reviewed & no additional complaints except as documented Physical Exam General General appearance: alert and in no apparent distress Head Head exam: atraumatic, normocephalic and normal inspection Eye Eye exam: Present normal appearance, PERRL and EOMI ENT ENT exam: Present normal exam, normal oropharynx, mucous membranes moist, TM's normal bilaterally and normal external ear exam Neck Neck exam: Present normal inspection, full ROM and trachea midline; Absent meningismus or lymphadenopathy Chest Chest inspection: Present normal inspection and symmetric chest wall rise; Absent tenderness Respiratory Respiratory exam: Present normal lung sounds bilaterally; Absent respiratory distress Cardiovascular Cardiovascular exam: Present regular rate and normal rhythm; Absent JVD Abdominal Exam Abdominal exam: Present soft and normal bowel sounds; Absent distention, tenderness or guarding Extremities Exam Extremities exam: Present full ROM, normal capillary refill, calf tenderness and other (Bilateral calf and ankle swelling, 2+ edema pitting bilaterally. Left anterior ru[place] is moderately erythematous and more tender than right.) Back Exam Back exam: Present normal inspection; Absent tenderness Neurological Exam Neurological exam: Present alert and oriented X3 Psychiatric Psychiatric exam: Present normal affect and normal mood Skin Skin exam: Present warm, dry, intact and normal color Lymphatic Lymphatic Findings: no adenopathy Medical Decision Making Medical Records Medical records reviewed: Yes I reviewed the patient's medical records. MR Sasha: Reviewed outside hospital after visit summary from yesterday that indicated patient had a D-dimer but no ultrasound so was prescribed apixaban, cephalexin, Bactrim. Deon Inquiry Pt receiving controlled substance: No Deon was queried for this patient: No Vital Signs: 03/01/23 16:40 Temperature 97.7 F Temperature Source Oral Pulse Rate [Right] 77 Respiratory Rate 18 Blood Pressure [Right Arm] 173/64 H Blood Pressure Mean [Right Arm] 100 Blood Pressure Source [Right Arm] Automatic Cuff 02 Sat by Pulse Oximetry 98 Oxygen Delivery Method Room Air Lab Data Lab Results 03/01/23 17:15: WBC 5.5, RBC 4.42, Hgb 13.0, Hct 41.3, MCV 93.4, MCH 29.5, MCHC 31.6 L, RDW 13.9, Plt Count 229, MPV 9.4, Neut % (Auto) 61.2, Lymph % (Auto) 30.4, [place] % (Auto) 7.1, Eos % (Auto) 0.3, Baso % (Auto) 0.9, Neut # (Auto) 3.4, Lymph # (Auto) 1.7, [place] # (Auto) 0.4, Eos # (Auto) 0.0, Baso # (Auto) 0.1, Sodium 139, Potassium 3.6, Chloride 101, Carbon Dioxide 32 H, Anion Gap 9.6, BUN 27 H, Creatinine 1.20 H, Estimated Creat Clear 44, Estimated GFR 43 L, Est GFR ( Amer) 52 L, Glucose 125 H, Calcium 9.0, Total Bilirubin 0.5, AST 36, ALT 23, Alkaline Phosphatase 65, Total Protein 7.8, Albumin 4.2, Globulin 3.6 H, Albumin/Globulin Ratio 1.2 03/01/23 17:15 03/01/23 17:15 Orders (Tests/Meds): ORDERS Category Date Time Status POCUS Point of Care (ER Only) Stat Exams 03/01/23 17:26 Taken CBC [Complete Blood Count Auto Diff] Stat Lab 03/01/23 17:15 Completed CMP [Comprehensive Metabolic Panel] Stat Lab 03/01/23 17:15 Completed Medical Decision Narrative: 77-year-old female with presentation concerning for DVT, cellulitis, venous insufficiency. Very low concern at this time for abscess, NSTI, ischemia, or other causes. For this reason perform bedside ultrasound to evaluate left leg for DVT and deep veins of the left leg were well-visualized and easily compressible. I independently performed, interpreted the ultrasound and images were saved to the ultrasound database. Also obtained labs including CBC and CMP which I independently reviewed and interpreted and these showed no significant abnormalities, no leukocytosis or other concerns. Discussed this with patient and advised her to take cephalexin but not apixaban and not Bactrim and to follow-up closely with her PCP. Also provided instructions that it is possible this is not infectious and is rather due to venous insufficiency so gave instructions for elevating extremities and following closely with PCP for this. Discharge stable. Procedures Limited Ultrasound Indication:: Lower extremity swelling, left greater than right, left lower leg redness Views:: Visualized deep veins of the left lower extremity Findings:: Easily compressible through the length of the deep veins of the left leg. [place]bl[place] concerning for cellulitis versus soft tissue edema from vascular insufficiency. No abscess. Interpretation:: No DVT. Soft tissue edema consistent with cellulitis versus venous insufficiency. Critical Care Critical Care Time Critical Care Time: No
[2023-03-01 18:27] VITALS: BP 145/56; PULSE 74; RESP 19; TEMP 36.7
== END 2023-03-01 18:27 | disposition home or self-care (01) ==
PROVIDERS: Emergency Provider Emergency Medicine; PCP Family Medicine
DX: L03.116 Cellulitis of left lower limb (principal); I25.10 Atherosclerotic heart disease of native coronary artery without angina pectoris; E11.9 Type 2 diabetes mellitus without complications
CPT/HCPCS: 80053; 85025; 99284

== ENCOUNTER 2023-04-28 16:17 | Emergency (ER) | payer MEDICARE, SELFPAY ==
--- NOTE | 2023-04-28 16:41 | ED_ITS ---
Discharge Plan Disposition Patient Disposition: Home, Self-Care Prescriptions Prescriptions: New cephalexin 500 mg capsule 1,000 mg PO BID 7 Days Qty: 28 0RF No Action acetaminophen-codeine 300-60 mg tablet 1 tab PO Q6HP PRN (Reason: pain) isosorbide mononitrate 30 mg tablet extended release 24 hr 30 mg PO TID Rx Instructions: verified directions with pharmacy amoxicillin-pot clavulanate 875-125 mg tablet 1 tab PO BID Qty: 20 0RF levothyroxine [Synthroid] 25 mcg tablet 25 mcg PO DAILY Qty: 90 3RF clopidogrel 75 mg tablet 75 mg PO DAILY Qty: 90 3RF tramadol 50 mg tablet 50 mg PO Q8H PRN (Reason: pain) Qty: 90 0RF aspirin 81 mg tablet,delayed release (DR/EC) 81 mg PO DAILY Qty: 100 10RF hydrochlorothiazide 25 mg tablet 25 mg PO DAILY Qty: 90 3RF metoprolol tartrate 50 MG tablet 75 mg PO BID clonidine HCl 0.1 MG tablet 0.1 mg PO BID amlodipine 10 MG tablet 10 mg PO DAILY furosemide 20 MG tablet 20 mg PO DAILY Referrals Follow up/Referrals: Ciro Campos MD [Primary Care Provider] - See instructions Activity Restrictions/Add. Instructions Additional Instructions/Restrictions: Call your family doctor to establish care for this visit to the emergency department and schedule follow-up within 48 hours to ensure improvement. If you have any worsening of your condition or any other concerning signs or symptoms, return to the emergency department or your primary care doctor for further evaluation. Take Tylenol 1000 Mg Every 6 Hours (4 Times Daily) and Ibuprofen 400 Mg Every 6 Hours (4 Times Daily) As Needed with Food and Water to Prevent GI Upset and Kidney Damage. Keflex twice daily for 7 days. Clinical Impressions Clinical Impression: Cellulitis of head or scalp Instructions Patient Instructions: DI for Skin Abscess Discharge ED Provider: Babak Joiner General Adult HPI General Chief complaint: Skin/Abscess/Foreign Body Stated complaint: Knot on back of head,head pain Time Seen by Provider: 04/28/23 16:19 History of Present Illness HPI narrative: 78-year-old female history of hypertension, hyperlipidemia, CAD, diabetes, left ear pain and dizziness after ENT procedure in the remote past presenting with swelling on the posterior aspect of her head. She noticed it today, 04/27. She woke up, her head felt sore. She felt a lump that was soft on the top of her scalp. She asked her daughter to examine it, daughter states that it was red, tender, so brought her to the emergency department because she was fearful that her mother may in her sleep due to infection. Patient had 1 episode of emesis yesterday, no objective fevers or chills, diarrhea, abdominal pain, cough, neck pain, vision changes,, or any other concerns. Related Data Home Medications Medication Instructions Recorded Confirmed metoprolol tartrate 50 mg tablet 75 mg PO BID Hypertension 04/16/18 03/22/23 acetaminophen 300 mg-codeine 60 mg 1 tab PO Q6HP PRN pain 09/30/19 03/22/23 tablet isosorbide mononitrate 30 mg 30 mg PO TID Hypertension 09/30/19 03/22/23 tablet,extended release 24 hr amlodipine 10 mg tablet 10 mg PO DAILY High blood pressure 10/08/20 03/22/23 clonidine HCl 0.1 mg tablet 0.1 mg PO BID High blood pressure 10/08/20 03/22/23 furosemide 20 mg tablet 20 mg PO DAILY High blood pressure 10/08/20 03/22/23 Previous Rx's Medication Instructions Recorded amoxicillin 875 mg-potassium 1 tab PO BID #20 tabs 03/22/23 clavulanate 125 mg tablet aspirin 81 mg tablet,delayed 81 mg PO DAILY [facility] #100 03/22/23 release tabs clopidogrel 75 mg tablet 75 mg PO DAILY platelet inhibitor 03/22/23 #90 tabs hydrochlorothiazide 25 mg tablet 25 mg PO DAILY High blood pressure 03/22/23 #90 tabs levothyroxine 25 mcg tablet 25 mcg PO DAILY #90 tabs 03/22/23 (Synthroid) tramadol 50 mg tablet 50 mg PO Q8H PRN pain #90 tabs 03/22/23 cephalexin 500 mg capsule 1,000 mg (2 x 500 mg) PO BID 7 04/28/23 days #28 caps Allergies Allergy/AdvReac Type Severity Reaction Status Date / Time morphine Allergy Intermediate Verified 04/28/23 16:53 phenobarbital Allergy Intermediate Verified 04/28/23 16:53 [facility] Disclaimer: The information contained in this section may have been updated after the patient was seen, as this information can be updated by other users. Medical History (Updated 04/28/23 @ 17:08 by Suri Calderon RN) CAD (coronary artery disease), [place] coronary artery Memory deficit Type 2 diabetes mellitus Hypertension Hypothyroidism (acquired) Rhabdomyolysis Neck pain Renal failure Sciatic leg pain Abdominal pain Surgical History (Updated 03/22/23 @ 11:59 by CARLOS Jefferson) Hx of right coronary artery stent placement Family History (Updated 03/22/23 @ 11:59 by CARLOS Jefferson) Other Cancer Diabetes Kidney disease Social History Smoking Status: Never smoker alcohol intake: never substance use type: denies use current occupational status: retired Travel in the last 8 weeks: None household members: none caffeine: Yes ROS Obtained: Yes All systems reviewed & no additional complaints except as documented Physical Exam General General appearance: alert and in no apparent distress Head Head exam: atraumatic, normocephalic and other (Soft, mobile, 1 cm mildly raised lump on parieto-occipital scalp on the right side. Does not appear to be significantly tender. No lymphadenopathy in the neck.) Eye Eye exam: Present normal appearance, PERRL and EOMI ENT ENT exam: Present mucous membranes moist Neck Neck exam: Present normal inspection, full ROM and trachea midline Respiratory Respiratory exam: Absent respiratory distress, wheezes, stridor, accessory muscle use or prolonged expiratory phase Cardiovascular Cardiovascular exam: Present normal rhythm Abdominal Exam Abdominal exam: Present soft; Absent distention, tenderness, guarding, rebound or rigidity Extremities Exam Extremities exam: Absent edema Neurological Exam Neurological exam: Present alert, oriented X3, CN II-XII intact and normal gait; Absent motor sensory deficit Skin Skin exam: Present warm and dry; Absent diaphoresis or erythema Medical Decision Making Medical Records Medical records reviewed: Yes I reviewed the patient's medical records. Deon Inquiry Pt receiving controlled substance: No Deon was queried for this patient: No Vital Signs: 04/28/23 16:44 Temperature 98.4 F Temperature Source Oral Pulse Rate [Left] 77 Respiratory Rate 16 Blood Pressure [Right Arm] 142/108 H Blood Pressure Mean [Right Arm] 119 02 Sat by Pulse Oximetry 96 Oxygen Delivery Method Room Air Orders (Tests/Meds): ORDERS Category Date Time Status POCUS Point of Care (ER Only) Stat Exams 04/28/23 16:43 Ordered Medical Decision Narrative: 78-year-old female history of hypertension, hyperlipidemia, CAD, diabetes, left ear pain and dizziness after ENT procedure in the remote past presenting with swelling on the posterior aspect of her head. She noticed it today, 04/27. She woke up, her head felt sore. She felt a lump that was soft on the top of her scalp. She asked her daughter to examine it, daughter states that it was red, tender, so brought her to the emergency department because she was fearful that her mother may in her sleep due to infection. Patient had 1 episode of emesis yesterday, no objective fevers or chills, diarrhea, abdominal pain, cough, neck pain, vision changes,, or any other concerns. History was obtained via conversation with patient and daughter. On arrival, patient hemodynamically stable, alert, [oriented x4, ][appropriate, ]GCS [15], moving all extremities spontaneously, pupils equal and reactive to light. Full physical exam performed and significant for well-appearing woman in no acute distress. She does have a mildly tender, mobile, slightly raised on parieto-occipital scalp on the right side. Basically on the crown of her head. No lymphadenopathy of the neck. Patient ranging neck normally. Neurologically intact. Differential includes cellulitis, abscess, hematoma, malignancy, among others. Bedside ultrasound with subcutaneous edema with tenderness at ultrasound site concerning for cellulitis. Because of this, patient deemed appropriate for outpatient management for cellulitis less than 2 cm of the scalp. Because patient at baseline without signs or symptoms of clinical decompensation, deemed appropriate for discharge. Results were relayed to patient who voiced understanding and were agreeable to outpatient management and follow up. At the time of discharge the patient was hemodynamically stable, tolerating PO, and mobilizing appropriately. They requested message to be sent to their primary ca re provider, Dr. Campos, to have follow-up CT scans done. She states that she was scheduled to have 1 in the past and was unable to make it due to personal reasons. Procedures Limited Ultrasound Indication:: Limited soft tissue ultrasound Indication: Scalp swelling Identified structures: Location: Parieto-occipital scalp Findings: Subcutaneous edema No abscess Impression: Cellulitis of scalp Images were saved to permanent archive The study was technically adequate Soft Tissue CPT Codes: CPT Neck: 68143-57 CPT Upper extremity: 38534-54 CPT Axilla: 58333-63 CPT Chest wall: 09901-06 CPT Breast: 67927-43-BW/LT (complete), 44147-15-ZY/LT (limited), CPT Upper Back: 07002-39 CPT Lower Back: 04348-35 CPT Abdominal Wall: 31914-64 CPT Pelvic Wall: 32160-60 CPT Lower Extremity: 62185-97 CPT Other Soft Tissue: 44154-52 This study was performed by me, and I personally interpreted all images/videos. Based on my clinical judgement, these images were adequate and did not necessitate further imaging. Critical Care Critical Care Time Critical Care Time: No
[2023-04-28 16:44] VITALS: BP 142/108; PULSE 77; RESP 16; TEMP 36.9; O2SAT 96; BMI 30.2
--- NOTE | 2023-04-28 16:57 | PC.NURSE ---
DR FULLER AT BEDSIDE FOR US
[2023-04-28 17:14] VITALS: BP 199/75; PULSE 81; RESP 18; TEMP 36.7
== END 2023-04-28 17:14 | disposition home or self-care (01) ==
PROVIDERS: Emergency Provider Emergency Medicine; PCP Family Medicine
DX: L03.811 Cellulitis of head [any part, except face] (principal); H92.02 Otalgia, left ear; R42 Dizziness and giddiness; E11.9 Type 2 diabetes mellitus without complications; I11.9 Hypertensive heart disease without heart failure; I25.10 Atherosclerotic heart disease of native coronary artery without angina pectoris; E03.9 Hypothyroidism, unspecified; Z95.5 Presence of coronary angioplasty implant and graft
CPT/HCPCS: 99284

== ENCOUNTER 2023-05-30 09:17 | Outpatient (CLI) | payer MEDICARE, SELFPAY ==
--- NOTE | 2023-05-30 09:18 | CT_ITS ---
FINAL REPORT CLINICAL HISTORY: memory/vision changes COMPARISON: 01/15/2020 FINDINGS: CT HEAD WITH AND WITHOUT CONTRAST: Mild global atrophy is identified. There are low densities in the periventricular and subcortical white matter, that in this age group likely represent mild changes of chronic ischemic/gliotic microvascular disease. There is a small chronic right periventricular lacunar infarct, stable. No evidence of extra-axial fluid collections or mass effect is seen. No focal masses or areas of hemorrhage are present. No focal enhancement is identified. Overall given differences in technique no significant changes noted since the prior CT of 2019. IMPRESSION: Mild global atrophy and changes of mild chronic ischemic/gliotic microvascular disease. No acute intracranial abnormality is identified. Reviewed, Interpreted and Dictated by Brayan Hopkins III, MD Transcribed by Rosalba Anaya Authenticated and [facility]
[2023-05-30 09:44] LABS: Blood Urea Nitrogen 27 mg/dl (7-17); Estimated Glomerular Filt Rate 69 ml/min (>60); GFR (African American) 84 ML/MIN (>60)
[2023-05-30] MEDS: IOHEXOL-240 100ML BOTTLE 100 ML IV (10:32)
== END 2023-05-30 23:59 ==
LOC: RAD 09:18
PROVIDERS: PCP Family Medicine; Visit Provider Family Medicine
DX: H53.40 Unspecified visual field defects (principal); R41.3 Other amnesia
CPT/HCPCS: 36415; 70470; 82565; 84520; Q9966

== ENCOUNTER 2023-07-28 14:42 | Observation (INO) | payer MEDICARE, SELFPAY ==
[2023-07-28 14:45] VITALS: BP 174/111; PULSE 77; RESP 13; TEMP 36.9; O2SAT 97; BMI 24.9
--- NOTE | 2023-07-28 14:55 | ECG_ITS ---
APPROVED REPORT Exam: Resting ECG HR:72 bpm ECG Measurements Heart Rate 72 AXES MN 174 P -27 QRSd 93 QRS -9 QT 388 T -8 QTc 413 Conclusion SINUS RHYTHM WITH OCCASIONAL SUPRAVENTRICULAR PREMATURE COMPLEXES MODERATE VOLTAGE CRITERIA FOR LVH, CONSIDER NORMAL VARIANT [MEETS CRITERIA IN ONE OF: R(aVL), S(V1), R(V5), R(V5/V6)+S(V1)] ABNORMAL ECG Electronically signed by : SARAHY MIRANDA, 07/28/2023 22:54:06
[2023-07-28 15:01] VITALS: BP 169/79; PULSE 73; O2SAT 97
--- NOTE | 2023-07-28 15:03 | CT_ITS ---
PROCEDURE INFORMATION: Exam: CT Cervical Spine Without Contrast Exam date and time: 07/28/2023 3:53 PM Age: 78 years old Clinical indication: Injury or trauma; Fall; Blunt trauma; Additional info: Fall 1 wk ago with headache TECHNIQUE: Imaging protocol: Computed tomography of the cervical spine without contrast. Radiation optimization: All CT scans at this facility use at least one of these dose optimization techniques: automated exposure control; mA and/or kV adjustment per patient size (includes targeted exams where dose is matched to clinical indication); or iterative reconstruction. COMPARISON: CT CERVICAL SPINE WO CON 01/15/2020 6:01 PM FINDINGS: Bones: No evidence of acute fracture or malalignment. Lungs: No acute abnormality or suspicious mass lesion in the visualized lung apices. Soft tissues: Unremarkable. IMPRESSION: No evidence of acute osseous abnormality in the cervical spine.
--- NOTE | 2023-07-28 15:03 | CT_ITS ---
PROCEDURE INFORMATION: Exam: CT Head Without Contrast Exam date and time: 07/28/2023 3:53 PM Age: 78 years old Clinical indication: Injury or trauma; Fall; Blunt trauma (contusions or hematomas); Additional info: Fall 1 wk ago with headache TECHNIQUE: Imaging protocol: Computed tomography of the head without contrast. Radiation optimization: All CT scans at this facility use at least one of these dose optimization techniques: automated exposure control; mA and/or kV adjustment per patient size (includes targeted exams where dose is matched to clinical indication); or iterative reconstruction. COMPARISON: 1. CT HEAD/BRAIN WO/W CON 05/30/2023 10:[address] HEAD/BRAIN WO CON 01/15/2020 5:[address] CERVICAL SPINE WO CON 07/28/2023 3:53 PM FINDINGS: Brain: The brain parenchyma appears unremarkable, with no signs of acute intracranial hemorrhage or significant mass effect. There is hypodensity in the subcortical and periventricular white matter which is technically nonspecific but most often related to chronic microvascular disease. There is an old right basal ganglia infarct. Cerebral ventricles: Mild ventricular enlargement consistent with age-related cerebral atrophy is noted. Paranasal sinuses: Paranasal sinuses show age-appropriate mucosal thickening. Mastoid air cells: Visualized mastoid air cells are well aerated. Bones: There are no skull fractures or bony lesions. Soft tissues: Unremarkable. IMPRESSION: Presumably age-related and chronic changes without acute intracranial abnormality.
--- NOTE | 2023-07-28 15:03 | XR_ITS ---
PROCEDURE INFORMATION: Exam: XR Right Shoulder Exam date and time: 07/28/2023 3:55 PM Age: 78 years old Clinical indication: Injury or trauma; Fall; Blunt trauma (contusions or hematomas); Shoulder; Right; Additional info: Fall, R shoulder pain TECHNIQUE: Imaging protocol: Radiologic exam of the right shoulder. Views: 2 or more views. COMPARISON: CR XR HUMERUS RT 07/28/2023 3:55 PM FINDINGS: Bones/joints: No evidence of acute fracture or malalignment. Soft tissues: Unremarkable. IMPRESSION: No evidence of acute osseous abnormality in the right shoulder.
--- NOTE | 2023-07-28 15:03 | XR_ITS ---
PROCEDURE INFORMATION: Exam: XR Chest Exam date and time: 07/28/2023 3:55 PM Age: 78 years old Clinical indication: Fever; Additional info: Fall and R shoulder pain, fever TECHNIQUE: Imaging protocol: Radiologic exam of the chest. Views: 1 view. COMPARISON: CT ANGIO CHEST PE PROTOCOL 04/12/2022 2:15 PM FINDINGS: Lungs: Subsegmental atelectasis/scarring in the left lung base. No evidence of acute airspace infiltrate. No pulmonary edema. Pleural spaces: No significant pleural effusion. No pneumothorax. Heart/Mediastinum: Cardiomediastinal silouhette is within normal limits. Bones/joints: No evidence of acute osseous abnormality. IMPRESSION: No acute findings.
--- NOTE | 2023-07-28 15:05 | XR_ITS ---
PROCEDURE INFORMATION: Exam: XR Right Humerus Exam date and time: 07/28/2023 3:55 PM Age: 78 years old Clinical indication: Injury or trauma; Fall; Blunt trauma (contusions or hematomas); Arm, upper; Right; Additional info: Fall w pain TECHNIQUE: Imaging protocol: Radiologic exam of the right humerus. Views: 2 or more views. COMPARISON: CR XR SHOULDER RT MIN 2V 07/28/2023 3:55 PM FINDINGS: Bones/joints: No evidence of acute fracture or malalignment. Soft tissues: Unremarkable. IMPRESSION: No evidence of acute osseous abnormality in the right humerus.
[2023-07-28 15:16] LABS: Chloride 102 mmol/L (98-107); Potassium 3.6 mmoL/L (3.5-5.1); Sodium 139 mmol/L (136-145)
--- NOTE | 2023-07-28 15:18 | CT_ITS ---
PROCEDURE INFORMATION: Exam: CT Abdomen And Pelvis With Contrast Exam date and time: 07/28/2023 3:57 PM Age: 78 years old Clinical indication: Abdominal pain; Additional info: Fever, abd pain TECHNIQUE: Imaging protocol: Computed tomography of the abdomen and pelvis with contrast. Radiation optimization: All CT scans at this facility use at least one of these dose optimization techniques: automated exposure control; mA and/or kV adjustment per patient size (includes targeted exams where dose is matched to clinical indication); or iterative reconstruction. Contrast material: ISOVUE; Contrast volume: 75 ml; Contrast route: IV; COMPARISON: CT ABDOMEN PELVIS WO CON 10/07/2020 8:11 PM FINDINGS: Diaphragm: Small hiatal hernia, unchanged. Liver: Unremarkable. Gallbladder and bile ducts: Slightly prominent gallbladder wall with subtle pericholecystic fat stranding. No evidence of cholelithiasis, noting that ultrasound is more sensitive in detecting noncalcified gallstones. No intra- or extra-hepatic biliary ductal dilatation. Pancreas: No evidence of acute pancreatitis. No pancreatic ductal dilation. Spleen: Unremarkable. Adrenal glands: Unremarkable. Kidneys and ureters: Non-specific bilateral symmetric perinephric fat stranding, not significantly changed from prior exam. Stable right simple renal cyst. No renal or ureteral stones. No hydronephrosis. Stomach and bowel: Multiple duodenal diverticula, not significantly changed from 10/07/2020 CT. No evidence of duodenal diverticulitis. Colonic diverticulosis without evidence of acute diverticulitis. Appendix: Appendix is visualized and is normal. Intraperitoneal space: No free fluid. No pneumoperitoneum. Vasculature: Questionable filling defect in a right lower lobe pulmonary artery, possibly artifactual. Moderate amount of calcific arterial atherosclerosis throughout the aorta. No abdominal aortic aneurysm. Lymph nodes: Unremarkable. Urinary bladder: Unremarkable. Reproductive: Unremarkable. Bones/joints: Multi-level bridging or beaked disc osteophytes in the thoracolumbar spine compatible with diffuse idiopathic skeletal hyperostosis (DISH). No evidence of acute osseous abnormality. Soft tissues: No acute pathology. IMPRESSION: 1. Slightly prominent gallbladder wall with subtle pericholecystic fat stranding. Findings appear suspicious for early or mild acute cholecystitis, although not definitively diagnostic. Please correlate with patient's symptoms and/or physical exam. No evidence of cholelithiasis, noting that ultrasound is more sensitive in detecting noncalcified gallstones. 2. Questionable filling defect in a right lower lobe pulmonary artery, possibly artifactual. If there is clinical suspicion for pulmonary embolism, recommend better evaluation with chest CTA. 3. Colonic diverticulosis without evidence of acute diverticulitis. 4. Diffuse idiopathic skeletal hyperostosis (DISH). Additional chronic ancillary findings detailed above are unchanged from prior exam.
[2023-07-28 15:19] LABS: Coronavirus 19, PCR Not Detected (NotDetected); Influenza A, PCR Not Detected (NotDetected); Influenza B, PCR Not Detected (NotDetected)
[2023-07-28 15:19] LABS: Microscopic, Urine URINE MICROSCOPIC (MICROSCOPIC)
[2023-07-28 15:19] LABS: Alanine Aminotransferase 18 U/L (12-78); Albumin/Globulin Ratio 1.1 (1.1-1.8); Alkaline Phosphatase 65 U/L (38-126); Anion Gap 11.6 mEq/L (5-15); Aspartate Amino Transferase 30 U/L (14-36); Bilirubin,Total 0.6 mg/dl (0.2-1.3); Blood Urea Nitrogen 31 mg/dl (7-17); Calcium 9.2 mg/dl (8.4-10.2); Carbon Dioxide 29 mmol/L (22.0-30.0); Creatinine Clearance Estimated 39 mL/min (50-200); Estimated Glomerular Filt Rate 43 ml/min (>60); GFR (African American) 52 ML/MIN (>60); Globulin 3.6 g/dL (1.3-3.2); Glucose 97 mg/dl (74-100); Total Protein,Serum 7.6 g/dl (6.3-8.2)
[2023-07-28] MEDS: KETOROLAC 30MG/ML VIAL 15 MG IV (15:19)
[2023-07-28] MEDS: ACETAMINOPHEN 1,000MG/100ML VIAL 1000 MG IV (15:19)
[2023-07-28 15:21] LABS: Appearance,Urine CLEAR (Clear); Bilirubin,Urine Negative (Negative); Blood, Urine Negative (Negative); Color,Urine ORANGE (Yellow); Glucose,Urine (UA) Negative (Negative); Ketones,Urine Negative (Negative); Leukocyte Esterase,Urine TRACE (Negative); Nitrate,Urine Negative (Negative); Protein,Urine Negative (Negative)
[2023-07-28 15:25] LABS: Basophils # 0.1 K/mm3 (0-0.2); Basophils % 0.8 % (0.1-2.0); Eosinophils # 0.1 K/mm3 (0.0-0.4); Eosinophils % 0.6 % (0.1-12.0); Hematocrit 36.9 % (37.0-47.0); Lymphocytes # 2.1 K/mm3 (0.7-4.5); Lymphocytes % 25.7 % (10-50); Mean Corpuscular HGB Conc 32.5 g/dL (31.8-35.4); Mean Corpuscular Hemoglobin 30.1 pg (27.0-31.2); Mean Corpuscular Volume 92.8 fl (81-99); Mean Platelet Volume 9.2 fl (7.4-10.4); Monocytes # 0.7 K/mm3 (0.1-1.0); Neutrophils # 5.2 K/mm3 (1.8-7.8); Platelet Count 192 K/mm3 (142-424); Red Blood Count 3.97 M/mm3 (4.20-5.40); Red Cell Distribution Width 14.3 % (11.5-17.5); White Blood Count 8.1 K/mm3 (4.8-10.8)
--- NOTE | 2023-07-28 15:27 | HMH.EDGENADL ---
Discharge Plan Disposition Patient Disposition: Admitted Condition: Good Clinical Impressions Clinical Impression: Cholecystitis, Acute pain of right shoulder Discharge ED Provider: Tayler Dc General Adult HPI General Chief complaint: PAIN Stated complaint: fever, right shoulder pain, unbalanced, h/a Time Seen by Provider: 07/28/23 14:58 Mode of Arrival: Wheelchair Source of Information: Patient and Relative Limitations: No Limitations Description of Symptoms (Recalled from ER Triage Doc. by RN): pt presents to ED with c/o not feeling well . pt reports that she has been feeling unwell for the past few weeks. pt reports generalized weakness and cough. pt reports a fall 1 week ago, and right shoulder pain. History of Present Illness HPI narrative: This patient is an 78-year-old female with a history of hypertension, hyperlipidemia, diabetes, CAD status post stenting, and hypothyroidism presenting to the emergency department for evaluation with concern for multiple complaints. Patient states that she overall just does not feel well. She states that she been feeling bad for couple weeks with general weakness. She also notes that she has had a headache and feels like there is a buzzing in her head. She denies any other specific concerns or complaints initially, but daughter states that she has had some abdominal pain. Her daughter also recalls a fall a week ago, and since then the patient is been having right shoulder pain. She did hit her head during the fall, but no loss of consciousness noted, and she does not take any blood thinners. She was not evaluated after this. She had a fever last night, but she denies any other specific symptoms. Family also expresses concern that she is not remembering things very well. Patient denies any chest pain, shortness of breath, sore throat, cough, congestion, vomiting, changes in bowel movements, rashes, or swelling. Related Data Home Medications Medication Instructions Recorded Confirmed metoprolol tartrate 50 mg tablet 75 mg PO BID Hypertension 04/16/18 05/04/23 acetaminophen 300 mg-codeine 60 mg 1 tab PO Q6HP PRN pain 09/30/19 05/04/23 tablet isosorbide mononitrate 30 mg 30 mg PO TID Hypertension 09/30/19 05/04/23 tablet,extended release 24 hr clonidine HCl 0.1 mg tablet 0.1 mg PO BID High blood pressure 10/08/20 05/04/23 furosemide 20 mg tablet 20 mg PO DAILY High blood pressure 10/08/20 05/04/23 Previous Rx's Medication Instructions Recorded aspirin 81 mg tablet,delayed 81 mg PO DAILY [facility] 03/22/23 release tabs clopidogrel 75 mg tablet 75 mg PO DAILY platelet inhibitor 03/22/23 #90 tabs hydrochlorothiazide 25 mg tablet 25 mg PO DAILY High blood pressure 03/22/23 #90 tabs levothyroxine 25 mcg tablet 25 mcg PO DAILY #90 tabs 03/22/23 (Synthroid) tramadol 50 mg tablet 50 mg PO Q8H PRN pain #90 tabs 03/22/23 cephalexin 500 mg capsule 1,000 mg (2 x 500 mg) PO BID 7 04/28/23 days #28 caps amoxicillin 875 mg-potassium 1 tab PO BID #20 tabs 05/04/23 clavulanate 125 mg tablet losartan 100 mg tablet 100 mg PO DAILY #90 tabs 05/04/23 methylprednisolone 4 mg tablets in See Rx Instructions PO PER PKG DIR 06/05/23 a dose pack (Medrol (Hao)) #21 tabs Allergies Allergy/AdvReac Type Severity Reaction Status Date / Time morphine Allergy Intermediate Verified 05/04/23 14:15 phenobarbital Allergy Intermediate Verified 05/04/23 14:15 [facility] Disclaimer: The information contained in this section may have been updated after the patient was seen, as this information can be updated by other users. Medical History Noncompliance with medication regimen Edema of right lower extremity CAD (coronary artery disease), [place] coronary artery Memory deficit Type 2 diabetes mellitus Hypertension Hypothyroidism (acquired) Rhabdomyolysis Neck pain Renal failure Sciatic leg pain Abdominal pain Surgical History Hx of right coronary artery stent placement Family History Other Cancer Diabetes Kidney disease Social History (Updated 07/28/23 @ 18:16 by Carlita Reinoso RN) Smoking Status: Never smoker alcohol intake: never substance use type: denies use current occupational status: retired Travel in the last 8 weeks: None household members: none caffeine: Yes ROS Obtained: Yes All systems reviewed & no additional complaints except as documented Physical Exam General General appearance: alert and in no apparent distress Head Head exam: atraumatic and normocephalic Eye Eye exam: Present normal appearance, PERRL and EOMI ENT ENT exam: Present normal exam, normal oropharynx, mucous membranes moist and normal external ear exam Neck Neck exam: Present normal inspection, full ROM and trachea midline; Absent tenderness Chest Chest inspection: Present normal inspection and symmetric chest wall rise; Absent tenderness Respiratory Respiratory exam: Present normal lung sounds bilaterally; Absent respiratory distress, wheezes, stridor or accessory muscle use Cardiovascular Cardiovascular exam: Present regular rate and normal rhythm Abdominal Exam Abdominal exam: Present soft; Absent distention, tenderness or guarding Extremities Exam Extremities exam: Present full ROM, tenderness (Tenderness to palpation of the right shoulder. All compartments soft. Neurovascularly intact distally.) and normal capillary refill; Absent edema Back Exam Back exam: Present normal inspection and full ROM; Absent tenderness Neurological Exam Neurological exam: Present alert, oriented X3, CN II-XII intact and normal gait; Absent motor sensory deficit Psychiatric Psychiatric exam: Present normal affect and normal mood Skin Skin exam: Present warm and dry Medical Decision Making Medical Records Medical records reviewed: Yes I reviewed the patient's medical records. Deon Inquiry Pt receiving controlled substance: No Vital Signs: 07/28/23 14:45 07/28/23 15:01 07/28/23 16:30 Temperature 98.5 F Temperature Source Oral Pulse Rate 73 72 Pulse Rate [Left Radial] 77 Respiratory Rate 13 Blood Pressure 169/79 H 177/73 H Blood Pressure [Right Arm] 174/111 H Blood Pressure Mean [Right Arm] 132 02 Sat by Pulse Oximetry 97 97 95 Oxygen Delivery Method Room Air 07/28/23 18:00 Temperature 98.0 F Temperature Source Pulse Rate 72 Pulse Rate [Left Radial] Respiratory Rate 13 Blood Pressure 177/71 H Blood Pressure [Right Arm] Blood Pressure Mean [Right Arm] 02 Sat by Pulse Oximetry Oxygen Delivery Method Lab Data Lab results reviewed: Yes I reviewed the patient's lab results. Lab Results 07/28/23 14:53: WBC 8.1, RBC 3.97 L, Hgb 12.0 L, Hct 36.9 L, MCV 92.8, MCH 30.1, MCHC 32.5, RDW 14.3, Plt Count 192, MPV 9.2, Neut % (Auto) 64.0, Lymph % (Auto) 25.7, Page % (Auto) 9.0, Eos % (Auto) 0.6, Baso % (Auto) 0.8, Neut # (Auto) 5.2, Lymph # (Auto) 2.1, Page # (Auto) 0.7, Eos # (Auto) 0.1, Baso # (Auto) 0.1, Sodium 139, Potassium 3.6, Chloride 102, Carbon Dioxide 29, Anion Gap 11.6, BUN 31 H, Creatinine 1.20 H, Estimated Creat Clear 39, Estimated GFR 43 L, Est GFR ( Amer) 52 L, Glucose 97, Calcium 9.2, Total Bilirubin 0.6, AST 30, ALT 18, Alkaline Phosphatase 65, Troponin I 0.03, NT-Pro-B Natriuret Pep 1220 H, Total Protein 7.6, Albumin 4.0, Globulin 3.6 H, Albumin/Globulin Ratio 1.1, TSH 3.44, Thyroxine (T4) 5.7 07/28/23 15:03: Urine Color [place], Urine Appearance Clear, Urine pH 6.0, Ur Specific [place] 1.020, Urine Protein Negative, Urine Glucose (UA) Negative, Urine Ketones Negative, Urine Blood Negative, Urine Nitrate Negative, Urine Bilirubin Negative, Urine Urobilinogen 1.0, Ur Leukocyte Esterase Trace, Urine RBC None, Urine WBC Occasional, Ur Squamous Epith Cells Occasional, Urine Bacteria None 07/28/23 15:09: SARS-CoV-2 (PCR) Not detected, Influenza A Untype (PCR) Not detected, Influenza Type B (PCR) Not detected 07/28/23 14:53 07/28/23 14:53 Orders (Tests/Meds): ED MEDICATIONS Generic Name Dose Route Start Last Admin Trade Name Faustoq PRN Reason Stop Dose Admin Aspirin 81 mg 07/29/23 09:00 Aspirin Ec 81mg Tablet PO 08/28/23 08:59 DAILY [facility] Clopidogrel Bisulfate 75 mg 07/29/23 09:00 Clopidogrel 75mg Tab PO 08/28/23 08:59 DAILY [facility] Enoxaparin Sodium 40 mg 07/28/23 19:01 Enoxaparin 40mg/0.4ml Syringe SQ 07/28/23 19:02 ONCE ONE Furosemide 40 mg 07/28/23 18:40 Furosemide 40mg/4ml Vial IV 07/28/23 18:41 ONCE ONE Piperacillin Sod/Tazobactam 50 mls @ 100 mls/hr 07/28/23 23:30 Sod 3.375 gm/ Sodium Chloride IV 08/07/23 23:29 Q6H NICOLE Irbesartan 150 mg 07/29/23 09:00 Irbesartan 150mg Tab PO 08/28/23 08:59 DAILY NICOLE Isosorbide Mononitrate 30 mg 07/28/23 21:00 Isosorbide Page 30mg Tab.Er.24h PO 08/27/23 20:59 HS [facility] Levothyroxine Sodium 25 mcg 07/29/23 09:00 Levothyroxine 25mcg (0.025mg) Tab PO 08/28/23 08:59 DAILY [facility] Polyethylene Glycol 17 gm 07/28/23 21:00 Polyethylene Glycol 3350 17 Gm Packet PO 07/29/23 21:01 BID [facility] Senna/Docusate Sodium 1 tab 07/28/23 21:00 Sennosides 8.6mg/Docusate 50mg Tablet PO 08/27/23 20:59 BID [facility] Tramadol HCl 50 mg 07/28/23 18:39 Tramadol 50mg Tablet PO 08/27/23 18:38 Q8H PRN Moderate Pain (4-6) Discontinued Medications Generic Name Dose Route Start Last Admin Trade Name Freq PRN Reason Stop Dose Admin Acetaminophen 1,000 mg 07/28/23 15:05 07/28/23 15:19 Acetaminophen 1,000mg/100ml Vial IV 07/28/23 15:06 1,000 mg ONCE ONE Administration Hydromorphone HCl 0.25 mg 07/28/23 17:40 07/28/23 17:49 Hydromorphone 2mg/Ml Syringe IV 07/28/23 17:41 0.25 mg ONCE ONE Administration Lactated Ringer's 500 mls @ 999 mls/hr 07/28/23 15:42 07/28/23 16:15 Lactated Ringer's 1000 Ml Bag IV 07/28/23 16:12 Not Given .Q31M ONE Lactated Ringer's 500 mls @ 999 mls/hr 07/28/23 16:15 07/28/23 16:21 Lactated Ringer's 500ml IV 07/28/23 16:45 999 mls/hr .Q31M ONE Administration Piperacillin Sod/Tazobactam 50 mls @ 100 mls/hr 07/28/23 17:24 07/28/23 17:42 Sod 3.375 gm/ Sodium Chloride IV 07/28/23 17:53 100 mls/hr ONCE ONE Administration Iopamidol 75 ml 07/28/23 16:20 07/28/23 16:21 Iopamidol-370 (76%);100ml Bottle IV 07/28/23 16:21 75 ml ONCE ONE Administration Ketorolac Tromethamine 15 mg 07/28/23 15:05 07/28/23 15:19 Ketorolac 30mg/Ml Vial IV 07/28/23 15:06 15 mg ONCE ONE Administration Ondansetron HCl 4 mg 07/28/23 17:40 07/28/23 17:49 Ondansetron 4mg/2ml Vial IV 07/28/23 17:41 4 mg ONCE ONE Administration Sodium Chloride 10 ml 07/28/23 16:20 07/28/23 16:20 Sodium Chloride 0.9% 10ml Syr (Rad Only) IV 07/28/23 16:21 10 ml ONCE ONE Administration ORDERS Category Date Time Status CT abdomen pelvis w con Stat Cat Scan 07/28/23 15:[address] cervical spine wo con Stat Cat Scan 07/28/23 15:[address] head/brain wo con Stat Cat Scan 07/28/23 15:03 Completed Consult to General Surgery [CONS] Stat Cons 07/28/23 17:23 Ordered Humerus XR right [XR humerus RT] Stat Exams 07/28/23 15:05 Completed XR chest portable Stat Exams 07/28/23 15:03 Completed XR shoulder RT min 2V Stat Exams 07/28/23 15:03 Completed BNP [NT Pro Brain Natriuretic Pep.] Stat Lab 07/28/23 14:53 Completed Complete Blood Count Auto Diff AMLAB Lab 07/29/23 06:00 Ordered Complete Blood Count Auto Diff Stat Lab 07/28/23 14:53 Completed Comprehensive Metabolic Panel AMLAB Lab 07/29/23 06:00 Ordered Comprehensive Metabolic Panel Stat Lab 07/28/23 14:53 Completed Magnesium AMLAB Lab 07/29/23 06:00 Ordered Rapid PCR Covid and Flu A/B Stat Lab 07/28/23 15:09 Completed T4 (Thyroxine) Stat Lab 07/28/23 14:53 Completed TSH [Thyroid Stimulating Hormone] Stat Lab 07/28/23 14:53 Completed Trop I [Troponin I] Stat Lab 07/28/23 14:53 Completed Troponin I Q3H Lab 07/28/23 18:19 Completed Troponin I Q3H Lab 07/28/23 21:15 Ordered UA [Urinalysis and Microscopic] Stat Lab 07/28/23 15:03 Completed ECG Data Tracing #1: I reviewed this ECG and interpreted as documented below: Normal sinus rhythm with a ventricular rate of 72 bpm. Nonspecific T wave inversions in leads III and aVF which are not significantly changed from prior ECG. No acute ST changes concerning for ischemia. ECG initial impression date: 07/28/23 ECG initial impression time: 14:55 Medical Decision Narrative: In summary, this patient is a 78-year-old female presenting to the Emergency Department for evaluation of generally feeling unwell. She also had a fall a week ago with right shoulder pain since, fever last night, and daughter states that she has had some abdominal pain. Differential diagnoses considered include but are not limited to viral syndrome, intra-abdominal infection, pneumonia, urinary tract infection, dehydration, electrolyte derangements, fracture or other injury from fall. Ruling out the most morbid conditions drove assessment. It should be noted patient's history includes CAD, hypertension, diabetes which may or may not be at goal therapy. This complicates all aspects of care by increasing patient's risk for morbidity. I reviewed patient's past medical records and noted evaluation back in April in the ED for cellulitis of her scalp. No evidence of cellulitis on clinical exam at this time. On exam, the patient is well-appearing. She has normal vital signs on cardiac telemetry and is afebrile here. She has no focal neurologic deficits, cardiopulmonary exam is reassuring, and abdominal exam is benign. She has some tenderness of the right shoulder, but she is neurovascularly intact. Workup included broad lab evaluation including infectious, metabolic, and cardiac workup as well as CT head, CT C-spine, x-rays of the injured right upper extremity, chest x-ray, and CT abdomen and pelvis with IV contrast given her abdominal pain. EKG obtained is reassuring. Patient was given IV Toradol and acetaminophen for her headache. I independently interpreted x-ray and CT scan prior to the radiologist read and noted no obvious traumatic injuries, however the patient does have findings concerning for cholecystitis. Please see their read for final interpretation. Labs were obtained that demonstrated no acutely concerning abnormalities. On further assessment, patient does have right upper quadrant tenderness on exam and does complain of abdominal pain. I think her shoulder pain could likely be referred pain from cholecystitis. Labs otherwise reassuring with negative troponin, no leukocytosis, normal liver enzymes, and no elevation in bilirubin. I had an interactive discussion with the Dr. Rosales with general surgery who advised admitting the patient for IV antibiotics and monitoring with surgical consultation. I had an interactive discussion with Dr. Meléndez the hospitalist who admitted the patient for further evaluation and management. Critical Care Critical Care Time Critical Care Time: No
[2023-07-28 15:28] LABS: NT Pro Brain Natriuretic Pep. 1220 pg/mL (0-450)
[2023-07-28 15:33] LABS: Squamous Epithelial Cell,Urine Occasional #/hpf (0-5); WBC,Urine Occasional #/hpf (0-3)
[2023-07-28 15:33] LABS: Troponin I 0.03 ng/ml (0.00-0.034)
[2023-07-28 15:37] LABS: T4 (Thyroxine) 5.7 ug/dl (5.53-11.0)
[2023-07-28 15:51] LABS: Thyroid Stimulating Hormone 3.44 uIU/mL (0.465-4.68)
[2023-07-28] MEDS: SODIUM CHLORIDE 0.9% 10ML SYR (RAD ONLY) 10 ML IV (16:20)
[2023-07-28] MEDS: IOPAMIDOL-370 (76%);100ML BOTTLE 75 ML IV (16:21)
[2023-07-28] MEDS: RINGERS SOLUTION,LACTATED 500 ML 999 ML IV (16:21)
[2023-07-28 16:30] VITALS: BP 177/73; PULSE 72; O2SAT 95
--- NOTE | 2023-07-28 17:22 | PC.NURSE ---
DR HENDRICKS PAGED
--- NOTE | 2023-07-28 17:30 | PC.NURSE ---
HS aware of admission
--- NOTE | 2023-07-28 17:38 | PC.NURSE ---
report called to brenton on second floor
[2023-07-28] MEDS: PIPERACILLIN/TAZO 3.375 GM in 0.9 % SODIUM CHLORIDE 50 ML IV (17:42)
[2023-07-28] MEDS: ONDANSETRON 4MG/2ML VIAL 4 MG IV (17:49)
[2023-07-28] MEDS: HYDROMORPHONE 2MG/ML SYRINGE 0.25 MG IV (17:49)
--- NOTE | 2023-07-28 17:56 | P.CONS_ITS ---
History of Present Illness *Admission Date: 07/28/23 *Reason for visit:: Gallbladder *History of present illness: Patient is an 78-year-old female with a history of of type 2 diabetes, hypertension, coronary artery disease with previous stenting, on Plavix who presented to the emergency department with generally not feeling well . She has felt unwell for several weeks. She is also generalized weakness and cough. She presented to the emergency department with these multiple complaints and also with right shoulder pain. She had a fever. Evaluation in the emergency department revealed normal white blood cell count. She has a BUN of 31 with a creatinine of 1.2. BNP 1220. Liver function tests are normal. She underwent CT scan which reveals slightly prominent gallbladder wall with subtle pericholecystic fat stranding. Findings appear suspicious for early or mild acute cholecystitis, although not definitively diagnostic. There was no evidence of any gallstones. Surgery was contacted regarding these CT findings. [facility] Disclaimer: The information contained in this section may have been updated after the patient was seen, as this information can be updated by other users. Medical History Noncompliance with medication regimen Edema of right lower extremity CAD (coronary artery disease), [place] coronary artery Memory deficit Type 2 diabetes mellitus Hypertension Hypothyroidism (acquired) Rhabdomyolysis Neck pain Renal failure Sciatic leg pain Abdominal pain Surgical History Hx of right coronary artery stent placement Family History Other Cancer Diabetes Kidney disease Social History Smoking Status: Never smoker alcohol intake: never substance use type: denies use current occupational status: retired Travel in the last 8 weeks: None household members: none caffeine: Yes Meds Home Medications and Allergies Home Medications Medication Instructions Recorded Confirmed Type metoprolol tartrate 50 mg tablet 75 mg PO BID Hypertension 04/16/18 05/04/23 History acetaminophen 300 mg-codeine 60 mg 1 tab PO Q6HP PRN pain 09/30/19 05/04/23 History tablet isosorbide mononitrate 30 mg 30 mg PO TID Hypertension 09/30/19 05/04/23 History tablet,extended release 24 hr clonidine HCl 0.1 mg tablet 0.1 mg PO BID High blood pressure 10/08/20 05/04/23 History furosemide 20 mg tablet 20 mg PO DAILY High blood pressure 10/08/20 05/04/23 History aspirin 81 mg tablet,delayed 81 mg PO DAILY HEART HEALTH #100 03/22/23 05/04/23 Rx release tabs clopidogrel 75 mg tablet 75 mg PO DAILY platelet inhibitor 03/22/23 05/04/23 Rx #90 tabs hydrochlorothiazide 25 mg tablet 25 mg PO DAILY High blood pressure 03/22/23 05/04/23 Rx #90 tabs levothyroxine 25 mcg tablet 25 mcg PO DAILY #90 tabs 03/22/23 05/04/23 Rx (Synthroid) tramadol 50 mg tablet 50 mg PO Q8H PRN pain #90 tabs 03/22/23 05/04/23 Rx cephalexin 500 mg capsule 1,000 mg (2 x 500 mg) PO BID 7 04/28/23 05/04/23 Rx days #28 caps amoxicillin 875 mg-potassium 1 tab PO BID #20 tabs 05/04/23 05/04/23 Rx clavulanate 125 mg tablet losartan 100 mg tablet 100 mg PO DAILY #90 tabs 05/04/23 05/04/23 Rx methylprednisolone 4 mg tablets in See Rx Instructions PO PER PKG DIR 06/05/23 06/05/23 Rx a dose pack (Medrol (Hao)) #21 tabs New Prescriptions to Start Prescriptions: Allergies Allergy/AdvReac Type Severity Reaction Status Date / Time morphine Allergy Intermediate Verified 05/04/23 14:15 phenobarbital Allergy Intermediate Verified 05/04/23 14:15 Exam (Inpt) Vital signs and Labs for Last 24 Hours: Temp Pulse Resp BP Pulse Ox O2 Del Method 98.5 F 72 13 177/73 H 95 Room Air 07/28/23 14:45 07/28/23 16:30 07/28/23 14:45 07/28/23 16:30 07/28/23 16:30 07/28/23 14:45 Laboratory Results - last 24 hr 07/28/23 14:53: WBC 8.1, RBC 3.97 L, Hgb 12.0 L, Hct 36.9 L, MCV 92.8, MCH 30.1, MCHC 32.5, RDW 14.3, Plt Count 192, MPV 9.2, Neut % (Auto) 64.0, Lymph % (Auto) 25.7, [place] % (Auto) 9.0, Eos % (Auto) 0.6, Baso % (Auto) 0.8, Neut # (Auto) 5.2, Lymph # (Auto) 2.1, [place] # (Auto) 0.7, Eos # (Auto) 0.1, Baso # (Auto) 0.1, Sodium 139, Potassium 3.6, Chloride 102, Carbon Dioxide 29, Anion Gap 11.6, BUN 31 H, Creatinine 1.20 H, Estimated Creat Clear 39, Estimated GFR 43 L, Est GFR ( Amer) 52 L, Glucose 97, Calcium 9.2, Total Bilirubin 0.6, AST 30, ALT 18, Alkaline Phosphatase 65, Troponin I 0.03, NT-Pro-B Natriuret Pep 1220 H, Total Protein 7.6, Albumin 4.0, Globulin 3.6 H, Albumin/Globulin Ratio 1.1, TSH 3.44, Thyroxine (T4) 5.7 07/28/23 15:03: Urine Color [place], Urine Appearance Clear, Urine pH 6.0, Ur Specific [place] 1.020, Urine Protein Negative, Urine Glucose (UA) Negative, Urine Ketones Negative, Urine Blood Negative, Urine Nitrate Negative, Urine Bilirubin Negative, Urine Urobilinogen 1.0, Ur Leukocyte Esterase Trace, Urine RBC None, Urine WBC Occasional, Ur Squamous Epith Cells Occasional, Urine Bacteria None 07/28/23 15:09: SARS-CoV-2 (PCR) Not detected, Influenza A Untype (PCR) Not detected, Influenza Type B (PCR) Not detected I & O for Labs for Last 24 Hours: Intake & Output 07/26/23 07/27/23 07/28/23 07/29/23 11:59 11:59 11:59 11:59 Weight 145 lb Constitutional: no acute distress and chronically ill appearing Head: Present normocephalic Respiratory: Present decreased breath sounds GI: Present soft; Absent tenderness Results Labs 07/28/23 14:53 07/28/23 14:53 Labs: Laboratory Results - last 24 hr 07/28/23 14:53: WBC 8.1, RBC 3.97 L, Hgb 12.0 L, Hct 36.9 L, MCV 92.8, MCH 30.1, MCHC 32.5, RDW 14.3, Plt Count 192, MPV 9.2, Neut % (Auto) 64.0, Lymph % (Auto) 25.7, [place] % (Auto) 9.0, Eos % (Auto) 0.6, Baso % (Auto) 0.8, Neut # (Auto) 5.2, Lymph # (Auto) 2.1, [place] # (Auto) 0.7, Eos # (Auto) 0.1, Baso # (Auto) 0.1, Sodium 139, Potassium 3.6, Chloride 102, Carbon Dioxide 29, Anion Gap 11.6, BUN 31 H, Creatinine 1.20 H, Estimated Creat Clear 39, Estimated GFR 43 L, Est GFR ( Amer) 52 L, Glucose 97, Calcium 9.2, Total Bilirubin 0.6, AST 30, ALT 18, Alkaline Phosphatase 65, Troponin I 0.03, NT-Pro-B Natriuret Pep 1220 H, Total Protein 7.6, Albumin 4.0, Globulin 3.6 H, Albumin/Globulin Ratio 1.1, TSH 3.44, Thyroxine (T4) 5.7 07/28/23 15:03: Urine Color [place], Urine Appearance Clear, Urine pH 6.0, Ur Specific [place] 1.020, Urine Protein Negative, Urine Glucose (UA) Negative, Urine Ketones Negative, Urine Blood Negative, Urine Nitrate Negative, Urine Bilirubin Negative, Urine Urobilinogen 1.0, Ur Leukocyte Esterase Trace, Urine RBC None, Urine WBC Occasional, Ur Squamous Epith Cells Occasional, Urine Bacteria None 07/28/23 15:09: SARS-CoV-2 (PCR) Not detected, Influenza A Untype (PCR) Not detected, Influenza Type B (PCR) Not detected Assessment and Plan *Assessment and plan (1) Cholecystitis: Status: Acute Category: Medical Code(s): K81.9 - Cholecystitis, unspecified Plan Patient may have some degree of mild cholecystitis. However she has minimal findings on physical examination and normal labs. For this reason I would not pursue immediate cholecystectomy. She would need medical optimization and evaluation for any other concomitant conditions. Also ultimately will need cardiology assessment. Much of her workup and management regarding cardiac risk assessment, optimization, and potential gallbladder surgery can be managed as an outpatient after this hospitalization. In the interim I would recommend limited diet and IV antibiotics.
[2023-07-28 18:00] VITALS: BP 177/71; PULSE 72; RESP 13; TEMP 36.7
[2023-07-28 18:23] VITALS: BP 162/74; PULSE 68; RESP 20; O2SAT 96
[2023-07-28 18:24] VITALS: BMI 29.0
--- NOTE | 2023-07-28 18:28 | PC.NURSE ---
Unable to complete med rec due to patient not knowing what she takes. Attempted to call daughter but was unable to get a hold of her.
--- NOTE | 2023-07-28 18:37 | P.HP_ITS ---
History of Present Illness *Admission Date: 07/28/23 *Reason for visit:: shoulder pain *History of present illness: Ms. Mcbride is an 78-year-old female with history of diabetes, hypertension, CAD with previous stenting. She presented to the ER for just not feeling well in general per her report. Was complaining of some right shoulder pain and not feeling well for the past couple weeks. Has had generalized weakness and cough. Evaluation in the ER revealed a normal white cell count, mild elevation in her kidney function, BNP of 1200, and CT of the abdomen showing slightly prominent gallbladder with pericholecystic stranding. She also was noted to have moderate stool burden on personal review. Findings were suspicious for mild cholecystitis. Surgical eval was placed and recommendations for admission for serial exams and IV antibiotics. Medicine was consulted for admission. On arrival to the floor, patient denies any nausea or vomiting. Is asking for something to eat. States she just does not feel well. Main pain in her shoulder is reproducible on exam in the upper trapezius. Abdomen nonfocally tender with no guarding or rebound. Afebrile and on room air. Family at bedside. States she has hard stools that are like little balls. Has not pooped in a day or 2. [facility] Disclaimer: The information contained in this section may have been updated after the taniya hernandez was seen, as this information can be updated by other users. Medical History Noncompliance with medication regimen Edema of right lower extremity CAD (coronary artery disease), [place] coronary artery Memory deficit Type 2 diabetes mellitus Hypertension Hypothyroidism (acquired) Rhabdomyolysis Neck pain Renal failure Sciatic leg pain Abdominal pain Surgical History Hx of right coronary artery stent placement Family History Other Cancer Diabetes Kidney disease Social History Smoking Status: Never smoker alcohol intake: never substance use type: denies use current occupational status: retired Travel in the last 8 weeks: None household members: none caffeine: Yes Review of Systems Review of Systems Review of systems (narrative): 14 point review of systems performed, pertinent positives and negatives as per HPI Meds Home Medications and Allergies Home Medications Medication Instructions Recorded Confirmed Type metoprolol tartrate 50 mg tablet 75 mg PO BID Hypertension 04/16/18 07/29/23 History isosorbide mononitrate 30 mg 30 mg PO TID Hypertension 09/30/19 07/29/23 History tablet,extended release 24 hr clonidine HCl 0.1 mg tablet 0.1 mg PO BID 10/08/20 07/29/23 History furosemide 20 mg tablet 20 mg PO DAILY High blood pressure 10/08/20 07/29/23 History aspirin 81 mg tablet,delayed 81 mg PO DAILY [facility] #100 03/22/23 07/29/23 Rx release tabs clopidogrel 75 mg tablet 75 mg PO DAILY platelet inhibitor 03/22/23 07/29/23 Rx #90 tabs hydrochlorothiazide 25 mg tablet 25 mg PO DAILY High blood pressure 03/22/23 07/29/23 Rx #90 tabs levothyroxine 25 mcg tablet 25 mcg PO DAILY #90 tabs 03/22/23 07/29/23 Rx (Synthroid) losartan 100 mg tablet 100 mg PO DAILY #90 tabs 05/04/23 07/29/23 Rx amoxicillin 875 mg-potassium 1 tab PO BID 5 days #10 tabs 07/29/23 Rx clavulanate 125 mg tablet nitroglycerin 0.4 mg sublingual 0.4 mg sublingual Q5MINP PRN Chest 07/29/23 07/29/23 History tablet Pain sennosides 8.6 mg-docusate sodium 1 tab PO BID PRN Constipation 30 07/29/23 Rx 50 mg tablet (Stimulant Laxative days #60 tabs Plus) New Prescriptions to Start Prescriptions: jae-pot clavulanate Fredy Meléndez sennosides-docusate sodium [Stimulant Laxative Plus] Fredy Meléndez Allergies Allergy/AdvReac Type Severity Reaction Status Date / Time morphine Allergy Intermediate Verified 05/04/23 14:15 phenobarbital Allergy Intermediate Verified 05/04/23 14:15 Exam Data for Last 24 hours Vital signs and Labs for Last 24 Hours: Temp Pulse Resp BP Pulse Ox O2 Del Method 98.0 F 68 20 162/74 H 96 Room Air 07/28/23 18:00 07/28/23 18:23 07/28/23 18:23 07/28/23 18:23 07/28/23 18:23 07/28/23 18:23 Laboratory Results - last 24 hr 07/28/23 14:53: WBC 8.1, RBC 3.97 L, Hgb 12.0 L, Hct 36.9 L, MCV 92.8, MCH 30.1, MCHC 32.5, RDW 14.3, Plt Count 192, MPV 9.2, Neut % (Auto) 64.0, Lymph % (Auto) 25.7, [place] % (Auto) 9.0, Eos % (Auto) 0.6, Baso % (Auto) 0.8, Neut # (Auto) 5.2, Lymph # (Auto) 2.1, [place] # (Auto) 0.7, Eos # (Auto) 0.1, Baso # (Auto) 0.1, Sodium 139, Potassium 3.6, Chloride 102, Carbon Dioxide 29, Anion Gap 11.6, BUN 31 H, Creatinine 1.20 H, Estimated Creat Clear 39, Estimated GFR 43 L, Est GFR ( Amer) 52 L, Glucose 97, Calcium 9.2, Total Bilirubin 0.6, AST 30, ALT 18, Alkaline Phosphatase 65, Troponin I 0.03, NT-Pro-B Natriuret Pep 1220 H, Total Protein 7.6, Albumin 4.0, Globulin 3.6 H, Albumin/Globulin Ratio 1.1, TSH 3.44, Thyroxine (T4) 5.7 07/28/23 15:03: Urine Color [place], Urine Appearance Clear, Urine pH 6.0, Ur Specific [place] 1.020, Urine Protein Negative, Urine Glucose (UA) Negative, Urine Ketones Negative, Urine Blood Negative, Urine Nitrate Negative, Urine Bilirubin Negative, Urine Urobilinogen 1.0, Ur Leukocyte Esterase Trace, Urine RBC None, Urine WBC Occasional, Ur Squamous Epith Cells Occasional, Urine Bacteria None 07/28/23 15:09: SARS-CoV-2 (PCR) Not detected, Influenza A Untype (PCR) Not detected, Influenza Type B (PCR) Not detected I & O for Last 24 hours: Intake & Output 07/25/23 07/26/23 07/27/23 07/28/23 23:59 23:59 23:59 23:59 Weight 74.389 kg Constitutional Constitutional: no acute distress, obese and cooperative *Routine HEENT Exam Head: Present normocephalic Eye: Present EOMI and PERRL ENT: Present mucous membranes moist *Routine Neck Exam Neck: Present supple; Absent lymphadenopathy *Routine Respiratory Exam Respiratory: Present CTA bilaterally *Routine Cardiovascular Exam Cardiovascular: Present RRR and murmur *Routine Abdominal Exam Abdominal: Present soft, normoactive bowel sounds and tenderness (Nonfocal, mild); Absent distended *Routine Rectal Exam Rectal:: deferred *Routine Genitalia Exam Genitalia:: deferred *Routine Extremities Exam Extremities: Absent cyanosis, clubbing or edema *Routine Skin Exam Skin: Present warm; Absent rash *Routine Neurological Exam Neurological: Present alert, oriented X3 and moving all extremities; Absent altered mental status Assessment and Plan *Assessment and plan (1) Acute pain of right shoulder: Status: Acute Category: Medical Code(s): M25.511 - Pain in right shoulder (2) Cholecystitis: Status: Acute Category: Medical Code(s): K81.9 - Cholecystitis, unspecified (3) Type 2 diabetes mellitus: Status: Chronic Category: Medical Code(s): E11.9 - Type 2 diabetes mellitus without complications (4) Hypertension: Status: Chronic Qualifiers: Hypertension type: essential hypertension Qualified Code(s): I10 - Essential (primary) hypertension Category: Medical Code(s): I10 - Essential (primary) hypertension (5) Hypothyroidism (acquired): Status: Chronic Category: Medical Code(s): E03.9 - Hypothyroidism, unspecified (6) Memory deficit: Status: Acute Category: Medical Code(s): R41.3 - Other amnesia (7) CAD (coronary artery disease), [place] coronary artery: Status: Acute Category: Medical Code(s): I25.10 - Atherosclerotic heart disease of [place] coronary artery without angina pectoris Plan 78-year-old female who presented to the ER with multiple complaints. Concerning findings on workup in the ER for possible cholecystitis. Case discussed with ER physician, request admission for serial exams and IV antibiotics at the recommendation of surgery. Medicine agreed to admit overnight for further monitoring. Patient hemodynamically stable on arrival to the floor. Reports having had a fall recently and fell on her shoulder where her pain is. Differential diagnosis includes musculoskeletal pain, early cholecystitis, constipation, arthritis. Problems addressed as follows: Cholecystitis/abnormal CT of abdomen Constipation Diverticulosis -Liver enzymes normal however his stranding on CT with personal review. Concern for early cholecystitis. -Initiate Zosyn 3.375 g every 6 hours -Surgery consulted, discussed case, will monitor with serial exams. Reevaluate in the morning. -Continue liquid diet. -Stool softener for constipation CAD Hypertension Heart failure with preserved ejection fraction -Home regimen with clonidine point 1 mg twice a day newly, Plavix 75 mg daily, Lasix daily, HCTZ daily, isosorbide daily, losartan daily. -Would benefit from further follow-up as an outpatient with cardiology. Previous echo 2 years ago showing mild aortic stenosis with thickening of valve. Has diastolic dysfunction -Mild elevation in BNP. Does not appear significantly volume overloaded. Would benefit from optimization however. Hypothyroid: -TSH 2.6, continue levothyroxine 25 mcg daily DNR Liquid diet until midnight; n.p.o. thereafter pending exam the morning Lovenox 40 mg subcu daily
[2023-07-28 18:49] LABS: Troponin I 0.03 ng/ml (0.00-0.034)
[2023-07-28 20:00] VITALS: BP 149/65; PULSE 65; RESP 17; TEMP 36.6; O2SAT 98
[2023-07-28] MEDS: ISOSORBIDE MONO 30MG TAB.ER.24H 30 MG PO (20:27)
[2023-07-28] MEDS: POLYETHYLENE GLYCOL 3350 17 GM PACKET PO (20:27)
[2023-07-28] MEDS: ENOXAPARIN 40MG/0.4ML SYRINGE 40 MG SQ (20:27)
[2023-07-28] MEDS: FUROSEMIDE 40MG/4ML VIAL 40 MG IV (20:27)
[2023-07-28] MEDS: SENNOSIDES 8.6MG/DOCUSATE 50MG TABLET 1 TAB PO (20:27)
[2023-07-28 21:19] LABS: Hemoglobin A1C 5.6 % (4.0-6.0)
[2023-07-28 21:29] LABS: Troponin I 0.03 ng/ml (0.00-0.034)
[2023-07-28] MEDS: PIPERCILLIN/TAZO 3.375 GM in 0.9 % SODIUM CHLORIDE 50 ML IV (23:53)
[2023-07-29 04:00] VITALS: BP 119/66; PULSE 86; RESP 17; TEMP 37; O2SAT 94; BMI 29.0
[2023-07-29] MEDS: TRAMADOL 50MG TABLET 50 MG PO (04:27)
[2023-07-29] MEDS: PIPERCILLIN/TAZO 3.375 GM in 0.9 % SODIUM CHLORIDE 50 ML IV ×2 (05:34→12:50)
--- NOTE | 2023-07-29 06:17 | PC.NURSE ---
pt. is A&O to person and sometimes place, ambulates to and from bathroom with assistance, c/o pain in right side and shoulder, medicated per mar for pain with favorable result, tolerating full liquid diet well, call button is in reach
[2023-07-29 07:14] LABS: Chloride 103 mmol/L (98-107); Potassium 3.7 mmoL/L (3.5-5.1); Sodium 138 mmol/L (136-145)
[2023-07-29 07:16] LABS: Basophils % 0.5 % (0.1-2.0); Eosinophils % 0.6 % (0.1-12.0); Hematocrit 35.7 % (37.0-47.0); Hemoglobin 11.5 g/dL (12.2-16.2); Lymphocytes # 1.6 K/mm3 (0.7-4.5); Lymphocytes % 22.3 % (10-50); Mean Corpuscular HGB Conc 32.1 g/dL (31.8-35.4); Mean Corpuscular Hemoglobin 29.7 pg (27.0-31.2); Mean Corpuscular Volume 92.6 fl (81-99); Mean Platelet Volume 9.6 fl (7.4-10.4); Monocytes # 0.5 K/mm3 (0.1-1.0); Monocytes % 6.8 % (1.7-9.3); Neutrophils # 4.9 K/mm3 (1.8-7.8); Neutrophils % 69.9 % (37.0-80.0); Platelet Count 214 K/mm3 (142-424); Red Blood Count 3.85 M/mm3 (4.20-5.40); Red Cell Distribution Width 14.4 % (11.5-17.5)
[2023-07-29 07:17] LABS: Alanine Aminotransferase 17 U/L (12-78); Albumin Level 3.6 g/dl (3.5-5.0); Albumin/Globulin Ratio 1.1 (1.1-1.8); Alkaline Phosphatase 60 U/L (38-126); Anion Gap 9.7 mEq/L (5-15); Aspartate Amino Transferase 26 U/L (14-36); Bilirubin,Total 0.8 mg/dl (0.2-1.3); Blood Urea Nitrogen 26 mg/dl (7-17); Carbon Dioxide 29 mmol/L (22.0-30.0); Creatinine Clearance Estimated 41 mL/min (50-200); Estimated Glomerular Filt Rate 39 ml/min (>60); GFR (African American) 48 ML/MIN (>60); Globulin 3.4 g/dL (1.3-3.2); Glucose 98 mg/dl (74-100); Magnesium 1.6 mg/dl (1.6-2.3)
--- NOTE | 2023-07-29 07:48 | P.PN_ITS ---
Subjective Narrative: Patient sleeping soundly this morning. When awakened she states that she does not feel good generally. She describes being sick. However, denies nausea or abdominal pain. Complains rather nonspecific. Although she does complain of significant pain in her feet and toes. Exam Data for Last 24 hours Vital signs and Labs for Last 24 Hours: Temp Pulse Resp BP Pulse Ox O2 Del Method 98.6 F 86 17 119/66 94 L Room Air 07/29/23 04:00 07/29/23 04:00 07/29/23 04:00 07/29/23 04:00 07/29/23 04:00 07/29/23 06:47 Laboratory Results - last 24 hr 07/28/23 14:53: WBC 8.1, RBC 3.97 L, Hgb 12.0 L, Hct 36.9 L, MCV 92.8, MCH 30.1, MCHC 32.5, RDW 14.3, Plt Count 192, MPV 9.2, Neut % (Auto) 64.0, Lymph % (Auto) 25.7, [place] % (Auto) 9.0, Eos % (Auto) 0.6, Baso % (Auto) 0.8, Neut # (Auto) 5.2, Lymph # (Auto) 2.1, [place] # (Auto) 0.7, Eos # (Auto) 0.1, Baso # (Auto) 0.1, Sodium 139, Potassium 3.6, Chloride 102, Carbon Dioxide 29, Anion Gap 11.6, BUN 31 H, Creatinine 1.20 H, Estimated Creat Clear 39, Estimated GFR 43 L, Est GFR ( Amer) 52 L, Glucose 97, Calcium 9.2, Total Bilirubin 0.6, AST 30, ALT 18, Alkaline Phosphatase 65, Troponin I 0.03, NT-Pro-B Natriuret Pep 1220 H, Total Protein 7.6, Albumin 4.0, Globulin 3.6 H, Albumin/Globulin Ratio 1.1, TSH 3.44, Thyroxine (T4) 5.7 07/28/23 15:03: Urine Color [place], Urine Appearance Clear, Urine pH 6.0, Ur Specific [place] 1.020, Urine Protein Negative, Urine Glucose (UA) Negative, Urine Ketones Negative, Urine Blood Negative, Urine Nitrate Negative, Urine Bilirubin Negative, Urine Urobilinogen 1.0, Ur Leukocyte Esterase Trace, Urine RBC None, Urine WBC Occasional, Ur Squamous Epith Cells Occasional, Urine Bacteria None 07/28/23 15:09: SARS-CoV-2 (PCR) Not detected, Influenza A Untype (PCR) Not detected, Influenza Type B (PCR) Not detected 07/28/23 18:19: Troponin I 0.03 07/28/23 21:05: Hemoglobin A1c 5.6, Troponin I 0.03, TSH 2.60 07/29/23 06:32: WBC 7.0, RBC 3.85 L, Hgb 11.5 L, Hct 35.7 L, MCV 92.6, MCH 29.7, MCHC 32.1, RDW 14.4, Plt Count 214, MPV 9.6, Neut % (Auto) 69.9, Lymph % (Auto) 22.3, [place] % (Auto) 6.8, Eos % (Auto) 0.6, Baso % (Auto) 0.5, Neut # (Auto) 4.9, Lymph # (Auto) 1.6, [place] # (Auto) 0.5, Eos # (Auto) 0.0, Baso # (Auto) 0.0, Sodium 138, Potassium 3.7, Chloride 103, Carbon Dioxide 29, Anion Gap 9.7, BUN 26 H, Creatinine 1.30 H, Estimated Creat Clear 41, Estimated GFR 39 L, Est GFR ( Amer) 48 L, Glucose 98, Calcium 9.0, Magnesium 1.6, Total Bilirubin 0.8, AST 26, ALT 17, Alkaline Phosphatase 60, Total Protein 7.0, Albumin 3.6, Globulin 3.4 H, Albumin/Globulin Ratio 1.1 I & O for Last 24 hours: Intake & Output 07/26/23 07/27/23 07/28/23 07/29/23 11:59 11:59 11:59 11:59 Intake Total 50 / 50 Output Total 0 / 0 Balance 50 / 50 Weight 164 lb 0.383 oz *Routine Abdominal Exam Abdominal: Present soft; Absent tenderness Progress Note: A&P Assessment and plan (1) Acute pain of right shoulder: Status: Acute (2) Cholecystitis: Status: Acute Assessment and plan: No indications for surgical intervention at this time regarding gallbladder. Cardiology risk assessment and ultrasound in the near future, potentially as an outpatient if patient is able to discharge from a medical standpoint. (3) Type 2 diabetes mellitus: Status: Chronic (4) Hypertension: Status: Chronic (5) Hypothyroidism (acquired): Status: Chronic (6) Memory deficit: Status: Acute (7) CAD (coronary artery disease), [place] coronary artery: Status: Acute
[2023-07-29 08:00] VITALS: BP 125/57; PULSE 82; RESP 18; TEMP 36.4; O2SAT 91
[2023-07-29 09:18] VITALS: BP 125/57; PULSE 82; RESP 18; TEMP 36.4; O2SAT 91
[2023-07-29] MEDS: LEVOTHYROXINE 25MCG (0.025MG) TAB 25 MCG PO (09:35)
[2023-07-29] MEDS: POLYETHYLENE GLYCOL 3350 17 GM PACKET PO (09:35)
[2023-07-29] MEDS: IRBESARTAN 150MG TAB 150 MG PO (09:36)
[2023-07-29] MEDS: CLOPIDOGREL 75MG TAB 75 MG PO (09:36)
[2023-07-29] MEDS: ASPIRIN EC 81MG TABLET 81 MG PO (09:36)
[2023-07-29] MEDS: SENNOSIDES 8.6MG/DOCUSATE 50MG TABLET 1 TAB PO (09:36)
--- NOTE | 2023-07-29 13:12 | EXP.DC.SUM ---
General Admission date:: 07/28/23 Discharge date: 07/29/23 HPI HPI HPI: Ms. Mcbride is an 78-year-old female with history of diabetes, hypertension, CAD with previous stenting. She presented to the ER for just not feeling well in general per her report. Was complaining of some right shoulder pain and not feeling well for the past couple weeks. Has had generalized weakness and cough. Evaluation in the ER revealed a normal white cell count, mild elevation in her kidney function, BNP of 1200, and CT of the abdomen showing slightly prominent gallbladder with pericholecystic stranding. She also was noted to have moderate stool burden on personal review. Findings were suspicious for mild cholecystitis. Surgical eval was placed and recommendations for admission for serial exams and IV antibiotics. Medicine was consulted for admission. On arrival to the floor, patient denies any nausea or vomiting. Is asking for something to eat. States she just does not feel well. Main pain in her shoulder is reproducible on exam in the upper trapezius. Abdomen nonfocally tender with no guarding or rebound. Afebrile and on room air. Family at bedside. States she has hard stools that are like little balls. Has not pooped in a day or 2. Hospital Course Hospital Course Hospital Course: 78-year-old female who presented to the ER with multiple complaints. Concerning findings on workup in the ER for possible cholecystitis. Case discussed with ER physician, request admission for serial exams and IV antibiotics at the recommendation of surgery. Medicine agreed to admit overnight for further monitoring. Patient hemodynamically stable on arrival to the floor. Reports having had a fall recently and fell on her shoulder where her pain is. Differential diagnosis includes musculoskeletal pain, early cholecystitis, constipation, arthritis. Monitored overnight. Abdominal exam stable. White cell count remains normal. Stable on room air. Will discharge home to continue oral antibiotics. Close follow-up with surgery as an outpatient. Low concern for acute cholecystitis. Problems addressed as follows: Cholecystitis/abnormal CT of abdomen Constipation Diverticulosis -Surgery was consulted in the ER. Patient CT and labs were reviewed. Normal liver enzymes and mild fat stranding around gallbladder on CT of abdomen. Started on Zosyn. White cell count remained normal. Exam benign on morning of discharge. Concern the patient has constipation and needs to have a bowel movement. Low concern for severe cholecystitis at this time necessitating intervention. Will have close follow-up in the outpatient setting and continue medical management at this time with 5 more days of antibiotics. Continue stool softener at discharge. CAD Hypertension Heart failure with preserved ejection fraction -Home regimen with clonidine point 1 mg twice a day newly, Plavix 75 mg daily, Lasix daily, HCTZ daily, isosorbide daily, losartan daily. -Would benefit from further follow-up as an outpatient with cardiology. Previous echo 2 years ago showing mild aortic stenosis with thickening of valve. Has diastolic dysfunction -Mild elevation in BNP. Does not appear significantly volume overloaded. Would benefit from optimization as outpatient. Hypothyroid: TSH 2.6, continue levothyroxine 25 mcg daily Total time spent on discharge 32 minutes in counseling, documentation, chart review, and direct care with patient. Exam Data for Last 24 hours Vital signs and Labs for Last 24 Hours: Temp Pulse Resp BP Pulse Ox O2 Del Method 97.5 F L 82 18 125/57 L 91 L Room Air 07/29/23 09:18 07/29/23 09:18 07/29/23 09:18 07/29/23 09:18 07/29/23 09:18 07/29/23 11:00 Laboratory Results - last 24 hr 07/28/23 14:53: WBC 8.1, RBC 3.97 L, Hgb 12.0 L, Hct 36.9 L, MCV 92.8, MCH 30.1, MCHC 32.5, RDW 14.3, Plt Count 192, MPV 9.2, Neut % (Auto) 64.0, Lymph % (Auto) 25.7, [place] % (Auto) 9.0, Eos % (Auto) 0.6, Baso % (Auto) 0.8, Neut # (Auto) 5.2, Lymph # (Auto) 2.1, [place] # (Auto) 0.7, Eos # (Auto) 0.1, Baso # (Auto) 0.1, Sodium 139, Potassium 3.6, Chloride 102, Carbon Dioxide 29, Anion Gap 11.6, BUN 31 H, Creatinine 1.20 H, Estimated Creat Clear 39, Estimated GFR 43 L, Est GFR ( Amer) 52 L, Glucose 97, Calcium 9.2, Total Bilirubin 0.6, AST 30, ALT 18, Alkaline Phosphatase 65, Troponin I 0.03, NT-Pro-B Natriuret Pep 1220 H, Total Protein 7.6, Albumin 4.0, Globulin 3.6 H, Albumin/Globulin Ratio 1.1, TSH 3.44, Thyroxine (T4) 5.7 07/28/23 15:03: Urine Color [place], Urine Appearance Clear, Urine pH 6.0, Ur Specific [place] 1.020, Urine Protein Negative, Urine Glucose (UA) Negative, Urine Ketones Negative, Urine Blood Negative, Urine Nitrate Negative, Urine Bilirubin Negative, Urine Urobilinogen 1.0, Ur Leukocyte Esterase Trace, Urine RBC None, Urine WBC Occasional, Ur Squamous Epith Cells Occasional, Urine Bacteria None 07/28/23 15:09: SARS-CoV-2 (PCR) Not detected, Influenza A Untype (PCR) Not detected, Influenza Type B (PCR) Not detected 07/28/23 18:19: Troponin I 0.03 07/28/23 21:05: Hemoglobin A1c 5.6, Troponin I 0.03, TSH 2.60 07/29/23 06:32: WBC 7.0, RBC 3.85 L, Hgb 11.5 L, Hct 35.7 L, MCV 92.6, MCH 29.7, MCHC 32.1, RDW 14.4, Plt Count 214, MPV 9.6, Neut % (Auto) 69.9, Lymph % (Auto) 22.3, [place] % (Auto) 6.8, Eos % (Auto) 0.6, Baso % (Auto) 0.5, Neut # (Auto) 4.9, Lymph # (Auto) 1.6, [place] # (Auto) 0.5, Eos # (Auto) 0.0, Baso # (Auto) 0.0, Sodium 138, Potassium 3.7, Chloride 103, Carbon Dioxide 29, Anion Gap 9.7, BUN 26 H, Creatinine 1.30 H, Estimated Creat Clear 41, Estimated GFR 39 L, Est GFR ( Amer) 48 L, Glucose 98, Calcium 9.0, Magnesium 1.6, Total Bilirubin 0.8, AST 26, ALT 17, Alkaline Phosphatase 60, Total Protein 7.0, Albumin 3.6, Globulin 3.4 H, Albumin/Globulin Ratio 1.1 I & O for Last 24 hours: Intake & Output 07/26/23 07/27/23 07/28/23 07/29/23 23:59 23:59 23:59 23:59 Intake Total 170 / 170 Output Total 0 / 0 200 / 200 Balance 0 / 50 -30 / -30 Weight 74.389 kg 74.4 kg Constitutional Constitutional: no acute distress, obese and cooperative *Routine HEENT Exam Head: Present normocephalic Eye: Present EOMI and PERRL ENT: Present mucous membranes moist *Routine Neck Exam Neck: Present supple; Absent lymphadenopathy *Routine Respiratory Exam Respiratory: Present CTA bilaterally *Routine Cardiovascular Exam Cardiovascular: Present RRR and murmur *Routine Abdominal Exam Abdominal: Present soft, normoactive bowel sounds and tenderness (Minimal, nonfocal); Absent rebound, guarding or firm *Routine Rectal Exam Patient deferred: visual exam *Routine Exam Patient deferred: external exam *Routine Extremities Exam Extremities: Absent cyanosis, clubbing or edema *Routine Skin Exam Skin: Present warm; Absent rash *Routine Neurological Exam Neurological: Present alert, oriented X3 and moving all extremities; Absent altered mental status Results Data Completed and Pending Labs on day of discharge: Labs from last 24 hours 07/29/23 07/28/23 07/28/23 06:32 21:05 18:19 WBC 7.0 RBC 3.85 L Hgb 11.5 L Hct 35.7 L MCV 92.6 MCH 29.7 MCHC 32.1 RDW 14.4 Plt Count 214 MPV 9.6 Neut % (Auto) 69.9 Lymph % (Auto) 22.3 [place] % (Auto) 6.8 Eos % (Auto) 0.6 Baso % (Auto) 0.5 Neut # (Auto) 4.9 Lymph # (Auto) 1.6 [place] # (Auto) 0.5 Eos # (Auto) 0.0 Baso # (Auto) 0.0 Sodium 138 Potassium 3.7 Chloride 103 Carbon Dioxide 29 Anion Gap 9.7 BUN 26 H Creatinine 1.30 H Estimated Creat Clear 41 Estimated GFR 39 L Est GFR ( Amer) 48 L Glucose 98 Hemoglobin A1c 5.6 Calcium 9.0 Magnesium 1.6 Total Bilirubin 0.8 AST 26 ALT 17 Alkaline Phosphatase 60 Troponin I 0.03 0.03 NT-Pro-B Natriuret Pep Total Protein 7.0 Albumin 3.6 Globulin 3.4 H Albumin/Globulin Ratio 1.1 TSH 2.60 Thyroxine (T4) Urine Color Urine Appearance Urine pH Ur Specific [place] Urine Protein Urine Glucose (UA) Urine Ketones Urine Blood Urine Nitrate Urine Bilirubin Urine Urobilinogen Ur Leukocyte Esterase Urine RBC Urine WBC Ur Squamous Epith Cells Urine Bacteria SARS-CoV-2 (PCR) Influenza A Untype (PCR) Influenza Type B (PCR) 07/28/23 07/28/23 07/28/23 15:09 15:03 14:53 WBC 8.1 RBC 3.97 L Hgb 12.0 L Hct 36.9 L MCV 92.8 MCH 30.1 MCHC 32.5 RDW 14.3 Plt Count 192 MPV 9.2 Neut % (Auto) 64.0 Lymph % (Auto) 25.7 [place] % (Auto) 9.0 Eos % (Auto) 0.6 Baso % (Auto) 0.8 Neut # (Auto) 5.2 Lymph # (Auto) 2.1 [place] # (Auto) 0.7 Eos # (Auto) 0.1 Baso # (Auto) 0.1 Sodium 139 Potassium 3.6 Chloride 102 Carbon Dioxide 29 Anion Gap 11.6 BUN 31 H Creatinine 1.20 H Estimated Creat Clear 39 Estimated GFR 43 L Est GFR ( Amer) 52 L Glucose 97 Hemoglobin A1c Calcium 9.2 Magnesium Total Bilirubin 0.6 AST 30 ALT 18 Alkaline Phosphatase 65 Troponin I 0.03 NT-Pro-B Natriuret Pep 1220 H Total Protein 7.6 Albumin 4.0 Globulin 3.6 H Albumin/Globulin Ratio 1.1 TSH 3.44 Thyroxine (T4) 5.7 Urine Color [place] Urine Appearance Clear Urine pH 6.0 Ur Specific [place] 1.020 Urine Protein Negative Urine Glucose (UA) Negative Urine Ketones Negative Urine Blood Negative Urine Nitrate Negative Urine Bilirubin Negative Urine Urobilinogen 1.0 Ur Leukocyte Esterase Trace Urine RBC None Urine WBC Occasional Ur Squamous Epith Cells Occasional Urine Bacteria None SARS-CoV-2 (PCR) Not detected Influenza A Untype (PCR) Not detected Influenza Type B (PCR) Not detected DS: Diagnosis Discharge Diagnosis (1) Acute pain of right shoulder: Status: Acute Code(s): M25.511 - Pain in right shoulder (2) Cholecystitis: Status: Acute Code(s): K81.9 - Cholecystitis, unspecified (3) Type 2 diabetes mellitus: Status: Chronic Code(s): E11.9 - Type 2 diabetes mellitus without complications (4) Hypertension: Status: Chronic Code(s): I10 - Essential (primary) hypertension Qualifiers: Hypertension type: essential hypertension Qualified Code(s): I10 - Essential (primary) hypertension (5) Hypothyroidism (acquired): Status: Chronic Code(s): E03.9 - Hypothyroidism, unspecified (6) Memory deficit: Status: Acute Code(s): R41.3 - Other amnesia (7) CAD (coronary artery disease), [place] coronary artery: Status: Acute Code(s): I25.10 - Atherosclerotic heart disease of [place] coronary artery without angina pectoris (8) Constipation: Status: Acute Code(s): K59.00 - Constipation, unspecified Meds Home Medications and Allergies Home Medications Medication Instructions Recorded Confirmed Type metoprolol tartrate 50 mg tablet 75 mg PO BID Hypertension 04/16/18 07/29/23 History isosorbide mononitrate 30 mg 30 mg PO TID Hypertension 09/30/19 07/29/23 History tablet,extended release 24 hr clonidine HCl 0.1 mg tablet 0.1 mg PO BID 10/08/20 07/29/23 History furosemide 20 mg tablet 20 mg PO DAILY High blood pressure 10/08/20 07/29/23 History aspirin 81 mg tablet,delayed 81 mg PO DAILY [facility] 03/22/23 07/29/23 Rx release tabs clopidogrel 75 mg tablet 75 mg PO DAILY platelet inhibitor 03/22/23 07/29/23 Rx #90 tabs hydrochlorothiazide 25 mg tablet 25 mg PO DAILY High blood pressure 03/22/23 07/29/23 Rx #90 tabs levothyroxine 25 mcg tablet 25 mcg PO DAILY #90 tabs 03/22/23 07/29/23 Rx (Synthroid) losartan 100 mg tablet 100 mg PO DAILY #90 tabs 05/04/23 07/29/23 Rx amoxicillin 875 mg-potassium 1 tab PO BID 5 days #10 tabs 07/29/23 Rx clavulanate 125 mg tablet nitroglycerin 0.4 mg sublingual 0.4 mg sublingual Q5MINP PRN Chest 07/29/23 07/29/23 History tablet Pain sennosides 8.6 mg-docusate sodium 1 tab PO BID PRN Constipation 30 07/29/23 Rx 50 mg tablet (Stimulant Laxative days #60 tabs Plus) New Prescriptions to Start Prescriptions: amoxicillin-pot clavulanate Fredy Meléndez sennosides-docusate sodium [Stimulant Laxative Plus] Fredy Meléndez Allergies Allergy/AdvReac Type Severity Reaction Status Date / Time morphine Allergy Intermediate Verified 05/04/23 14:15 phenobarbital Allergy Intermediate Verified 05/04/23 14:15 Discharge Plan Disposition Patient Disposition: Home, Self-Care Condition: Fair Follow up Plan Follow up with: Brayan Rosales MD [Staff Physician] - 1 week (Call on monday to schedule your follow up appointment with within a week. ) Ciro Campos MD [Primary Care Provider] - Enter time for follow up (Call on Monday to schedule your follow up appointment with your primary care provider within 2 weeks. ) Prescriptions/Medication Reconciliation: New sennosides-docusate sodium [Stimulant Laxative Plus] 8.6-50 mg Tablet 1 tab PO BID PRN (Reason: Constipation) 30 Days Qty: 60 0RF amoxicillin-pot clavulanate 875-125 mg tablet 1 tab PO BID 5 Days Qty: 10 0RF Continued isosorbide mononitrate 30 mg tablet extended release 24 hr 30 mg PO TID Rx Instructions: verified directions with pharmacy levothyroxine [Synthroid] 25 mcg tablet 25 mcg PO DAILY Qty: 90 3RF clopidogrel 75 mg tablet 75 mg PO DAILY Qty: 90 3RF aspirin 81 mg tablet,delayed release (DR/EC) 81 mg PO DAILY Qty: 100 10RF hydrochlorothiazide 25 mg tablet 25 mg PO DAILY Qty: 90 3RF losartan 100 mg tablet 100 mg PO DAILY Qty: 90 3RF nitroglycerin 0.4 mg tablet, sublingual 0.4 mg sublingual Q5MINP PRN (Reason: Chest Pain) metoprolol tartrate 50 MG tablet 75 mg PO BID clonidine HCl 0.1 MG tablet 0.1 mg PO BID furosemide 20 MG tablet 20 mg PO DAILY Problem Reconciliation Problems Reviewed?: Yes Patient Discharge Instructions ACTIVITY: Continue current activity DIET: continue same diet Patient Instructions: DI for Cholecystitis Providers Primary Care Provider: Ciro Campos Admit Provider: Fredy Meléndez Attending Provider: Fredy Meléndez
--- NOTE | 2023-07-29 15:05 | PC.NURSE ---
called pt's daughter to notify her that pt was being discharged. daughter is on her way
[2023-07-29 15:49] VITALS: BP 115/63; PULSE 82; RESP 17; TEMP 36.8; O2SAT 93
--- NOTE | 2023-08-01 12:28 | CARE MANAGER ---
Attempted to contact patient x2 related to hospital discharge. Left VM message. MOUNIKA Cutler
== END 2023-07-29 16:25 | disposition home or self-care (01) ==
LOC: ER 17:26 → 2ND 17:31
PROVIDERS: Admitting Provider Internal Medicine Adolescent Medicine; Emergency Provider Emergency Medicine; PCP Family Medicine; Visit Provider Internal Medicine Adolescent Medicine
DX: K81.0 Acute cholecystitis (principal); M25.511 Pain in right shoulder; E11.9 Type 2 diabetes mellitus without complications; I11.0 Hypertensive heart disease with heart failure; E03.9 Hypothyroidism, unspecified; R41.3 Other amnesia; I25.10 Atherosclerotic heart disease of native coronary artery without angina pectoris; K59.00 Constipation, unspecified; Z95.5 Presence of coronary angioplasty implant and graft; Z79.899 Other long term (current) drug therapy; R29.6 Repeated falls; I50.30 Unspecified diastolic (congestive) heart failure
CPT/HCPCS: 36415; 70450; 71045; 72125; 73030; 73060; 74177; 80053; 81001; 83036; 83735; 83880; 84436; 84443; 84484; 85025; 87636; 93005; 99285; G0378; J0131; J1650; J1940; J2405; J2543; Q9967

== ENCOUNTER 2023-09-23 17:48 | Emergency (ER) | payer MEDICARE, SELFPAY ==
--- NOTE | 2023-09-23 17:49 | ECG_ITS ---
APPROVED REPORT Exam: Resting ECG HR:81 bpm ECG Measurements Heart Rate 81 AXES VT 173 P 16 QRSd 89 QRS 1 QT 374 T 8 QTc 412 Conclusion SINUS RHYTHM WITH FREQUENT SUPRAVENTRICULAR PREMATURE COMPLEXES MODERATE VOLTAGE CRITERIA FOR LVH, CONSIDER NORMAL VARIANT [MEETS CRITERIA IN ONE OF: R(aVL), S(V1), R(V5), R(V5/V6)+S(V1)] NONSPECIFIC T-WAVE ABNORMALITY ABNORMAL RHYTHM ECG UNCONFIRMED REPORT Electronically signed by : LAURIE BOLDEN, 09/24/2023 06:48:21
--- NOTE | 2023-09-23 17:50 | XR_ITS ---
PROCEDURE INFORMATION: Exam: XR Chest Exam date and time: 09/23/2023 6:03 PM Age: 78 years old Clinical indication: Pain; Chest pressure; Additional info: Chest pain TECHNIQUE: Imaging protocol: Radiologic exam of the chest. Views: 1 view. COMPARISON: CR XR CHEST PORTABLE 07/28/2023 3:55 PM FINDINGS: Lungs: Unremarkable. Granulomatous changes. No consolidation. Pleural spaces: Unremarkable. No pleural effusion. No pneumothorax. Heart/Mediastinum: Unremarkable. No cardiomegaly. Bones/joints: Unremarkable. IMPRESSION: No acute findings.
--- NOTE | 2023-09-23 17:50 | CT_ITS ---
PROCEDURE INFORMATION: Exam: CT Head Without Contrast Exam date and time: 09/23/2023 6:07 PM Age: 78 years old Clinical indication: Injury or trauma; Fall; Blunt trauma (contusions or hematomas); Additional info: Fall posterior head struck TECHNIQUE: Imaging protocol: Computed tomography of the head without contrast. Radiation optimization: All CT scans at this facility use at least one of these dose optimization techniques: automated exposure control; mA and/or kV adjustment per patient size (includes targeted exams where dose is matched to clinical indication); or iterative reconstruction. COMPARISON: CT HEAD/BRAIN WO CON 07/28/2023 3:53 PM FINDINGS: Brain: Periventricular white matter tract changes demonstrated. Mild-moderate prominence of the cortical sulci. Chronic right caudate nucleus lacunar infarction Cerebral ventricles: No ventriculomegaly. Paranasal sinuses: Visualized sinuses are unremarkable. No fluid levels. Mastoid air cells: Visualized mastoid air cells are well aerated. Bones: Unremarkable. No acute fracture. Soft tissues: Unremarkable. Vasculature: Atherosclerotic calcification intracavernous portions internal carotid arteries. IMPRESSION: No evidence of acute intracranial abnormality.
[2023-09-23 17:52] VITALS: BP 135/55; PULSE 81; RESP 20; TEMP 36.9; O2SAT 97; BMI 30.6
--- NOTE | 2023-09-23 17:52 | CT_ITS ---
PROCEDURE INFORMATION: Exam: CT Cervical Spine Without Contrast Exam date and time: 09/23/2023 6:09 PM Age: 78 years old Clinical indication: Injury or trauma; Fall; Blunt trauma TECHNIQUE: Imaging protocol: Computed tomography of the cervical spine without contrast. Radiation optimization: All CT scans at this facility use at least one of these dose optimization techniques: automated exposure control; mA and/or kV adjustment per patient size (includes targeted exams where dose is matched to clinical indication); or iterative reconstruction. COMPARISON: CT CERVICAL SPINE WO CON 07/28/2023 3:53 PM FINDINGS: Bones: Cervical spondylosis with multilevel disc degeneration. Lungs: Lung apices are normal. Soft tissues: Unremarkable. IMPRESSION: No evidence of acute osseous injury.
--- NOTE | 2023-09-23 17:53 | ED_ITS ---
Discharge Plan Disposition Patient Disposition: Home, Self-Care Prescriptions Prescriptions: New amoxicillin-pot clavulanate 875-125 mg tablet 1 tab PO BID Qty: 20 0RF No Action isosorbide mononitrate 30 mg tablet extended release 24 hr 30 mg PO TID Rx Instructions: verified directions with pharmacy levothyroxine [Synthroid] 25 mcg tablet 25 mcg PO DAILY Qty: 90 3RF clopidogrel 75 mg tablet 75 mg PO DAILY Qty: 90 3RF aspirin 81 mg tablet,delayed release (DR/EC) 81 mg PO DAILY Qty: 100 10RF hydrochlorothiazide 25 mg tablet 25 mg PO DAILY Qty: 90 3RF losartan 100 mg tablet 100 mg PO DAILY Qty: 90 3RF nitroglycerin 0.4 mg tablet, sublingual 0.4 mg sublingual Q5MINP PRN (Reason: Chest Pain) sennosides-docusate sodium [Stimulant Laxative Plus] 8.6-50 mg Tablet 1 tab PO BID PRN (Reason: Constipation) 30 Days Qty: 60 0RF amoxicillin-pot clavulanate 875-125 mg tablet 1 tab PO BID 5 Days Qty: 10 0RF metoprolol tartrate 50 MG tablet 75 mg PO BID clonidine HCl 0.1 MG tablet 0.1 mg PO BID furosemide 20 MG tablet 20 mg PO DAILY Referrals Follow up/Referrals: Maico Bull MD [Staff Physician] - See instructions Fito Baugh MD [Staff Physician] - See instructions Activity Restrictions/Add. Instructions Additional Instructions/Restrictions: At this time it was felt you are safe to be discharged home. If new or worsening symptoms please do not hesitate to return the emergency department. Can schedule appoint with Dr. 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 You have a 3.5 cm spot on the right lower lobe of your lung which we need to keep an eye on, please follow-up with your family doctor within the next week or 2 to help coordinate care for this as well as to ensure that your ear infection is resolving. Your Potassium was a little bit low today, make sure your family doctor keeps an eye on it. Clinical Impressions Clinical Impression: Chest pain, Otitis media, Lesion of lung, Hypokalemia Print Language Print Language: [place] Discharge ED Provider: Anders,Maximo G HPI General Chief Complaint: Chest Pain Stated Complaint: CHEST PAIN Time Seen by Provider: 09/23/23 17:50 History of Present Illness HPI narrative: Patient is a 78-year-old female with past medical history of [id number] diabetes, coronary artery disease, hypertension who presents emergency department for evaluation of multiple complaints. Her first complaint is chest pain which is what brought her to the emergency department today, it is substernal, onset was yesterday, does not radiate through to her back. It is left-sided as well. No worsening factors reported. She has had chest pain before. She has no stents according the patient. Supplemental history is also provided by daughter as patient is poor historian. Second complaint is that she has frequent ear infections and wants her left ear checked. She has had pressure and pain in her ear over the last day. She also has knots on the back of her head from when she fell 2 weeks ago without loss of consciousness however has had a persistent posterior headache since. She has been ambulatory since and has no additional falls. Related Data Home Medications ?Medication ?Instructions ?Recorded ?Confirmed metoprolol tartrate 50 mg tablet 75 mg PO BID Hypertension 04/16/18 07/29/23 isosorbide mononitrate 30 mg 30 mg PO TID Hypertension 09/30/19 07/29/23 tablet,extended release 24 hr clonidine HCl 0.1 mg tablet 0.1 mg PO BID 10/08/20 07/29/23 furosemide 20 mg tablet 20 mg PO DAILY High blood pressure 10/08/20 07/29/23 nitroglycerin 0.4 mg sublingual 0.4 mg sublingual Q5MINP PRN Chest 07/29/23 07/29/23 tablet Pain Previous Rx's ?Medication ?Instructions ?Recorded aspirin 81 mg tablet,delayed 81 mg PO DAILY [facility] 03/22/23 release tabs clopidogrel 75 mg tablet 75 mg PO DAILY platelet inhibitor 03/22/23 #90 tabs hydrochlorothiazide 25 mg tablet 25 mg PO DAILY High blood pressure 03/22/23 #90 tabs levothyroxine 25 mcg tablet 25 mcg PO DAILY #90 tabs 03/22/23 (Synthroid) losartan 100 mg tablet 100 mg PO DAILY #90 tabs 05/04/23 amoxicillin 875 mg-potassium 1 tab PO BID 5 days #10 tabs 07/29/23 clavulanate 125 mg tablet sennosides 8.6 mg-docusate sodium 1 tab PO BID PRN Constipation 30 07/29/23 50 mg tablet (Stimulant Laxative days #60 tabs Plus) amoxicillin 875 mg-potassium 1 tab PO BID otitis media #20 tabs 09/23/23 clavulanate 125 mg tablet Allergies Allergy/AdvReac Type Severity Reaction Status Date / Time morphine Allergy Intermediate Verified 05/04/23 14:15 phenobarbital Allergy Intermediate Verified 05/04/23 14:15 prochlorperazine AdvReac akathesia Verified 09/23/23 20:27 [From Compazine] [facility] Disclaimer: The information contained in this section may have been updated after the patient was seen, as this information can be updated by other users. Medical History Noncompliance with medication regimen Edema of right lower extremity CAD (coronary artery disease), mechoopda coronary artery Memory deficit Type 2 diabetes mellitus Hypertension Hypothyroidism (acquired) Rhabdomyolysis Neck pain Renal failure Sciatic leg pain Abdominal pain Surgical History Hx of right coronary artery stent placement Family History Other Cancer Diabetes Kidney disease Social History Smoking Status: Former smoker tobacco type: cigarettes alcohol intake: never substance use type: denies use current occupational status: retired Travel in the last 8 weeks: None household members: none caffeine: Yes ROS Obtained: Yes Systems reviewed as appropriate & no additional complaints except as documented Physical Exam General General appearance: alert and in no apparent distress Head Head exam: normocephalic and other (2 palpable nodular areas over the right vertex) Eye Eye exam: Present PERRL and EOMI ENT ENT exam: Present mucous membranes moist and other (No anterior effacement of the pinna, no retroauricular swelling bilaterally.); Absent TM's normal bilaterally (Left-sided purulent middle ear effusion) Neck Neck exam: Present normal inspection Chest Chest inspection: Present normal inspection and symmetric chest wall rise Respiratory Respiratory exam: Present normal lung sounds bilaterally; Absent respiratory distress Cardiovascular Cardiovascular exam: Present regular rate and normal rhythm Abdominal Exam Abdominal exam: Present soft; Absent tenderness Extremities Exam Extremities exam: Present normal inspection Neurological Exam Neurological exam: Present alert Psychiatric Psychiatric exam: Present normal affect Skin Skin exam: Present warm and dry HEART Score HEART Score HEART Score assessment performed?: Yes History (anamnesis): Moderately suspicious ECG: Non-specific disturbance Age: >65 years Risk factors: 1-2 risk factors Troponin: </= normal limit HEART Score: 5 Critical Care Critical Care Time Critical Care Time: No Medical Decision Making Deon Inquiry Pt receiving controlled substance: No Vital Signs Vital Signs: 09/23/23 17:52 09/23/23 18:00 09/23/23 18:30 Temperature 98.5 F Temperature Source Oral Pulse Rate 80 72 Pulse Rate [Left Radial] 81 Respiratory Rate 20 Blood Pressure 132/77 154/62 H Blood Pressure [Right Arm] 135/55 L Blood Pressure Mean [Right Arm] 81 Blood Pressure Source Blood Pressure Position 02 Sat by Pulse Oximetry 97 98 97 Oxygen Delivery Method Room Air Room Air Room Air 09/23/23 19:00 09/23/23 19:58 Temperature Temperature Source Pulse Rate 72 66 Pulse Rate [Left Radial] Respiratory Rate 20 Blood Pressure 122/88 154/54 H Blood Pressure [Right Arm] Blood Pressure Mean [Right Arm] Blood Pressure Source Automatic Cuff Blood Pressure Position Supine 02 Sat by Pulse Oximetry 95 93 L Oxygen Delivery Method Room Air Room Air Lab Data Labs: Lab Results 09/23/23 17:56: WBC 7.2, RBC 4.04 L, Hgb 12.4, Hct 38.2, MCV 94.7, MCH 30.7, MCHC 32.4, RDW 14.7, Plt Count 192, MPV 9.0, Neut % (Auto) 68.1, Lymph % (Auto) 24.5, Nelson % (Auto) 5.3, Eos % (Auto) 1.1, Baso % (Auto) 1.0, Neut # (Auto) 4.9, Lymph # (Auto) 1.8, Nelson # (Auto) 0.4, Eos # (Auto) 0.1, Baso # (Auto) 0.1, D- Dimer 0.99 H, Sodium 139, Potassium 3.3 L, Chloride 103, Carbon Dioxide 28, Anion Gap 11.3, BUN 27 H, Creatinine 0.90, Estimated Creat Clear 56, Estimated GFR 60, Est GFR ( Amer) 73, Glucose 121 H, Calcium 8.8, Total Bilirubin 0.6, AST 38 H, ALT 21, Alkaline Phosphatase 59, Troponin I 0.02, Total Protein 7.4, Albumin 4.0, Globulin 3.4 H, Albumin/Globulin Ratio 1.2, Lipase 163 09/23/23 21:05: Troponin I 0.02 09/23/23 17:56 09/23/23 17:56 Response Orders (Tests/Meds): ED MEDICATIONS Generic Name Dose Route Start Last Admin Trade Name Freq PRN Reason Stop Dose Admin Nitroglycerin 0.4 mg 09/23/23 17:50 Nitroglycerin 0.4mg Sl Tablet SL 10/23/23 17:49 Q5MINP PRN Chest Pain Discontinued Medications Generic Name Dose Route Start Last Admin Trade Name Freq PRN Reason Stop Dose Admin Acetaminophen 1,000 mg 09/23/23 17:50 09/23/23 18:18 Acetaminophen 1,000mg/100ml Vial IV 09/23/23 17:51 1,000 mg ONCE ONE Administration Amoxicillin/Clavulanate Potassium 1 each 09/23/23 20:46 09/23/23 20:59 Amoxicillin/Clavulanate Potassium 875/125mg Tablet PO 09/23/23 20:47 1 each ONCE ONE Administration Aspirin 324 mg 09/23/23 19:34 09/23/23 19:43 Aspirin 81mg Chewable Tablet PO 09/23/23 19:35 324 mg ONCE ONE Administration Diphenhydramine HCl 25 mg 09/23/23 19:32 09/23/23 19:52 Diphenhydramine 50mg/Ml Vial IV 09/23/23 19:33 25 mg ONCE ONE Administration Iopamidol 75 ml 09/23/23 19:20 09/23/23 19:25 Iopamidol-370 (76%);100ml Bottle IV 09/23/23 19:21 75 ml ONCE ONE Administration Potassium Chloride 40 meq 09/23/23 19:37 09/23/23 20:10 Potassium Chloride 20meq Tab PO 09/23/23 19:38 40 meq ONCE ONE Administration Prochlorperazine Edisylate 5 mg 09/23/23 19:32 09/23/23 19:49 Prochlorperazine 10mg/2ml Vial IV 09/23/23 19:33 5 mg ONCE ONE Administration Sodium Chloride 50 ml 09/23/23 19:20 09/23/23 19:25 0.9 % Sodium Chloride 50 Ml Vial IV 09/23/23 19:21 50 ml ONCE ONE Administration ORDERS Category Date Time Status CT angio chest - dissection Stat Cat Scan 09/23/23 18:[address] cervical spine wo con Stat Cat Scan 09/23/23 17:[address] head/brain wo con Stat Cat Scan 09/23/23 17:50 Completed CXR --portable [XR chest portable] Stat Exams 09/23/23 17:50 Completed CBC w/Auto Diff [Complete Blood Count Auto Diff] Stat Lab 09/23/23 17:56 Completed CMP [Comprehensive Metabolic Panel] Stat Lab 09/23/23 17:56 Completed D-Dimer Stat Lab 09/23/23 17:56 Completed Lipase Stat Lab 09/23/23 17:56 Completed Troponin I Q3H Lab 09/23/23 21:05 Completed Troponin I Q3H Lab 09/24/23 00:00 Ordered Troponin I Stat Lab 09/23/23 17:56 Completed ECG Data Tracing #1: ECG Narrative: Independently interpreted by me rate is 81, rhythm is regular, axis normal, no ST elevation in anatomical contiguous leads, QTc 412. Tracing #2: ECG Narrative: Independently interpreted by me rate is 66, rhythm is regular, axis normal, no ST elevation in anatomical contiguous leads, QTc 422. MDM Narrative Medical Decision Narrative: In summary patient is a 78-year-old female with past medical history described above who presents emergency department for evaluation of multiple complaints. Patient is hemodynamically stable nontoxic-appearing upon arrival, afebrile. With respect to her chest pain differential includes ACS, noncardiac chest pain, pulmonary embolism, among others. Workup with this will be conducted with chest x-ray, EKG, hematologic labs, serial troponins, D-dimer. Initial inventions include Tylenol, nitroglycerin. With respect to fall and posterior head trauma she does have some hematomas over her scalp for which noncontrasted CT scan of the head and cervical spine will be ordered given that intracranial hemorrhage is on the differential. Clinically she has a left-sided otitis media which will require antibiotics. Noncontrasted CT scan of the head and cervical spine no intracranial abnormality or acute cervical spine fracture. Patient will now be given 324 mg of chewable aspirin for her chest pain. Hematologic labs reviewed by me and are remarkable for elevated D-dimer for which CTA chest will be ordered. Mild hypokalemia which will be repleted orally. Initial troponin 0.02 consistent with previous readings, lipase normal. Upon repeat evaluation patient has a persistent headache for which Phenergan and diphenhydramine will be administered. CTA chest shows no pulmonary embolism, nonspecific findings that likely reflect interstitial lung disease, pleural-based soft tissue mass in the right lower lobe measuring 3.5 cm which patient was made aware. Upon repeat evaluation patient is having uncontrollable urge to move and creepy crawling sensation consistent with akathisia from her Compazine. This is unfortunate however it should subside in the next few hours. Patient will be given first dose of Augmentin for otitis media while we are waiting. Serial troponins have no significant delta, serial EKGs have no dynamic changes. On repeat evaluation patient was sitting comfortably in bed with resolution of akathisia. Given this patient is appropriate for outpatient management at this time.
[2023-09-23 18:00] VITALS: BP 132/77; PULSE 80; O2SAT 98
[2023-09-23 18:16] LABS: Basophils # 0.1 K/mm3 (0-0.2); Eosinophils # 0.1 K/mm3 (0.0-0.4); Eosinophils % 1.1 % (0.1-12.0); Hematocrit 38.2 % (37.0-47.0); Hemoglobin 12.4 g/dL (12.2-16.2); Lymphocytes # 1.8 K/mm3 (0.7-4.5); Lymphocytes % 24.5 % (10-50); Mean Corpuscular HGB Conc 32.4 g/dL (31.8-35.4); Mean Corpuscular Hemoglobin 30.7 pg (27.0-31.2); Mean Corpuscular Volume 94.7 fl (81-99); Monocytes # 0.4 K/mm3 (0.1-1.0); Monocytes % 5.3 % (1.7-9.3); Neutrophils # 4.9 K/mm3 (1.8-7.8); Neutrophils % 68.1 % (37.0-80.0); Platelet Count 192 K/mm3 (142-424); Red Blood Count 4.04 M/mm3 (4.20-5.40); Red Cell Distribution Width 14.7 % (11.5-17.5); White Blood Count 7.2 K/mm3 (4.8-10.8)
[2023-09-23] MEDS: ACETAMINOPHEN 1,000MG/100ML VIAL 1000 MG IV (18:18)
[2023-09-23 18:27] LABS: Alanine Aminotransferase 21 U/L (12-78); Albumin/Globulin Ratio 1.2 (1.1-1.8); Alkaline Phosphatase 59 U/L (38-126); Anion Gap 11.3 mEq/L (5-15); Aspartate Amino Transferase 38 U/L (14-36); Bilirubin,Total 0.6 mg/dl (0.2-1.3); Blood Urea Nitrogen 27 mg/dl (7-17); Calcium 8.8 mg/dl (8.4-10.2); Carbon Dioxide 28 mmol/L (22.0-30.0); Chloride 103 mmol/L (98-107); Creatinine Clearance Estimated 56 mL/min (50-200); Estimated Glomerular Filt Rate 60 ml/min (>60); GFR (African American) 73 ML/MIN (>60); Globulin 3.4 g/dL (1.3-3.2); Glucose 121 mg/dl (74-100); Lipase 163 U/L (23-300); Potassium 3.3 mmoL/L (3.5-5.1); Sodium 139 mmol/L (136-145); Total Protein,Serum 7.4 g/dl (6.3-8.2)
[2023-09-23 18:30] VITALS: BP 154/62; PULSE 72; O2SAT 97
[2023-09-23 18:32] LABS: D-Dimer 0.99 ug/mL (0.0-0.5)
[2023-09-23 18:40] LABS: Troponin I 0.02 ng/ml (0.00-0.034)
--- NOTE | 2023-09-23 18:56 | CT_ITS ---
PROCEDURE INFORMATION: Exam: CTA Chest With Contrast Exam date and time: 09/23/2023 7:22 PM Age: 78 years old Clinical indication: Abnormal findings; Abnormal diagnostic tests; Elevated d-dimer; Additional info: Cp/elevated dimer TECHNIQUE: Imaging protocol: Computed tomographic angiography of the chest with contrast. Exam focused on the arteries. 3D rendering (Not supervised by radiologist): MIP and/or 3D reconstructed images were created by the technologist. Radiation optimization: All CT scans at this facility use at least one of these dose optimization techniques: automated exposure control; mA and/or kV adjustment per patient size (includes targeted exams where dose is matched to clinical indication); or iterative reconstruction. Contrast material: ISO 370; Contrast volume: 100 ml; Contrast route: INTRAVENOUS (IV); COMPARISON: CT ANGIO CHEST PE PROTOCOL 04/12/2022 2:15 PM FINDINGS: Pulmonary arteries: There is suboptimal opacification of pulmonary arteries due to contrast bolus timing. Aorta: Regions of atherosclerotic vascular calcification involving the aortic arch. Lungs: Calcified granuloma right lung base. Bilateral ground-glass regions of opacification. Findings nonspecific however most likely reflect interstitial lung disease. An acute inflammatory process could not be entirely excluded. Pleural spaces: Somewhat nodular pleural based region of consolidation measuring approximately 3.5 cm in transverse dimensions. This may correspond to residual region of atelectasis. Faint air bronchograms are demonstrated extending into this region. Findings are new. Heart: Unremarkable. No cardiomegaly. No pericardial effusion. Coronary arteries: Extensive coronary artery calcification Lymph nodes: The calcified right hilar lymph nodes Diaphragm: Small hiatal hernia Bones/joints: Thoracic spondylosis with multilevel disc degeneration. Soft tissues: Unremarkable. IMPRESSION: 1. No large or central pulmonary embolus. Evaluation of the peripheral pulmonary arteries is limited.Bilateral ground-glass regions of opacification. Findings nonspecific however most likely reflect interstitial lung disease. An acute inflammatory process could not be entirely excluded. 2. Pleural-based soft tissue mass like region right lower lobe measuring approximately 3.5 cm in transverse dimensions. Findings may be inflammatory. An underlying malignancy could not be excluded. Findings new. 3. For both low risk and high risk patients, consider CT Chest at 3 months, PET/CT, or biopsy. (Reference: Sergio) REFERENCES: Sergio Little et al. Guidelines for Management of Incidental Pulmonary Nodules Detected on CT Images: From the Fleischner Society 2017. Radiology. 2017;284(1):228-243.
[2023-09-23 19:00] VITALS: BP 122/88; PULSE 72; O2SAT 95
[2023-09-23] MEDS: IOPAMIDOL-370 (76%);100ML BOTTLE 75 ML IV (19:25)
[2023-09-23] MEDS: 0.9 % SODIUM CHLORIDE 50 ML VIAL IV (19:25)
[2023-09-23] MEDS: ASPIRIN 81MG CHEWABLE TABLET 324 MG PO (19:43)
[2023-09-23] MEDS: PROCHLORPERAZINE 10MG/2ML VIAL 5 MG IV (19:49)
[2023-09-23] MEDS: diphenhydrAMINE 50MG/ML VIAL 25 MG IV (19:52)
[2023-09-23 19:58] VITALS: BP 154/54; PULSE 66; RESP 20; O2SAT 93
[2023-09-23] MEDS: POTASSIUM CHLORIDE 20MEQ TAB 40 MEQ PO (20:10)
--- NOTE | 2023-09-23 20:24 | PC.NURSE ---
Pt. became agitated and twitching after the Compazine and Benadryl. Pt. was still complains of overall body ache and headache. Pt. having a hard time sitting still. Family at bedside. Dr. Anders notified.
[2023-09-23] MEDS: AMOXICILLIN/CLAVULANATE POTASSIUM 875/125MG TABLET 1 EACH PO (20:59)
[2023-09-23 21:48] LABS: Troponin I 0.02 ng/ml (0.00-0.034)
--- NOTE | 2023-09-23 22:00 | ECG_ITS ---
APPROVED REPORT Exam: Resting ECG HR:66 bpm ECG Measurements Heart Rate 66 AXES OH 182 P 64 QRSd 93 QRS 2 QT 409 T 17 QTc 422 Conclusion SINUS RHYTHM WITH OCCASIONAL SUPRAVENTRICULAR PREMATURE COMPLEXES BORDERLINE ECG UNCONFIRMED REPORT Electronically signed by : LAURIE BOLDEN, 09/24/2023 06:47:21
[2023-09-23 22:39] VITALS: BP 154/51; PULSE 72; RESP 18; TEMP 36.6; O2SAT 90
== END 2023-09-23 22:15 | disposition home or self-care (01) ==
PROVIDERS: Emergency Provider Emergency Medicine; PCP Family Medicine
DX: R07.9 Chest pain, unspecified (principal); E87.6 Hypokalemia; H66.92 Otitis media, unspecified, left ear; R91.8 Other nonspecific abnormal finding of lung field; E11.9 Type 2 diabetes mellitus without complications; E03.9 Hypothyroidism, unspecified; I11.9 Hypertensive heart disease without heart failure; I25.10 Atherosclerotic heart disease of native coronary artery without angina pectoris; Z95.5 Presence of coronary angioplasty implant and graft
CPT/HCPCS: 70450; 71045; 71275; 72125; 80053; 83690; 84484; 85025; 85378; 93005; 96374; 96375; 99285; J0131; J0780; J1200; Q9967

== ENCOUNTER 2023-11-15 22:49 | Observation (INO) | payer MEDICARE, SELFPAY ==
[2023-11-15 22:50] VITALS: BP 183/85; PULSE 96; RESP 17; TEMP 36.6; O2SAT 96; BMI 29.0
--- NOTE | 2023-11-15 23:11 | CT_ITS ---
PROCEDURE INFORMATION: Exam: CT Abdomen And Pelvis With Contrast Exam date and time: 11/15/2023 11:53 PM Age: 78 years old Clinical indication: Abdominal pain; Additional info: Epigastric/ruq pain TECHNIQUE: Imaging protocol: Computed tomography of the abdomen and pelvis with contrast. Radiation optimization: All CT scans at this facility use at least one of these dose optimization techniques: automated exposure control; mA and/or kV adjustment per patient size (includes targeted exams where dose is matched to clinical indication); or iterative reconstruction. Contrast material: ISOVUE; Contrast volume: 75 ml; Contrast route: IV; COMPARISON: 1. CT ABDOMEN PELVIS W CON 07/28/2023 3:[address] ABDOMEN PELVIS WO CON 10/07/2020 8:[address] abdomen pelvis wo con 07/29/2017 9:36 PM FINDINGS: Lungs: Scattered areas of bronchial wall thickening which are likely chronic inflammatory. A few areas of subpleural reticulation are noted, nonspecific. Parenchymal consolidations at the bases could be on the basis of atelectasis but underlying infection is not completely excluded. Coronary arteries: There is moderate coronary atherosclerotic disease/calcification although evaluation is limited secondary to the non gated nature of the study. Liver: Normal. Gallbladder and biliary ducts: The gallbladder is partially collapsed and thick-walled, stable in appearance from prior. Correlate with any concern for chronic cholecystitis. There is mild central intrahepatic biliary ductal dilatation which is new from comparison and correlation with laboratory studies is suggested. Pancreas: Normal. Spleen: Normal. Adrenal glands: The adrenal glands appear normal. Kidneys and ureters: There is nonspecific bilateral perinephric stranding. Stomach and bowel: There are scattered colonic diverticula. Appendix: No evidence of appendicitis. Intraperitoneal space: Unremarkable. Vasculature: There is atherosclerotic disease of the visualized aorta and its major branch vessels. Lymph nodes: There are mildly prominent but nonenlarged and nonspecific retroperitoneal nodes. Mildly prominent nodes in the central mesentery, nonspecific. Urinary bladder: There is mild bladder wall thickening, possibly due to under distention and a nonspecific finding. Reproductive: No acute process. Bones/joints: There is diffuse degenerative disease of the visualized osseous structures. There is exaggeration of the spinal curvature. There is diffuse osseous demineralization. Soft tissues: There are calcifications within the buttocks which most likely reflect injection granulomas. Laxity of the ventral abdominal wall consistent with diastasis recti. IMPRESSION: 1. The gallbladder is partially collapsed and thick-walled, stable in appearance from prior. Correlate with any concern for chronic cholecystitis. 2. There is mild central intrahepatic biliary ductal dilatation which is new from comparison and correlation with laboratory studies is suggested. 3. Parenchymal consolidations at the bases could be on the basis of atelectasis but underlying infection is not completely excluded.
[2023-11-15] MEDS: LIDOCAINE 2% VISCOUS SOL 15ML UDC 15 ML PO (23:17)
--- NOTE | 2023-11-15 23:17 | HMH.EDGENADL ---
Discharge Plan Disposition Patient Disposition: Admitted Prescriptions Prescriptions: No Action isosorbide mononitrate 30 mg tablet extended release 24 hr 30 mg PO TID Rx Instructions: verified directions with pharmacy levothyroxine [Synthroid] 25 mcg tablet 25 mcg PO DAILY Qty: 90 3RF clopidogrel 75 mg tablet 75 mg PO DAILY Qty: 90 3RF aspirin 81 mg tablet,delayed release (DR/EC) 81 mg PO DAILY Qty: 100 10RF hydrochlorothiazide 25 mg tablet 25 mg PO DAILY Qty: 90 3RF losartan 100 mg tablet 100 mg PO DAILY Qty: 90 3RF nitroglycerin 0.4 mg tablet, sublingual 0.4 mg sublingual Q5MINP PRN (Reason: Chest Pain) sennosides-docusate sodium [Stimulant Laxative Plus] 8.6-50 mg Tablet 1 tab PO BID PRN (Reason: Constipation) 30 Days Qty: 60 0RF amoxicillin-pot clavulanate 875-125 mg tablet 1 tab PO BID 5 Days Qty: 10 0RF amoxicillin-pot clavulanate 875-125 mg tablet 1 tab PO BID Qty: 20 0RF metoprolol tartrate 50 MG tablet 75 mg PO BID clonidine HCl 0.1 MG tablet 0.1 mg PO BID furosemide 20 MG tablet 20 mg PO DAILY Referrals Follow up/Referrals: Ciro Campos MD [Primary Care Provider] - See instructions Clinical Impressions Clinical Impression: Cholecystitis, acute, Acute UTI Instructions Patient Instructions: DI for Acute Abdominal Pain Print Language Print Language: [place] Discharge ED Provider: Ihsan Constantino Adult HPI General Chief complaint: Abdominal Pain Stated complaint: abdominal pain Time Seen by Provider: 11/15/23 23:00 Mode of Arrival: Ambulatory Source of Information: Patient and Relative Limitations: No Limitations Description of Symptoms (Recalled from ER Triage Doc. by RN): 78 F presents from home with acute epigastric and RUQ pain that began earlier today. Patient reports this worsens with movement and palpation. Patient adds she has nausea and soft stool which also started today. History of Present Illness HPI narrative: 78-year-old female with history of coronary artery disease status post stents, type 2 diabetes, obesity presents for nausea, epigastric and right upper quadrant pain. She denies any chest pain or shortness of breath. Symptoms been ongoing since this morning. Denies fever at home. Patient is a poor historian. Family in room are helpful but are not aware of all her medical issues. Upon chart review, she was admitted 3 months ago for right shoulder pain after a CT scan showed some gallbladder wall thickening. She was given antibiotics and was ultimately discharged without intervention. Related Data Home Medications ?Medication ?Instructions ?Recorded ?Confirmed metoprolol tartrate 50 mg tablet 75 mg PO BID Hypertension 04/16/18 07/29/23 isosorbide mononitrate 30 mg 30 mg PO TID Hypertension 09/30/19 07/29/23 tablet,extended release 24 hr clonidine HCl 0.1 mg tablet 0.1 mg PO BID 10/08/20 07/29/23 furosemide 20 mg tablet 20 mg PO DAILY High blood pressure 10/08/20 07/29/23 nitroglycerin 0.4 mg sublingual 0.4 mg sublingual Q5MINP PRN Chest 07/29/23 07/29/23 tablet Pain Previous Rx's ?Medication ?Instructions ?Recorded aspirin 81 mg tablet,delayed 81 mg PO DAILY [facility] 03/22/23 release tabs clopidogrel 75 mg tablet 75 mg PO DAILY platelet inhibitor 03/22/23 #90 tabs hydrochlorothiazide 25 mg tablet 25 mg PO DAILY High blood pressure 03/22/23 #90 tabs levothyroxine 25 mcg tablet 25 mcg PO DAILY #90 tabs 03/22/23 (Synthroid) losartan 100 mg tablet 100 mg PO DAILY #90 tabs 05/04/23 amoxicillin 875 mg-potassium 1 tab PO BID 5 days #10 tabs 07/29/23 clavulanate 125 mg tablet sennosides 8.6 mg-docusate sodium 1 tab PO BID PRN Constipation 30 07/29/23 50 mg tablet (Stimulant Laxative days #60 tabs Plus) amoxicillin 875 mg-potassium 1 tab PO BID otitis media #20 tabs 09/23/23 clavulanate 125 mg tablet Allergies Allergy/AdvReac Type Severity Reaction Status Date / Time morphine Allergy Intermediate Verified 05/04/23 14:15 phenobarbital Allergy Intermediate Verified 05/04/23 14:15 prochlorperazine AdvReac akathesia Verified 09/23/23 20:27 [From Compazine] [facility] Disclaimer: The information contained in this section may have been updated after the patient was seen, as this information can be updated by other users. Medical History Noncompliance with medication regimen Edema of right lower extremity CAD (coronary artery disease), [place] coronary artery Memory deficit Type 2 diabetes mellitus Hypertension Hypothyroidism (acquired) Rhabdomyolysis Neck pain Renal failure Sciatic leg pain Abdominal pain Surgical History Hx of right coronary artery stent placement Family History Other Cancer Diabetes Kidney disease Social History Smoking Status: Never smoker alcohol intake: never substance use type: denies use current occupational status: retired Travel in the last 8 weeks: None household members: none caffeine: Yes ROS Obtained: Yes All systems reviewed & no additional complaints except as documented Physical Exam General General appearance: alert and in no apparent distress Head Head exam: atraumatic and normocephalic Eye Eye exam: Present normal appearance, PERRL and EOMI ENT ENT exam: Present normal oropharynx and normal external ear exam Neck Neck exam: Present normal inspection and full ROM Chest Chest inspection: Present normal inspection and symmetric chest wall rise; Absent tenderness Respiratory Respiratory exam: Present normal lung sounds bilaterally; Absent respiratory distress Cardiovascular Cardiovascular exam: Present regular rate and normal rhythm Abdominal Exam Abdominal exam: Present soft and tenderness (Mild epigastric, right upper quadrant); Absent distention or guarding Extremities Exam Extremities exam: Present normal inspection; Absent edema or joint swelling Back Exam Back exam: Present normal inspection; Absent tenderness Neurological Exam Neurological exam: Present alert and oriented X3; Absent motor sensory deficit Psychiatric Psychiatric exam: Present normal affect and normal mood Skin Skin exam: Present warm, dry and normal color Lymphatic Lymphatic Findings: no adenopathy Medical Decision Making Medical Records Medical records reviewed: Yes I reviewed the patient's medical records. Screening: Per USPSTF and CDC recommendations, given the prevalence of disease in our region, it is our hospital?s policy to screen for HIV and viral Hepatitis for all patients aged 18 and over and those with ongoing risk factors. Deon Inquiry Pt receiving controlled substance: No Deon was queried for this patient: No Vital Signs: 11/15/23 22:50 11/15/23 23:24 Temperature 97.9 F Temperature Source Oral Pulse Rate 79 Pulse Rate [Left] 96 H Respiratory Rate 17 18 Blood Pressure 187/73 H Blood Pressure [Right Arm] 183/85 H Blood Pressure Mean 111 Blood Pressure Mean [Right Arm] 117 Blood Pressure Source [Right Arm] Automatic Cuff Blood Pressure Position [Right Arm] Sitting 02 Sat by Pulse Oximetry 96 96 Oxygen Delivery Method Room Air Room Air Lab Data Lab results reviewed: Yes I reviewed the patient's lab results. Lab Results 11/15/23 23:04: Urine Color Yellow, Urine Appearance Clear, Urine pH 6.0, Ur Specific [place] 1.015, Urine Protein Negative, Urine Glucose (UA) Negative, Urine Ketones Negative, Urine Blood Negative, Urine Nitrate Negative, Urine Bilirubin Negative, Urine Urobilinogen 1.0, Ur Leukocyte Esterase 2+ A, Urine RBC 3-5, Urine WBC 20-50, Ur Squamous Epith Cells 10-20, Urine Bacteria 1+ 11/15/23 23:17: WBC 5.7, RBC 4.46, Hgb 13.9, Hct 42.4, MCV 95.1, MCH 31.2, MCHC 32.8, RDW 14.2, Plt Count 284, MPV 9.1, Neut % (Auto) 58.3, Lymph % (Auto) 29.4, [place] % (Auto) 8.9, Eos % (Auto) 2.1, Baso % (Auto) 1.2, Neut # (Auto) 3.3, Lymph # (Auto) 1.7, [place] # (Auto) 0.5, Eos # (Auto) 0.1, Baso # (Auto) 0.1, Sodium 137, Potassium 4.2, Chloride 105, Carbon Dioxide 28, Anion Gap 8.2, BUN 22 H, Creatinine 0.80, Estimated Creat Clear 53, Estimated GFR 69, Est GFR ( Amer) 84, Glucose 119 H, Calcium 9.7, Total Bilirubin 0.6, AST 39 H, ALT 22, Alkaline Phosphatase 64, Troponin I 0.03, Total Protein 7.9, Albumin 4.3, Globulin 3.6 H, Albumin/Globulin Ratio 1.2, Lipase 87, HIV 1&2 Antibody Rapid Nonreactive 11/15/23 23:17 11/15/23 23:17 Orders (Tests/Meds): ED MEDICATIONS Generic Name Dose Route Start Last Admin Trade Name Freq PRN Reason Stop Dose Admin Piperacillin Sod/Tazobactam 100 mls @ 200 mls/hr 11/16/23 01:05 Sod 4.5 gm/ Sodium Chloride IV 11/16/23 01:34 ONCE ONE Sodium Chloride 10 ml 11/15/23 23:55 11/15/23 23:55 Sodium Chloride 0.9% 10ml Syr (Rad Only) IV 12/15/23 23:54 10 ml NEEDED PRN Administration Maintain IV Site Discontinued Medications Generic Name Dose Route Start Last Admin Trade Name Fredi PRN Reason Stop Dose Admin Acetaminophen 1,000 mg 11/15/23 23:11 11/15/23 23:18 Acetaminophen 500mg Tab PO 11/15/23 23:12 1,000 mg ONCE ONE Administration Iopamidol 75 ml 11/15/23 23:55 11/15/23 23:55 Iopamidol-370 (76%);100ml Bottle IV 11/15/23 23:56 75 ml ONCE ONE Administration Lidocaine HCl 15 ml 11/15/23 23:11 11/15/23 23:17 Lidocaine 2% Viscous Kimberly 15ml Udc PO 11/15/23 23:12 15 ml ONCE ONE Administration Ondansetron HCl 4 mg 11/15/23 23:11 11/15/23 23:18 Ondansetron 4mg/2ml Vial IV 11/15/23 23:12 4 mg ONCE ONE Administration ORDERS Category Date Time Status CT abdomen pelvis w con Stat Cat Scan 11/15/23 23:11 Completed Consult to General Surgery [CONS] Stat Cons 11/16/23 01:05 Ordered CBC w/Auto Diff [Complete Blood Count Auto Diff] Stat Lab 11/15/23 23:17 Completed CMP [Comprehensive Metabolic Panel] Stat Lab 11/15/23 23:17 Completed HIV (1&2) Antibody Rapid Stat Lab 11/15/23 23:17 Completed Hep C Ab with Reflex to RNA Stat Lab 11/15/23 23:17 Received Lipase Stat Lab 11/15/23 23:17 Completed Troponin I Q3H Lab 11/15/23 23:17 Completed Troponin I Q3H Lab 11/16/23 02:15 Ordered UA [Urinalysis and Microscopic] Stat Lab 11/15/23 23:04 Completed Blood Culture Stat Micro 11/16/23 01:06 Ordered Urine Culture Stat Micro 11/15/23 23:04 Received ECG Data Tracing #1: I reviewed this ECG and interpreted as documented below: Sinus rhythm, rate of 78, no significant ST changes ECG initial impression date: 11/15/23 ECG initial impression time: 23:32 HEART Score History (anamnesis): Slightly suspicious ECG: Non-specific disturbance Age: >65 years Risk factors: Atherosclerosis history Troponin: </= normal limit HEART Score: 5 Medical Decision Narrative: 78-year-old female with history of of coronary artery disease, hypertension, diabetes, presents for epigastric and right upper quadrant pain with nausea. She was seen and admitted for similar symptoms a few months ago and received antibiotics but did not have cholecystectomy.. History was obtained via interactive discussion with patient, family, chart review. On arrival, patient is afebrile, hemodynamic stable, generally well-appearing, poor historian. Full physical exam performed and significant for epigastric and right upper quadrant tenderness Differential includes but is not limited to cholecystitis, cholangitis, pancreatitis, colitis, gastritis, ACS, UTI Patient was given Tylenol and Zofran for symptomatic management and correction of underlying abnormalities. Workup initiated including CBC CMP lipase CT abdomen pelvis IV contrast EKG troponin UA On re-evaluation, patient [remains afebrile, HD stable.] Laboratory workup independently interpreted by me and significant for negative initial troponin, AST minimally elevated, normal bilirubin, urinalysis with 20-50 WBCs, 1+ bacteria, negative nitrates. Imaging independently interpreted by me and significant for gallbladder wall thickening and pericholecystic fluid/stranding no obvious stones. Looks similar to CT 3 months ago see radiology read for full review of final results. Given patient history, exam and workup, patient's presentation most likely represents chronic cholecystitis, potentially acute given patient's symptoms. Interactive discussion was had with Dr. Anderson and the hospitalist for admission. Blood cultures were obtained and patient was initiated on Zosyn for empiric coverage. Procedures Risk/Benefits of Procedure(s) Were Explained: Yes Critical Care Critical Care Time Critical Care Time: No
[2023-11-15] MEDS: ACETAMINOPHEN 500MG TAB 1000 MG PO (23:18)
[2023-11-15] MEDS: ONDANSETRON 4MG/2ML VIAL 4 MG IV (23:18)
[2023-11-15 23:24] VITALS: BP 187/73; PULSE 79; RESP 18; O2SAT 96
[2023-11-15 23:30] LABS: Albumin Level 4.3 g/dl (3.5-5.0); Basophils # 0.1 K/mm3 (0-0.2); Basophils % 1.2 % (0.1-2.0); Chloride 105 mmol/L (98-107); Eosinophils # 0.1 K/mm3 (0.0-0.4); Eosinophils % 2.1 % (0.1-12.0); Hematocrit 42.4 % (37.0-47.0); Hemoglobin 13.9 g/dL (12.2-16.2); Lymphocytes # 1.7 K/mm3 (0.7-4.5); Lymphocytes % 29.4 % (10-50); Mean Corpuscular HGB Conc 32.8 g/dL (31.8-35.4); Mean Corpuscular Hemoglobin 31.2 pg (27.0-31.2); Mean Corpuscular Volume 95.1 fl (81-99); Mean Platelet Volume 9.1 fl (7.4-10.4); Monocytes # 0.5 K/mm3 (0.1-1.0); Monocytes % 8.9 % (1.7-9.3); Neutrophils # 3.3 K/mm3 (1.8-7.8); Neutrophils % 58.3 % (37.0-80.0); Platelet Count 284 K/mm3 (142-424); Red Blood Count 4.46 M/mm3 (4.20-5.40); Red Cell Distribution Width 14.2 % (11.5-17.5); White Blood Count 5.7 K/mm3 (4.8-10.8)
[2023-11-15 23:31] LABS: Potassium 4.2 mmoL/L (3.5-5.1); Sodium 137 mmol/L (136-145)
--- NOTE | 2023-11-15 23:31 | ECG_ITS ---
APPROVED REPORT Exam: Resting ECG HR:78 bpm ECG Measurements Heart Rate 78 AXES IN 186 P 70 QRSd 89 QRS 1 QT 373 T -15 QTc 406 Conclusion SINUS RHYTHM MODERATE VOLTAGE CRITERIA FOR LVH, CONSIDER NORMAL VARIANT [MEETS CRITERIA IN ONE OF: R(aVL), S(V1), R(V5), R(V5/V6)+S(V1)] ABNORMAL ECG UNCONFIRMED REPORT Electronically signed by : LAURIE BOLDEN, 11/17/2023 04:26:27
[2023-11-15 23:33] LABS: Alanine Aminotransferase 22 U/L (12-78); Alkaline Phosphatase 64 U/L (38-126); Anion Gap 8.2 mEq/L (5-15); Aspartate Amino Transferase 39 U/L (14-36); Bilirubin,Total 0.6 mg/dl (0.2-1.3); Blood Urea Nitrogen 22 mg/dl (7-17); Carbon Dioxide 28 mmol/L (22.0-30.0); Creatinine Clearance Estimated 53 mL/min (50-200); Estimated Glomerular Filt Rate 69 ml/min (>60); GFR (African American) 84 ML/MIN (>60)
[2023-11-15 23:34] LABS: Albumin/Globulin Ratio 1.2 (1.1-1.8); Calcium 9.7 mg/dl (8.4-10.2); Globulin 3.6 g/dL (1.3-3.2); Glucose 119 mg/dl (74-100); Lipase 87 U/L (23-300); Total Protein,Serum 7.9 g/dl (6.3-8.2)
[2023-11-15 23:46] LABS: Troponin I 0.03 ng/ml (0.00-0.034)
[2023-11-15] MEDS: IOPAMIDOL-370 (76%);100ML BOTTLE 75 ML IV (23:55)
[2023-11-15] MEDS: SODIUM CHLORIDE 0.9% 10ML SYR (RAD ONLY) 10 ML IV (23:55)
[2023-11-15 23:57] LABS: Microscopic, Urine URINE MICROSCOPIC (MICROSCOPIC)
[2023-11-15 23:59] LABS: Appearance,Urine CLEAR (Clear); Bilirubin,Urine Negative (Negative); Blood, Urine Negative (Negative); Color,Urine YELLOW (Yellow); Glucose,Urine (UA) Negative (Negative); Ketones,Urine Negative (Negative); Leukocyte Esterase,Urine 2+ (Negative); Nitrate,Urine Negative (Negative); Protein,Urine Negative (Negative); Specific Gravity, Urine 1.015 (1.005-1.030)
[2023-11-16] VITALS (10 sets, daily range): BP systolic 120–179; BP diastolic 54–85; PULSE 55–74; RESP 16–18; TEMP 36.3–37.4; O2SAT 95–98; BMI 27.8
[2023-11-16] LABS: HIV (1&2) Antibody Rapid NONREACTIVE (NONREACTIVE)
[2023-11-16 00:17] LABS: WBC,Urine 20-50 #/hpf (0-3)
[2023-11-16 00:18] LABS: Bacteria,Urine 1+ /lpf
--- NOTE | 2023-11-16 00:55 | PC.NURSE ---
Dr. Anderson credit operations specialist and paged
--- NOTE | 2023-11-16 00:56 | PC.NURSE ---
Dr. Constantino on phone with Dr. Anderson
[2023-11-16] MEDS: PIPERACILLIN/TAZO 4.5 GM in 0.9 % SODIUM CHLORIDE 100 ML IV ×4 (01:16→20:20)
--- NOTE | 2023-11-16 01:29 | PC.NURSE ---
Report called to MOUNIKA Hunter at this time
--- NOTE | 2023-11-16 01:29 | PC.NURSE ---
0125 received report from Adrienne Meneses ED/rn. Patient confused 78 yo female. Acute Choleycystitis/UTI. May transfer per w/c.
--- NOTE | 2023-11-16 01:46 | PC.NURSE ---
0145 Arrived to the floor via w/c. Admitted to room 210.
[2023-11-16 02:30] LABS: Troponin I 0.03 ng/ml (0.00-0.034)
[2023-11-16] MEDS: 0.9 % SODIUM CHLORIDE 1000ML 1,000 ML 100 ML IV ×2 (02:31→14:31)
--- NOTE | 2023-11-16 02:35 | P.HP_ITS ---
History of Present Illness *Admission Date: 11/16/23 *Reason for visit:: RUQ pain, nausea, hot spells, increased memory deficits x 1 week *History of present illness: Patient with past medical history of acute cholecystitis July 2023, diabetes, hypertension, hypothyroidism, dementia, CAD with cardiac stents on aspirin/Plavix. Daughter states that patient suffers from severe memory deficits, and frequently forgets to take medications. Daughter states she personally administered medications to patient yesterday. Daughter brought patient to hospital secondary to right upper quadrant pain, nausea, hot/cold spells, and increased memory deficits occurring over past 7 days. Per daughter she did not even recognize her granddaughter this morning and that is not like her. Patient initially denied any acute complaints, but when reminded by her daughter during interview agreed that she suffered from aforementioned complaints. Admits to history of dementia problems over past 12 months. States she lives with her daughter now for support. Denies chest pain, palpitations, dysuria, hematuria, diarrhea, constipation, blurry vision, headaches. Confirms she was evaluated July 2023 for acute cholecystitis, and states she completed complete outpatient prescribed oral antibiotic treatment course. States that she would like to be full code during hospitalization. Of special note, patient denied any abdominal discomfort during physical examination by Dr. Rodriguez in emergency room. Negative Dukes sign and denied right upper quadrant pain. Daughter states that patient suffered from right upper quadrant pain prior to current hospitalization. [facility] Disclaimer: The information contained in this section may have been updated after the patient was seen, as this information can be updated by other users. Medical History Noncompliance with medication regimen Edema of right lower extremity CAD (coronary artery disease), [place] coronary artery Memory deficit Type 2 diabetes mellitus Hypertension Hypothyroidism (acquired) Rhabdomyolysis Neck pain Renal failure Sciatic leg pain Abdominal pain Surgical History Hx of right coronary artery stent placement Family History Other Cancer Diabetes Kidney disease Social History Smoking Status: Never smoker alcohol intake: never substance use type: denies use current occupational status: retired Travel in the last 8 weeks: None household members: none caffeine: Yes Review of Systems Review of Systems Review of systems:: pertinent systems reviewed and negative unless documented below Review of systems (narrative): All pertinent positives for review of systems given in [facility] Meds Home Medications and Allergies Home Medications ?Medication ?Instructions ?Recorded ?Confirmed ?Type metoprolol tartrate 50 mg tablet 75 mg PO BID Hypertension 04/16/18 11/16/23 History isosorbide mononitrate 30 mg 30 mg PO TID Hypertension 09/30/19 11/16/23 History tablet,extended release 24 hr clonidine HCl 0.1 mg tablet 0.1 mg PO BID 10/08/20 11/16/23 History furosemide 20 mg tablet 20 mg PO DAILY High blood pressure 10/08/20 11/16/23 History aspirin 81 mg tablet,delayed 81 mg PO DAILY [facility] #100 03/22/23 11/16/23 Rx release tabs clopidogrel 75 mg tablet 75 mg PO DAILY platelet inhibitor 03/22/23 11/16/23 Rx #90 tabs hydrochlorothiazide 25 mg tablet 25 mg PO DAILY High blood pressure 03/22/23 11/16/23 Rx #90 tabs levothyroxine 25 mcg tablet 25 mcg PO DAILY #90 tabs 03/22/23 11/16/23 Rx (Synthroid) losartan 100 mg tablet 100 mg PO DAILY #90 tabs 05/04/23 11/16/23 Rx nitroglycerin 0.4 mg sublingual 0.4 mg sublingual Q5MINP PRN Chest 07/29/23 11/16/23 History tablet Pain New Prescriptions to Start Prescriptions: Allergies Allergy/AdvReac Type Severity Reaction Status Date / Time morphine Allergy Intermediate Verified 05/04/23 14:15 phenobarbital Allergy Intermediate Verified 05/04/23 14:15 prochlorperazine AdvReac akathesia Verified 09/23/23 20:27 [From Compazine] Exam Data for Last 24 hours Vital signs and Labs for Last 24 Hours: Temp Pulse Resp BP Pulse Ox O2 Del Method 99.3 F 71 16 150/61 H 96 Room Air 11/16/23 02:02 11/16/23 02:02 11/16/23 02:02 11/16/23 02:02 11/16/23 02:02 11/16/23 02:02 Laboratory Results - last 24 hr 11/15/23 23:04: Urine Color Yellow, Urine Appearance Clear, Urine pH 6.0, Ur Specific [place] 1.015, Urine Protein Negative, Urine Glucose (UA) Negative, Urine Ketones Negative, Urine Blood Negative, Urine Nitrate Negative, Urine Bilirubin Negative, Urine Urobilinogen 1.0, Ur Leukocyte Esterase 2+ A, Urine RBC 3-5, Urine WBC 20-50, Ur Squamous Epith Cells 10-20, Urine Bacteria 1+ 11/15/23 23:17: WBC 5.7, RBC 4.46, Hgb 13.9, Hct 42.4, MCV 95.1, MCH 31.2, MCHC 32.8, RDW 14.2, Plt Count 284, MPV 9.1, Neut % (Auto) 58.3, Lymph % (Auto) 29.4, [place] % (Auto) 8.9, Eos % (Auto) 2.1, Baso % (Auto) 1.2, Neut # (Auto) 3.3, Lymph # (Auto) 1.7, [place] # (Auto) 0.5, Eos # (Auto) 0.1, Baso # (Auto) 0.1, Sodium 137, Potassium 4.2, Chloride 105, Carbon Dioxide 28, Anion Gap 8.2, BUN 22 H, Creatinine 0.80, Estimated Creat Clear 53, Estimated GFR 69, Est GFR ( Amer) 84, Glucose 119 H, Calcium 9.7, Total Bilirubin 0.6, AST 39 H, ALT 22, Alkaline Phosphatase 64, Troponin I 0.03, Total Protein 7.9, Albumin 4.3, Globulin 3.6 H, Albumin/Globulin Ratio 1.2, Lipase 87, HIV 1&2 Antibody Rapid Nonreactive 11/16/23 02:05: Troponin I 0.03 I & O for Last 24 hours: Intake & Output 11/13/23 11/14/23 11/15/23 11/16/23 23:59 23:59 23:59 23:59 Weight 74.208 kg 71.327 kg *Routine HEENT Exam Head: Present normocephalic Eye: Present EOMI and normal accommodation ENT: Present mucous membranes moist *Routine Neck Exam Neck: Present supple and full ROM *Routine Respiratory Exam Respiratory: Present CTA bilaterally and normal respiratory effort *Routine Cardiovascular Exam Cardiovascular: Present RRR, Normal S1 and Normal S2 *Routine Abdominal Exam Abdominal: Present soft and normoactive bowel sounds; Absent tenderness, rebound or guarding *Routine Rectal Exam Rectal:: deferred *Routine Genitalia Exam Genitalia:: deferred *Routine Extremities Exam Extremities: Present full ROM and normal capillary refill Assessment and Plan *Assessment and plan (1) RUQ pain: Status: Acute Category: Medical Code(s): R10.11 - Right upper quadrant pain (2) Acute UTI: Status: Acute Category: Medical Code(s): N39.0 - Urinary tract infection, site not specified (3) Type 2 diabetes mellitus: Status: Chronic Category: Medical Code(s): E11.9 - Type 2 diabetes mellitus without complications (4) Hypertension: Status: Chronic Qualifiers: Hypertension type: essential hypertension Qualified Code(s): I10 - Essential (primary) hypertension Category: Medical Code(s): I10 - Essential (primary) hypertension (5) Hypothyroidism (acquired): Status: Chronic Category: Medical Code(s): E03.9 - Hypothyroidism, unspecified (6) Memory deficit: Status: Acute Category: Medical Code(s): R41.3 - Other amnesia (7) CAD (coronary artery disease), [place] coronary artery: Status: Acute Category: Medical Code(s): I25.10 - Atherosclerotic heart disease of [place] coronary artery without angina pectoris Plan 78-year-old female with past medical history of diabetes, hypertension, dementia, CAD on Plavix with cardiac stents. Patient presents with recurrent right upper quadrant pain, and recurrent abnormal CT abdomen/pelvis inferring possible acute cholecystitis. Patient afebrile with white blood count 5.7 at time of presentation. Plan as listed below: RUQ pain rule out acute cholecystitis: -I personally reviewed 11/15 CT abdomen/pelvis showing thickened gallbladder, and partially collapsed gallbladder. I agree with radiology's assessment of CT abdomen/pelvis. I also reviewed CT abdomen/pelvis done 07/28/2023 and noted similar radiographic findings. WBC 5.7, patient temperature 99.3 at time of my evaluation emergency room. Patient had negative Dukes sign, and no right upper quadrant tenderness to palpation on my physical exam. Extremely hesitant to diagnose patient with acute cholecystitis. CT abdomen/pelvis 11/15 per my interpretation did show some new intraductal dilatation. This is new compared to CT 07/28/2023. Will therefore order MRCP to evaluate for intrahepatic ductal dilatation and common bile duct size. I did not note any gallstones on my review of 11/16/2023 or 07/28/2023 CT abdomen/pelvis scans. Radiology also did not comment on any gallstones present on CT abdomen/pelvis examinations. I ordered IV Zosyn 4.5 g IV Q6. I also ordered urgent lactic acid, procalcitonin, CRP results which are all pending while I am writing this note. I am looking for signs of sepsis or SIRS but currently see no indications for these pathologies. Blood cultures and urine cultures ordered by emergency room physician. Patient n.p.o. for general surgery consultation this a.m. in case general surgery decides to perform laparoscopic cholecystectomy. -Patient's LFTs within normal limits at time of hospital presentation. AST only slightly elevated 39, ALT 22, alk phos 64, total bili 0.6. Given hepatic dilatation noted on CT abdomen/pelvis, I ordered repeat LFTs for a.m. UTI -11/15 UA shows +2 leuk esterase, WBC 20-50, and +1 bacteria. Patient also complaining of several days nausea, hot/cold spells at home. Worried the patient suffering from UTI. I started patient on 4.5 g IV Zosyn every 6 which is excellent UTI antimicrobial coverage. I ordered repeat CBC for a.m. Hypertension: As noted in CAD section plus continue furosemide 20 mg p.o. daily. Hold home hydrochlorothiazide 25 mg p.o. daily because patient probably only requires 1 diuretic medication per day. Diabetes: ? I ordered hemoglobin A1c, sliding scale insulin, every 6 hours blood checks while patient n.p.o. Patient's blood sugar in emergency room 119 mg/dL on admission BMP. Hypothyroidism I will continue patient's Synthroid 25 mcg p.o. daily during hospitalization. Dementia: Patient very forgetful, and frequently asking daughter to help her remember medical details. Will continue home management of dementia. CAD: Hold aspirin 81 mg daily and Plavix 75 mg p.o. daily in case patient r equires surgery. Continue isosorbide mononitrate 30 mg p.o. 3 times daily. Continue Lopressor 75 mg p.o. twice daily. Continue losartan 100 mg p.o. daily. Reviewed echocardiogram 09/1919 noting EF 55% with mild aortic stenosis. MDM [place]: Moderate patient suffering from right upper quadrant pain possibly acute cholecystitis causing nausea, hot spells x 1 week. Patient also suffering from acute UTI which could be causing same symptoms. Data: Moderate, plus above and plan. I personally spoke with patient's daughter in emergency room at time of admission who acted as independent historian given patient's severe dementia and memory deficits. Daughter states that patient extremely forgetful about medication compliance, but states she personally administered medications to patient yesterday. I personally discussed this case with the emergency room physician, Dr. Constantino, and we both agree patient requires admission for right upper quadrant pain possibly acute cholecystitis and acute UTI management. Risk: High, I decided to admit patient to hospital for management of right upper quadrant pain possibly acute cholecystitis and acute UTI management. Both conditions are causing patient intractable nausea, decreased p.o. intake, and hot and cold spells over the past 7 days. Patient also requires close BUN/creatinine monitoring while on IV Zosyn 4.5 g every 6 hours that I ordered at time of admission. 60 minutes of total care time spent on patient by Dr. Rodriguez 11/16/2023
[2023-11-16 02:52] LABS: C-Reactive Protein 6.3 mg/L (0-4)
[2023-11-16 03:05] LABS: Procalcitonin 0.049 ng/mL (0.0-2.0)
--- NOTE | 2023-11-16 03:22 | PC.NURSE ---
Pleasantly confused. Daughter and granddaughter at bedside. Denies nausea/pain/discomfort at this time. Vital signs stable, afebrile.
[2023-11-16 03:24] LABS: POC Glucose,Bedside 104 (70-110)
[2023-11-16 04:09] LABS: Hemoglobin A1C 5.6 % (4.0-6.0)
[2023-11-16 06:27] LABS: Basophils # 0.1 K/mm3 (0-0.2); Basophils % 1.2 % (0.1-2.0); Eosinophils # 0.1 K/mm3 (0.0-0.4); Eosinophils % 2.3 % (0.1-12.0); Hematocrit 37.7 % (37.0-47.0); Lymphocytes # 1.7 K/mm3 (0.7-4.5); Lymphocytes % 38.1 % (10-50); Mean Corpuscular HGB Conc 31.9 g/dL (31.8-35.4); Mean Corpuscular Hemoglobin 30.5 pg (27.0-31.2); Mean Corpuscular Volume 95.8 fl (81-99); Mean Platelet Volume 8.9 fl (7.4-10.4); Monocytes # 0.4 K/mm3 (0.1-1.0); Monocytes % 8.4 % (1.7-9.3); Neutrophils # 2.3 K/mm3 (1.8-7.8); Platelet Count 268 K/mm3 (142-424); Red Blood Count 3.93 M/mm3 (4.20-5.40); White Blood Count 4.6 K/mm3 (4.8-10.8)
[2023-11-16 06:28] LABS: Lactic Acid 1.5 mmol/L (0.7-2.1)
--- NOTE | 2023-11-16 06:29 | PC.NURSE ---
Dr Anderson here to see patient.
[2023-11-16 06:30] LABS: Anion Gap 4.7 mEq/L (5-15); Blood Urea Nitrogen 21 mg/dl (7-17); Calcium 8.9 mg/dl (8.4-10.2); Carbon Dioxide 29 mmol/L (22.0-30.0); Chloride 106 mmol/L (98-107); Creatinine Clearance Estimated 51 mL/min (50-200); Estimated Glomerular Filt Rate 53 ml/min (>60); GFR (African American) 65 ML/MIN (>60); Glucose 99 mg/dl (74-100); Magnesium 1.3 mg/dl (1.6-2.3); Potassium 3.7 mmoL/L (3.5-5.1); Sodium 136 mmol/L (136-145)
--- NOTE | 2023-11-16 06:47 | US_ITS ---
FINAL REPORT CLINICAL HISTORY: Evaluate for acute cholecystitis FINDINGS: Sonographic images of the right upper quadrant were obtained. The pancreas is partially obscured.The liver has an unremarkable appearance. There is borderline gallbladder wall thickening up to 3 mm without stone disease or distention. There is borderline biliary ductal distention measuring up to 6 mm. There is a lower pole right renal cyst measuring 16 mm. There is no hydronephrosis. IMPRESSION: Borderline gallbladder wall thickening which is nonspecific. No other findings of cholecystitis. Borderline biliary ductal dilatation. Reviewed, Interpreted and Dictated by Renu Rodriguez MD Transcribed by Manisha Isaac Authenticated and [facility]
--- NOTE | 2023-11-16 06:51 | EXP.SURG.CON ---
History of Present Illness *Admission Date: 11/16/23 *Reason for visit:: Possible cholecystitis *History of present illness: This is an 78-year-old female seen in consultation after admission for possible cholecystitis. She presented overnight to the emergency department with documented nausea, epigastric pain, and right upper quadrant pain. The patient is a poor historian but currently states she is hurting in the right shoulder . She currently complains of no abdominal pain. A family member at the bedside states that she was hurting everywhere and doubled over in pain last night . Seemingly, the patient had shoulder pain, chest pain, abdominal pain, and back pain. Prior evaluation in July of this year included a CT scan that revealed a prominent gallbladder with subtle fat stranding but no stones. A repeat CT scan overnight revealed stable findings with partial collapse of the gallbladder and mild intrahepatic ductal dilatation. During hospitalization in July and during emergency department evaluation for chest pain in September recommendations were made for cardiology evaluation. Outpatient cardiology evaluation was never completed. In addition, the patient was evaluated by the surgical service in July prior to discharge at which time formal right upper quadrant ultrasound and cardiology preoperative evaluation are recommended. Formal right upper quadrant ultrasound was not obtained and the patient did not maintain outpatient follow-up. Forwarded from admission H&P: Patient with past medical history of acute cholecystitis July 2023, diabetes, hypertension, hypothyroidism, dementia, CAD with cardiac stents on aspirin/Plavix. Daughter states that patient suffers from severe memory deficits, and frequently forgets to take medications. Daughter states she personally administered medications to patient yesterday. Daughter brought patient to hospital secondary to right upper quadrant pain, nausea, hot/cold spells, and increased memory deficits occurring over past 7 days. Per daughter she did not even recognize her granddaughter this morning and that is not like her. Patient initially denied any acute complaints, but when reminded by her daughter during interview agreed that she suffered from aforementioned complaints. Admits to history of dementia problems over past 12 months. States she lives with her daughter now for support. Denies chest pain, palpitations, dysuria, hematuria, diarrhea, constipation, blurry vision, headaches. Confirms she was evaluated July 2023 for acute cholecystitis, and states she completed complete outpatient prescribed oral antibiotic treatment course. States that she would like to be full code during hospitalization. Of special note, patient denied any abdominal discomfort during physical examination by Dr. Rodriguez in emergency room. Negative Dukes sign and denied right upper quadrant pain. Daughter states that patient suffered from right upper quadrant pain prior to current hospitalization. [facility] Disclaimer: The information contained in this section may have been updated after the patient was seen, as this information can be updated by other users. Medical History Noncompliance with medication regimen Edema of right lower extremity CAD (coronary artery disease), [place] coronary artery Memory deficit Type 2 diabetes mellitus Hypertension Hypothyroidism (acquired) Rhabdomyolysis Neck pain Renal failure Sciatic leg pain Abdominal pain Surgical History Hx of right coronary artery stent placement Family History Other Cancer Diabetes Kidney disease Social History Smoking Status: Never smoker alcohol intake: never substance use type: denies use current occupational status: retired Travel in the last 8 weeks: None household members: none caffeine: Yes Meds Home Medications and Allergies Home Medications ?Medication ?Instructions ?Recorded ?Confirmed ?Type metoprolol tartrate 50 mg tablet 75 mg PO BID Hypertension 04/16/18 11/16/23 History isosorbide mononitrate 30 mg 30 mg PO TID Hypertension 09/30/19 11/16/23 History tablet,extended release 24 hr clonidine HCl 0.1 mg tablet 0.1 mg PO BID 10/08/20 11/16/23 History furosemide 20 mg tablet 20 mg PO DAILY High blood pressure 10/08/20 11/16/23 History aspirin 81 mg tablet,delayed 81 mg PO DAILY [facility] #100 03/22/23 11/16/23 Rx release tabs clopidogrel 75 mg tablet 75 mg PO DAILY platelet inhibitor 03/22/23 11/16/23 Rx #90 tabs hydrochlorothiazide 25 mg tablet 25 mg PO DAILY High blood pressure 03/22/23 11/16/23 Rx #90 tabs levothyroxine 25 mcg tablet 25 mcg PO DAILY #90 tabs 03/22/23 11/16/23 Rx (Synthroid) losartan 100 mg tablet 100 mg PO DAILY #90 tabs 05/04/23 11/16/23 Rx nitroglycerin 0.4 mg sublingual 0.4 mg sublingual Q5MINP PRN Chest 07/29/23 11/16/23 History tablet Pain New Prescriptions to Start Prescriptions: Allergies Allergy/AdvReac Type Severity Reaction Status Date / Time morphine Allergy Intermediate Verified 05/04/23 14:15 phenobarbital Allergy Intermediate Verified 05/04/23 14:15 prochlorperazine AdvReac akathesia Verified 09/23/23 20:27 [From Compazine] Exam (Inpt) Vital signs and Labs for Last 24 Hours: Temp Pulse Resp BP Pulse Ox O2 Del Method 97.6 F 67 16 121/54 L 95 Room Air 11/16/23 04:00 11/16/23 04:00 11/16/23 04:00 11/16/23 04:00 11/16/23 04:00 11/16/23 06:29 Laboratory Results - last 24 hr 11/15/23 23:04: Urine Color Yellow, Urine Appearance Clear, Urine pH 6.0, Ur Specific [place] 1.015, Urine Protein Negative, Urine Glucose (UA) Negative, Urine Ketones Negative, Urine Blood Negative, Urine Nitrate Negative, Urine Bilirubin Negative, Urine Urobilinogen 1.0, Ur Leukocyte Esterase 2+ A, Urine RBC 3-5, Urine WBC 20-50, Ur Squamous Epith Cells 10-20, Urine Bacteria 1+ 11/15/23 23:17: WBC 5.7, RBC 4.46, Hgb 13.9, Hct 42.4, MCV 95.1, MCH 31.2, MCHC 32.8, RDW 14.2, Plt Count 284, MPV 9.1, Neut % (Auto) 58.3, Lymph % (Auto) 29.4, [place] % (Auto) 8.9, Eos % (Auto) 2.1, Baso % (Auto) 1.2, Neut # (Auto) 3.3, Lymph # (Auto) 1.7, [place] # (Auto) 0.5, Eos # (Auto) 0.1, Baso # (Auto) 0.1, Sodium 137, Potassium 4.2, Chloride 105, Carbon Dioxide 28, Anion Gap 8.2, BUN 22 H, Creatinine 0.80, Estimated Creat Clear 53, Estimated GFR 69, Est GFR ( Amer) 84, Glucose 119 H, Hemoglobin A1c 5.6, Calcium 9.7, Total Bilirubin 0.6, AST 39 H, ALT 22, Alkaline Phosphatase 64, Troponin I 0.03, Total Protein 7.9, Albumin 4.3, Globulin 3.6 H, Albumin/Globulin Ratio 1.2, Lipase 87, HIV 1&2 Antibody Rapid Nonreactive 11/16/23 02:05: Troponin I 0.03, C-Reactive Protein 6.3 H, Procalcitonin 0.049 11/16/23 03:17: POC Glucose 104 11/16/23 06:07: WBC 4.6 L, RBC 3.93 L, Hgb 12.0 L D, Hct 37.7, MCV 95.8, MCH 30.5, MCHC 31.9, RDW 14.0, Plt Count 268, MPV 8.9, Neut % (Auto) 50.0, Lymph % (Auto) 38.1, [place] % (Auto) 8.4, Eos % (Auto) 2.3, Baso % (Auto) 1.2, Neut # (Auto) 2.3, Lymph # (Auto) 1.7, [place] # (Auto) 0.4, Eos # (Auto) 0.1, Baso # (Auto) 0.1, Sodium 136, Potassium 3.7, Chloride 106, Carbon Dioxide 29, Anion Gap 4.7 L, BUN 21 H, Creatinine 1.00 D, Estimated Creat Clear 51, Estimated GFR 53 L, Est GFR ( Amer) 65 D, Glucose 99, Lactate 1.5, Calcium 8.9, Magnesium 1.3 L I & O for Labs for Last 24 Hours: Intake & Output 11/13/23 11/14/23 11/15/23 11/16/23 11:59 11:59 11:59 11:59 Intake Total 1356 / 1356 Output Total 0 / 0 Balance 1356 / 1356 Weight 157 lb 3.986 oz Constitutional: no acute distress Respiratory: Absent respiratory distress Cardiac: Absent Tachycardia GI: Present soft; Absent tenderness Comments:: The patient has no abdominal tenderness and states she has no abdominal pain currently. Specifically, the patient has no tenderness in the right upper quadrant. Results Labs 11/16/23 06:07 11/16/23 06:07 Labs: Laboratory Results - last 24 hr 11/15/23 23:04: Urine Color Yellow, Urine Appearance Clear, Urine pH 6.0, Ur Specific [place] 1.015, Urine Protein Negative, Urine Glucose (UA) Negative, Urine Ketones Negative, Urine Blood Negative, Urine Nitrate Negative, Urine Bilirubin Negative, Urine Urobilinogen 1.0, Ur Leukocyte Esterase 2+ A, Urine RBC 3-5, Urine WBC 20-50, Ur Squamous Epith Cells 10-20, Urine Bacteria 1+ 11/15/23 23:17: WBC 5.7, RBC 4.46, Hgb 13.9, Hct 42.4, MCV 95.1, MCH 31.2, MCHC 32.8, RDW 14.2, Plt Count 284, MPV 9.1, Neut % (Auto) 58.3, Lymph % (Auto) 29.4, [place] % (Auto) 8.9, Eos % (Auto) 2.1, Baso % (Auto) 1.2, Neut # (Auto) 3.3, Lymph # (Auto) 1.7, [place] # (Auto) 0.5, Eos # (Auto) 0.1, Baso # (Auto) 0.1, Sodium 137, Potassium 4.2, Chloride 105, Carbon Dioxide 28, Anion Gap 8.2, BUN 22 H, Creatinine 0.80, Estimated Creat Clear 53, Estimated GFR 69, Est GFR ( Amer) 84, Glucose 119 H, Hemoglobin A1c 5.6, Calcium 9.7, Total Bilirubin 0.6, AST 39 H, ALT 22, Alkaline Phosphatase 64, Troponin I 0.03, Total Protein 7.9, Albumin 4.3, Globulin 3.6 H, Albumin/Globulin Ratio 1.2, Lipase 87, HIV 1&2 Antibody Rapid Nonreactive 11/16/23 02:05: Troponin I 0.03, C-Reactive Protein 6.3 H, Procalcitonin 0.049 11/16/23 03:17: POC Glucose 104 11/16/23 06:07: WBC 4.6 L, RBC 3.93 L, Hgb 12.0 L D, Hct 37.7, MCV 95.8, MCH 30.5, MCHC 31.9, RDW 14.0, Plt Count 268, MPV 8.9, Neut % (Auto) 50.0, Lymph % (Auto) 38.1, [place] % (Auto) 8.4, Eos % (Auto) 2.3, Baso % (Auto) 1.2, Neut # (Auto) 2.3, Lymph # (Auto) 1.7, [place] # (Auto) 0.4, Eos # (Auto) 0.1, Baso # (Auto) 0.1, Sodium 136, Potassium 3.7, Chloride 106, Carbon Dioxide 29, Anion Gap 4.7 L, BUN 21 H, Creatinine 1.00 D, Estimated Creat Clear 51, Estimated GFR 53 L, Est GFR ( Amer) 65 D, Glucose 99, Lactate 1.5, Calcium 8.9, Magnesium 1.3 L Assessment and Plan *Assessment and plan (1) RUQ pain: Status: Acute Category: Medical Code(s): R10.11 - Right upper quadrant pain Plan: The patient currently complains of no right upper quadrant pain and states that she has no belly pain anywhere . (2) Acute UTI: Status: Acute Category: Medical Code(s): N39.0 - Urinary tract infection, site not specified Plan: As per primary service (3) Cholecystitis: Status: Chronic Category: Medical Code(s): K81.9 - Cholecystitis, unspecified Plan: (See below) (4) CAD (coronary artery disease), [place] coronary artery: Status: Acute Qualifiers: [place] vs. transplanted heart: [place] heart Associated angina: unspecified whether angina present Qualified Code(s): I25.10 - Atherosclerotic heart disease of [place] coronary artery without angina pectoris Category: Medical Code(s): I25.10 - Atherosclerotic heart disease of [place] coronary artery without angina pectoris Plan: Cardiology evaluation pending Plan The patient likely has some degree of chronic cholecystitis. She has a new finding of mild intrahepatic ductal dilatation; however, the significance of this is somewhat equivocal. On multiple occasions she has had recommendations for formal cardiology clearance and for formal right upper quadrant ultrasound; however, these have yet to be completed. I have had a long conversation with the patient and her family member concerning the risks and benefits of cholecystectomy. She does not wish to undergo surgery unless it has to be done . Although some of the patient's symptoms may in fact be secondary to biliary disease, overall etiology remains equivocal and may be multifactorial. No evidence of acute cholecystitis. The patient remains afebrile and her white blood cell count is normal. Findings on her most recent CT scan are essentially stable. No need for emergent cholecystectomy; however, she may ultimately benefit from operative intervention. Formal right upper quadrant ultrasound pending Formal cardiology evaluation pending Repeat laboratory evaluation in the near future Follow-up next week for outpatient reevaluation after the above evaluations have been obtained (the patient can follow-up with Dr. Rosales or me as we have both seen the patient in consultation)
--- NOTE | 2023-11-16 07:13 | CA_ITS ---
APPROVED REPORT EXAM: Comprehensive 2D, Doppler, and color-flow Echocardiogram [place] Agent: Karol Bush, RT(R) Ht: 5 ft 3 in Wt: 157lbs BSA: 1.74 BP: 150/61 mmHg Indications: RUQ pain, CP, edema, HTN, CAD, dementia, left shoulder pain, DM. 2D Dimensions Left Atrium 4.77 cm F: 2.7 - 3.8 LVEF (Evans's) 35.30 % F: 54 - 74 LVOT 1.86 cm (M/F) 1.5-2.5 LV Volume 84.30 mL F: 46 - 106 LV Volume Index 48.2 mL/m2 F: 29 - 61 EF AP4 44.60 % EF AP2 37.1 % EF BP 35.3 % GL Strain -13.6 % M-Mode Dimensions RVDd 3.64 cm (0.9-2.6) LVDd 3.81 cm (3.5-5.7) Ao Diam 2.00 cm (2.0-3.7) LVDs 2.84 cm (3.5-5.7) IVSd 1.23 cm (0.6-1.1) PWd 1.31 cm (0.6-1.1) EF (Teich) 50.90% FS 25.50% EDV (Teich) 62.30 mL ESV (Teich) 30.60 mL LV Diastology E Decel Time 204 (160-240 msec) E/A Ratio 1.0 MED E' 6.2 (>= 7 cm/sec) E'/MED E' Ratio 23.50 (<= 14) LAT E' 7.0 (>= 10 cm/sec) E/LAT E' Ratio 20.81 (<= 14) Aortic Valve LVOT Max 110.0 (70-110 cm/s) MCKENZIE Index 0.71 cm2/m2 LVOT VTI 25.63 cm AoV Peak Rodri. 261.0 (50-130 cm/s) AI PHT 609.00 ms AO Mean GR. 13.40 (<5 mmHg) AO VTI 56.8 (18-25 cm) MCKENZIE (VTI) 1.23 (2.5-4.5 cm2) Mitral Valve MV E Max Rodri. 146.0 (40-130 cm/s) MV A Velocity 145.0 (40-130 cm/s) E/A Ratio 1.00 MV Decel. Time 204 (160-240 ms) MV PHT 122.0 ms Tricuspid Valve TR P. Velocity 226.00 cm/s RAP Estimate 10.00 mmHg RVSP 30.50 mmHg Left Ventricle The left ventricle is normal size. The left ventricular systolic function is normal. The left ventricular ejection fraction is within the normal range. There is increased LV wall thickness. Grade 2 diastolic dysfunction is present. There is normal LV segmental wall motion. LVEF is 65%. Right Ventricle The right ventricle is normal size. The right ventricular systolic function is normal. Atria Left atrium is moderately dilated. The right atrium size is normal. There is no Doppler evidence of interatrial shunt. Aortic Valve The aortic valve is moderately thickened. Mild aortic regurgitation. Moderate aortic stenosis. MCKENZIE by continuity equation is 1.3 cm???. Peak velocity 2.7 m/s. Mean AV gradient 14 mmHg. Max AV gradient 28 mmHg. DI 0.44. Mitral Valve Moderate mitral annular calcification. The mitral valve leaflets are moderately thickened. No evidence of mitral valve stenosis. Mean MV gradient 3 mmHg (HR 65 bpm). Mild mitral regurgitation. Tricuspid Valve Tricuspid valve is grossly normal in structure and function. Mild tricuspid regurgitation. RVSP is 30-35 mmHg. Pulmonic Valve The pulmonary valve is normal in structure. Mild pulmonic regurgitation. Great Vessels The aortic root is normal in size. The ascending aorta is normal in size. IVC is normal in size and collapses >50% with inspiration. Pericardium There is no pericardial effusion. Other Information Study Quality: Fair Conclusion Normal biventricular systolic function. LA dilation. Moderate (MCKENZIE by continuity equation is 1.3 cm???. Peak velocity 2.7 m/s. Mean AV gradient 14 mmHg. Max AV gradient 28 mmHg. DI 0.44). Moderate MAC and calcified MV leaflets. No evidence of MV stenosis. Mean MV gradient 3 mmHg (HR 65 bpm). Mild MR, mild TR, mild AI, mild PI. RVSP is 30-35 mmHg. Electronically signed by : Neeta Riggs MD 11/16/2023 11:26:05
[2023-11-16 07:19] LABS: Troponin I 0.03 ng/ml (0.00-0.034)
--- NOTE | 2023-11-16 07:44 | MR_ITS ---
FINAL REPORT TECHNIQUE: Multiplanar, sequential MRI images of the abdomen were performed. Heavy T2-weighted MRCP sequences were also performed. 3-D reconstruction images were also performed. CLINICAL HISTORY: NEW DUCTAL DILATION IN PATIENT W/RUQ PAIN COMPARISON: 11/16/2023 FINDINGS: LIVER: The liver is homogeneous in signal intensity without focal hepatic lesion. The liver enhances uniformly. GALLBLADDER: No cholelithiasis. No gall bladder wall thickening or pericholecystic fluid. BILE DUCTS: There is borderline biliary ductal dilatation. Common bile duct and common hepatic duct measures 7 mm., PANCREAS AND PANCREATIC DUCT: The pancreas is normal in signal. The pancreatic parenchyma enhances uniformly. ADRENAL GLANDS: The adrenal glands are morphologically unremarkable without suspicious lesion. KIDNEYS AND PROXIMAL URETERS: There are a few few benign appearing bilateral renal cysts .No hydronephrosis. SPLEEN: The spleen is normal in size and signal intensity. GASTROINTESTINAL SYSTEM AND MESENTERY: The visualized portions of the gastrointestinal system are unremarkable. No significant mesenteric inflammation. LYMPH NODES: No pathologically enlarged abdominal lymph nodes are present. VESSELS: The abdominal aorta is normal in caliber. The celiac trunk and superior mesenteric artery appear grossly patent. The superior mesenteric vein, splenic vein and main portal veins are grossly patent. The inferior vena cava is unremarkable. PERITONEUM: No free intraperitoneal fluid. BODY WALL: Unremarkable. BONES: No suspicious osseous lesions. IMPRESSION: Borderline biliary ductal dilatation without choledocholithiasis. Reviewed, Interpreted and Dictated by Renu Rodriguez MD Transcribed by Manisha Isaac Authenticated and [facility]
[2023-11-16] MEDS: MAGNESIUM SULFATE IN WATER 2 GM/50 ML PIGGYBACK IV (08:59)
--- NOTE | 2023-11-16 09:08 | HMH.PHAINT1 ---
Pharmacy Intervention Comments: Home medications verified using medication list from pharmacy and bedside interview with patients daughter.
--- NOTE | 2023-11-16 09:25 | PC.NURSE ---
PATIENT IS STILL DOWNSTAIRS FOR ECHO/ GALLBLADDER U/S.
[2023-11-16 10:28] LABS: POC Glucose,Bedside 90 (70-110)
--- NOTE | 2023-11-16 11:45 | EXP.CARD.CON ---
History of Present Illness History of Present Illness Consult date: 11/16/23 Requesting physician: Fredy Meléndez Consult reason: pre-op evaluation Chief complaint: Epigastic pain, RUQ pain, nausea History of present illness: Note, patient is a poor historian: This is an 78-year-old white female with past medical history of acute cholecystitis in July 2023, diabetes, hypertension, hypothyroidism, dementia, coronary artery disease with previous stenting who presented to emergency department with complaints of right upper quadrant pain, nausea, hot and cold spells and increased memory deficits over the past 7 days. Initial labs as follow: WBC 5.7, hemoglobin 13.9, sodium 137, potassium 4.2, creatinine 0.8, AST 39, ALT 22, serial troponins negative and a C-reactive protein of 6.3. A CT abdomen pelvis was obtained which showed a partially collapsed gallbladder and thick-walled stable in appearance from prior with mild central intrahepatic biliary ductal dilation which is new. Urine concerning for UTI. EKG shows sinus rhythm at a rate of 78 without acute ischemic changes noted. Patient is currently denying chest pain, shortness of breath, nausea or abdominal pain. Cardiology was asked to evaluate for preop clearance. [facility] Disclaimer: The information contained in this section may have been updated after the patient was seen, as this information can be updated by other users. Medical History Noncompliance with medication regimen Edema of right lower extremity CAD (coronary artery disease), [place] coronary artery Memory deficit Type 2 diabetes mellitus Hypertension Hypothyroidism (acquired) Rhabdomyolysis Neck pain Renal failure Sciatic leg pain Abdominal pain Surgical History Hx of right coronary artery stent placement Family History Other Cancer Diabetes Kidney disease Social History Smoking Status: Never smoker alcohol intake: never substance use type: denies use current occupational status: retired Travel in the last 8 weeks: None household members: none caffeine: Yes Review of Systems *Cardiovascular Cardiovascular: Denies chest pain and Denies dyspnea *Respiratory Respiratory: Denies dyspnea *Gastrointestinal Gastrointestinal: Reports nausea Comments: Epigastric and right upper abdominal pain Exam Data for Last 24 hours Vital signs and Labs for Last 24 Hours: Temp Pulse Resp BP Pulse Ox O2 Del Method 97.6 F 67 16 121/54 L 95 Room Air 11/16/23 04:00 11/16/23 04:00 11/16/23 04:00 11/16/23 04:00 11/16/23 04:00 11/16/23 10:35 Laboratory Results - last 24 hr 11/15/23 23:04: Urine Color Yellow, Urine Appearance Clear, Urine pH 6.0, Ur Specific [place] 1.015, Urine Protein Negative, Urine Glucose (UA) Negative, Urine Ketones Negative, Urine Blood Negative, Urine Nitrate Negative, Urine Bilirubin Negative, Urine Urobilinogen 1.0, Ur Leukocyte Esterase 2+ A, Urine RBC 3-5, Urine WBC 20-50, Ur Squamous Epith Cells 10-20, Urine Bacteria 1+ 11/15/23 23:17: WBC 5.7, RBC 4.46, Hgb 13.9, Hct 42.4, MCV 95.1, MCH 31.2, MCHC 32.8, RDW 14.2, Plt Count 284, MPV 9.1, Neut % (Auto) 58.3, Lymph % (Auto) 29.4, [place] % (Auto) 8.9, Eos % (Auto) 2.1, Baso % (Auto) 1.2, Neut # (Auto) 3.3, Lymph # (Auto) 1.7, [place] # (Auto) 0.5, Eos # (Auto) 0.1, Baso # (Auto) 0.1, Sodium 137, Potassium 4.2, Chloride 105, Carbon Dioxide 28, Anion Gap 8.2, BUN 22 H, Creatinine 0.80, Estimated Creat Clear 53, Estimated GFR 69, Est GFR ( Amer) 84, Glucose 119 H, Hemoglobin A1c 5.6, Calcium 9.7, Total Bilirubin 0.6, AST 39 H, ALT 22, Alkaline Phosphatase 64, Troponin I 0.03, Total Protein 7.9, Albumin 4.3, Globulin 3.6 H, Albumin/Globulin Ratio 1.2, Lipase 87, HIV 1&2 Antibody Rapid Nonreactive 11/16/23 02:05: Troponin I 0.03, C-Reactive Protein 6.3 H, Procalcitonin 0.049 11/16/23 03:17: POC Glucose 104 11/16/23 06:07: WBC 4.6 L, RBC 3.93 L, Hgb 12.0 L D, Hct 37.7, MCV 95.8, MCH 30.5, MCHC 31.9, RDW 14.0, Plt Count 268, MPV 8.9, Neut % (Auto) 50.0, Lymph % (Auto) 38.1, [place] % (Auto) 8.4, Eos % (Auto) 2.3, Baso % (Auto) 1.2, Neut # (Auto) 2.3, Lymph # (Auto) 1.7, [place] # (Auto) 0.4, Eos # (Auto) 0.1, Baso # (Auto) 0.1, Sodium 136, Potassium 3.7, Chloride 106, Carbon Dioxide 29, Anion Gap 4.7 L, BUN 21 H, Creatinine 1.00 D, Estimated Creat Clear 51, Estimated GFR 53 L, Est GFR ( Amer) 65 D, Glucose 99, Lactate 1.5, Calcium 8.9, Magnesium 1.3 L, Troponin I 0.03 11/16/23 10:21: POC Glucose 90 I & O for Last 24 hours: Intake & Output 11/13/23 11/14/23 11/15/23 11/16/23 23:59 23:59 23:59 23:59 Intake Total 1356 / 1356 Output Total 0 / 0 Balance 1356 / 1356 Weight 163 lb 9.6 oz 157 lb 3.986 oz Constitutional Constitutional: no acute distress *Routine Respiratory Exam Respiratory: Present CTA bilaterally and symmetric chest movement *Routine Cardiovascular Exam Cardiovascular: Present RRR, Normal S1 and Normal S2 *Routine Abdominal Exam Abdominal: Present soft and normoactive bowel sounds; Absent tenderness *Routine Extremities Exam Extremities: Present full ROM and normal capillary refill; Absent edema *Routine Skin Exam Skin: Present intact, dry and warm Detailed Neck Exam: Thyroids Thyroid: Absent bruit Meds Home Medications and Allergies Home Medications ?Medication ?Instructions ?Recorded ?Confirmed ?Type metoprolol tartrate 50 mg tablet 75 mg PO BID Hypertension 04/16/18 11/16/23 History isosorbide mononitrate 30 mg 30 mg PO TID Hypertension 09/30/19 11/16/23 History tablet,extended release 24 hr clonidine HCl 0.1 mg tablet 0.1 mg PO BID 10/08/20 11/16/23 History furosemide 20 mg tablet 20 mg PO DAILY High blood pressure 10/08/20 11/16/23 History aspirin 81 mg tablet,delayed 81 mg PO DAILY [facility] 03/22/23 11/16/23 Rx release tabs clopidogrel 75 mg tablet 75 mg PO DAILY platelet inhibitor 03/22/23 11/16/23 Rx #90 tabs hydrochlorothiazide 25 mg tablet 25 mg PO DAILY High blood pressure 03/22/23 11/16/23 Rx #90 tabs levothyroxine 25 mcg tablet 25 mcg PO DAILY #90 tabs 03/22/23 11/16/23 Rx (Synthroid) losartan 100 mg tablet 100 mg PO DAILY #90 tabs 05/04/23 11/16/23 Rx nitroglycerin 0.4 mg sublingual 0.4 mg sublingual Q5MINP PRN Chest 07/29/23 11/16/23 History tablet Pain amlodipine 5 mg tablet 5 mg PO DAILY 11/16/23 11/16/23 History cyanocobalamin (vitamin B-12) 1,000 mcg PO DAILY 11/16/23 11/16/23 History 1,000 mcg tablet New Prescriptions to Start Prescriptions: Allergies Allergy/AdvReac Type Severity Reaction Status Date / Time morphine Allergy Intermediate Verified 05/04/23 14:15 phenobarbital Allergy Intermediate Verified 05/04/23 14:15 prochlorperazine AdvReac akathesia Verified 09/23/23 20:27 [From Compazine] Assessment and Plan *Assessment and plan (1) RUQ pain: Status: Acute Category: Medical Code(s): R10.11 - Right upper quadrant pain (2) Acute UTI: Status: Acute Category: Medical Code(s): N39.0 - Urinary tract infection, site not specified (3) Hypertension: Status: Chronic Qualifiers: Hypertension type: essential hypertension Qualified Code(s): I10 - Essential (primary) hypertension Category: Medical Code(s): I10 - Essential (primary) hypertension (4) CAD (coronary artery disease), [place] coronary artery: Status: Acute Qualifiers: [place] vs. transplanted heart: [place] heart Associated angina: unspecified whether angina present Qualified Code(s): I25.10 - Atherosclerotic heart disease of [place] coronary artery without angina pectoris Category: Medical Code(s): I25.10 - Atherosclerotic heart disease of [place] coronary artery without angina pectoris Plan Reported history of coronary artery disease Reported history of chest pain Serial troponins remain negative EKG is without acute ischemic changes noted Patient denies chest pain Echocardiogram 11/16/2023: Normal biventricular systolic function, LA dilation, moderate AAS, moderate MAC and calcified mitral valve leaflets with no evidence of mitral valve stenosis, mild MR mild TR mild AI mild PI, RVSP 30-35 Recommend outpatient ischemic evaluation Conetinue Plavix 75 mg p.o. daily, aspirin 81 mg p.o. daily and beta-justino. Start atorvastatin 40 mg p.o. daily Hypertension Continue losartan 100 mg p.o. daily, metoprolol tartrate 75 mg p.o. twice daily, HCTZ 25mg po daily, Lasix 20 mg p.o. daily and amlodipine 5 mg p.o. daily Acute UTI Right upper quadrant pain Concern for cholecystitis Defer to primary service Diabetes mellitus, type II Defer to primary service CV summary 11/16/2023: Patient is CV stable. Please continue below listed medications and have patient follow-up with cardiology clinic 1 week post discharge for further outpatient ischemic evaluation. Cardiology will sign off, contact service as needed. Cardiac meds: Plavix 75 mg p.o. daily Aspirin 81 mg p.o. daily Metoprolol tartrate 75 mg p.o. twice daily Atorvastatin 40 mg p.o. daily Losartan 100 mg p.o. daily Metoprolol tartrate 75 mg p.o. twice daily Hydrochlorothiazide 25 mg p.o. daily Lasix 20 mg p.o. daily Amlodipine5 mg p.o. daily
[2023-11-16] MEDS: POLYETHYLENE GLYCOL 3350 17 GM PACKET PO ×2 (12:05→20:19)
[2023-11-16] MEDS: SENNOSIDES 8.6MG/DOCUSATE 50MG TABLET 1 TAB PO ×2 (12:06→20:20)
[2023-11-16 14:51] LABS: POC Glucose,Bedside 105 (70-110)
--- NOTE | 2023-11-16 15:32 | EXP.ACUTE.PN ---
Subjective *Date: 11/16/23 *Time: 15:39 Interval history: Patient feeling little better by morning. Abdominal pain appears to be diffuse. Negative Dukes sign. Stable on room air. States she just does not feel well. Had not had a bowel movement for several days until yesterday. Discussed that she may have constipation. Medical Exam Vital signs and Labs for Last 24 Hours: Vital Signs Temp Pulse Pulse Resp BP BP Pulse Ox 11/16/23 12:55 11/16/23 12:14 60 11/16/23 12:00 98 F 68 16 120/62 96 11/16/23 10:35 11/16/23 10:33 11/16/23 06:29 11/16/23 05:00 11/16/23 04:00 97.6 F 67 16 121/54 L 95 11/16/23 02:44 11/16/23 02:37 96 11/16/23 02:28 72 11/16/23 02:02 99.3 F 71 16 150/61 H 96 11/16/23 01:21 98 F 74 16 179/85 H 11/15/23 23:24 79 18 187/73 H 96 11/15/23 22:50 97.9 F 96 H 17 183/85 H 96 O2 Del Method 11/16/23 12:55 Room Air 11/16/23 12:14 11/16/23 12:00 Room Air 11/16/23 10:35 Room Air 11/16/23 10:33 Room Air 11/16/23 06:29 Room Air 11/16/23 05:00 Room Air 11/16/23 04:00 Room Air 11/16/23 02:44 Room Air 11/16/23 02:37 Room Air 11/16/23 02:28 11/16/23 02:02 Room Air 11/16/23 01:21 Room Air 11/15/23 23:24 Room Air 11/15/23 22:50 Room Air Intake and Output 11/15/23 11/16/23 11/16/23 23:59 07:59 15:59 Intake Total 1356 / 1716 360 / 1716 Output Total 0 / 0 Balance 1356 / 1716 360 / 1716 Intake: Intake, Oral Amount 360 / 360 Intake, Total IV Amount 1356 / 1356 0.9 % Sodium Chloride 1000ML 1, 1256 / 1256 000 ml @ 100 mls/hr IV .Q10H [facility] Rx#:[id number] Piperacillin/Tazo 4.5 gm In 0.9 100 / 100 % Sodium Chloride 100 ml @ 200 mls/hr IV ONCE ONE Rx#: [id number] Output: Output, Urine Amount 0 / 0 Other: Number of Unmeasured Voids 1 Weight 74.208 kg 71.327 kg Patient Weight 11/16/23 23:59 Weight 71.327 kg Laboratory Results - last 24 hr 11/15/23 23:04: Urine Color Yellow, Urine Appearance Clear, Urine pH 6.0, Ur Specific [place] 1.015, Urine Protein Negative, Urine Glucose (UA) Negative, Urine Ketones Negative, Urine Blood Negative, Urine Nitrate Negative, Urine Bilirubin Negative, Urine Urobilinogen 1.0, Ur Leukocyte Esterase 2+ A, Urine RBC 3-5, Urine WBC 20-50, Ur Squamous Epith Cells 10-20, Urine Bacteria 1+ 11/15/23 23:17: WBC 5.7, RBC 4.46, Hgb 13.9, Hct 42.4, MCV 95.1, MCH 31.2, MCHC 32.8, RDW 14.2, Plt Count 284, MPV 9.1, Neut % (Auto) 58.3, Lymph % (Auto) 29.4, [place] % (Auto) 8.9, Eos % (Auto) 2.1, Baso % (Auto) 1.2, Neut # (Auto) 3.3, Lymph # (Auto) 1.7, [place] # (Auto) 0.5, Eos # (Auto) 0.1, Baso # (Auto) 0.1, Sodium 137, Potassium 4.2, Chloride 105, Carbon Dioxide 28, Anion Gap 8.2, BUN 22 H, Creatinine 0.80, Estimated Creat Clear 53, Estimated GFR 69, Est GFR ( Amer) 84, Glucose 119 H, Hemoglobin A1c 5.6, Calcium 9.7, Total Bilirubin 0.6, AST 39 H, ALT 22, Alkaline Phosphatase 64, Troponin I 0.03, Total Protein 7.9, Albumin 4.3, Globulin 3.6 H, Albumin/Globulin Ratio 1.2, Lipase 87, HIV 1&2 Antibody Rapid Nonreactive 11/16/23 02:05: Troponin I 0.03, C-Reactive Protein 6.3 H, Procalcitonin 0.049 11/16/23 03:17: POC Glucose 104 11/16/23 06:07: WBC 4.6 L, RBC 3.93 L, Hgb 12.0 L D, Hct 37.7, MCV 95.8, MCH 30.5, MCHC 31.9, RDW 14.0, Plt Count 268, MPV 8.9, Neut % (Auto) 50.0, Lymph % (Auto) 38.1, [place] % (Auto) 8.4, Eos % (Auto) 2.3, Baso % (Auto) 1.2, Neut # (Auto) 2.3, Lymph # (Auto) 1.7, [place] # (Auto) 0.4, Eos # (Auto) 0.1, Baso # (Auto) 0.1, Sodium 136, Potassium 3.7, Chloride 106, Carbon Dioxide 29, Anion Gap 4.7 L, BUN 21 H, Creatinine 1.00 D, Estimated Creat Clear 51, Estimated GFR 53 L, Est GFR ( Amer) 65 D, Glucose 99, Lactate 1.5, Calcium 8.9, Magnesium 1.3 L, Troponin I 0.03 11/16/23 10:21: POC Glucose 90 11/16/23 14:42: POC Glucose 105 I & O for Labs for Last 24 Hours: Intake & Output 11/13/23 11/14/23 11/15/23 11/16/23 23:59 23:59 23:59 23:59 Intake Total 1716 / 1716 Output Total 0 / 0 Balance 171 / 1716 Weight 74.208 kg 71.327 kg Constitutional: Present no acute distress, average body habitus, chronically ill appearing and cooperative Head: Present atraumatic and normocephalic ENT: Present normal exam Respiratory: Present normal respiratory effort; Absent rhonchi, wheezes or crackles Cardiac: Present Reg Rate and Rhythm GI: Present soft, tenderness (Diffuse, nonfocal, worse in right lower abdomen.) and normal bowel sounds; Absent distention or Dukes's sign (female): Present deferred Extremities: Present normal inspection and full ROM Skin: Present intact; Absent erythema Neuro: Present Grossly Intact, alert, awake and moves all extremities Assessment and Plan *Assessment and plan (1) RUQ pain: Status: Acute Category: Medical Code(s): R10.11 - Right upper quadrant pain (2) Acute UTI: Status: Acute Category: Medical Code(s): N39.0 - Urinary tract infection, site not specified (3) Type 2 diabetes mellitus: Status: Chronic Category: Medical Code(s): E11.9 - Type 2 diabetes mellitus without complications (4) Hypertension: Status: Chronic Qualifiers: Hypertension type: essential hypertension Qualified Code(s): I10 - Essential (primary) hypertension Category: Medical Code(s): I10 - Essential (primary) hypertension (5) Hypothyroidism (acquired): Status: Chronic Category: Medical Code(s): E03.9 - Hypothyroidism, unspecified (6) Memory deficit: Status: Acute Category: Medical Code(s): R41.3 - Other amnesia (7) CAD (coronary artery disease), [place] coronary artery: Status: Acute Qualifiers: Associated angina: unspecified whether angina present [place] vs. transplanted heart: [place] heart Qualified Code(s): I25.10 - Atherosclerotic heart disease of [place] coronary artery without angina pectoris Category: Medical Code(s): I25.10 - Atherosclerotic heart disease of [place] coronary artery without angina pectoris Plan 78-year-old female with past medical history of diabetes, hypertension, dementia, CAD on Plavix with cardiac stents. Patient presents with recurrent right upper quadrant pain, and recurrent abnormal CT abdomen/pelvis inferring possible acute cholecystitis. Patient afebrile with white blood count 5.7 at time of presentation. Plan as listed below: RUQ pain rule out acute cholecystitis: -I personally reviewed 11/15 CT abdomen/pelvis showing thickened gallbladder, and partially collapsed gallbladder. -Appears to have decent stool burden. Will address constipation with aggressive bowel regimen including MiraLAX x 1 and docusate/senna twice daily. Monitor for improvement in pain. - Discussed case with surgery, recommend formal right upper quadrant ultrasound, this is pending. Recommend cardiology evaluation for preop optimization and evaluation of alternate source of her pain. Recommend outpatient management. Low concern for acute cholecystitis at this time. -Negative Dukes sign on exam, hesitant to diagnose acute cholecystitis. Will continue 24 more hours of IV Zosyn 4.5 g every 6 hours. -White count normal at 4.6. Advance diet to full liquid. -Repeat CBC, CMP, magnesium for the morning. - LFTs unremarkable with bilirubin 0.6, AST 39, ALT 22, alk phos 64. UTI -11/15 UA shows +2 leuk esterase, WBC 20-50, and +1 bacteria. Patient also complaining of several days nausea, hot/cold spells at home. - 4.5 g IV Zosyn every 6 pending urine culture Hypertension: CAD: - Continue home Lasix, HCTZ, amlodipine 5 mg daily. -Resume Plavix 75 mg daily and aspirin 81 mg daily. Diabetes: ?A1c normal at 5.6. Discontinue insulin and fingersticks Hypothyroidism: continue Synthroid 25 mcg p.o. daily during hospitalization. Dementia: Patient very forgetful, and frequently asking daughter to help her remember medical details. Will continue home management of dementia. Full code Full liquid diet
--- NOTE | 2023-11-16 18:03 | PC.NURSE ---
A&O TO SELF ONLY. PATIENT IS PLEASANTLY CONFUSED AT TIMES. TOLERATING RA WELL. PATIENT HAS RESTED IN BED MAJORITY OF THE DAY. IS AMBULATING TO THE BATHROOM INDEPENDENTLY, WITH STANDBY ASSIST FROM STAFF AND FAMILY. PT HAS HAD NO C/O T/O THE SHIFT, AND SEEMS TO FEEL BETTER THE DAY GOES ON. FAMILY HAS REMAINED AT BEDSIDE MAJORITY OF THE DAY. BED SAFETY IN PLACE WHEN FAMILY IS NOT IN THE ROOM. VSS.
[2023-11-16] MEDS: SODIUM CHLORIDE 0.9% 10ML VIAL 10 ML IV (20:19)
[2023-11-16] MEDS: PANTOPRAZOLE 40MG VIAL 40 MG IV (20:20)
[2023-11-16] MEDS: ATORVASTATIN 40MG TABLET 40 MG PO (20:20)
[2023-11-16] MEDS: METOPROLOL TARTRATE 50MG TABLET 75 MG PO (20:20)
[2023-11-17] VITALS: BP 127/81; PULSE 62; PULSE 73; RESP 18; TEMP 36.8; O2SAT 96
[2023-11-17] MEDS: PIPERACILLIN/TAZO 4.5 GM in 0.9 % SODIUM CHLORIDE 100 ML IV ×2 (01:00→08:33)
[2023-11-17 02:54] VITALS: BMI 28.4
[2023-11-17] MEDS: ACETAMINOPHEN 325MG TAB 500 MG PO (03:36)
[2023-11-17 04:00] VITALS: BP 147/68; PULSE 58; PULSE 59; RESP 16; TEMP 36.3; O2SAT 95
[2023-11-17] MEDS: ONDANSETRON 4MG/2ML VIAL 4 MG IV (04:09)
--- NOTE | 2023-11-17 05:09 | EXP.EVENT.NO ---
Patient admitted for abdominal discomfort and being treated for UTI. Patient complaining of abdominal pain not resolved with Tylenol. Wrote for Pyridium 100 mg p.o. twice daily x 4 doses. Also wrote for Phenergan 25 mg IV as needed nausea/vomiting. Ondansetron not resolving nausea. Patient has akathisia allergy to IV Compazine.
[2023-11-17] MEDS: KETOROLAC 30MG/ML VIAL 15 MG IV (05:16)
[2023-11-17] MEDS: PROMETHAZINE HCL 25MG/ML 1ML VIAL 25 MG IV (05:17)
[2023-11-17] MEDS: SODIUM CHLORIDE 0.9% 25ML BAG 25 ML IV (05:17)
--- NOTE | 2023-11-17 05:25 | PC.NURSE ---
Addendum entered by Felicitas Mcdonald RN 11/17/23 05:52: New PRN orders for pain and nausea relieved patient symptoms. Pt is resting well at this time. Original Note: Pt is alert to name and understands she is in the hospital, unsure of where. Daughter and granddaughter remained at the bedside throughout the night. Pt has rested well. 0330 pt complained of abdominal pain 5/10, treated with PRN tylenol, pt started feeling nausea, treated PRN zofran, both PRN medicaitons did not releive patient symptoms, contacted Giulia Rodriguez, new orders received and carried out. Ambulates to the restroom with standby assist. No BM this shift. Abdomen soft and tender to the touch, bowel sounds active. Tolerating room air throughout the night. Fingersticks are now before breakfast and dinner per verbal order by Giulia Rodriguez. Call light in reach.
[2023-11-17] MEDS: PHENAZOPYRIDINE 200MG TABLET 100 MG PO ×2 (05:41→20:28)
[2023-11-17 06:13] LABS: Basophils # 0.1 K/mm3 (0-0.2); Basophils % 1.2 % (0.1-2.0); Eosinophils # 0.1 K/mm3 (0.0-0.4); Eosinophils % 2.3 % (0.1-12.0); Hematocrit 35.3 % (37.0-47.0); Hemoglobin 11.1 g/dL (12.2-16.2); Lymphocytes # 1.7 K/mm3 (0.7-4.5); Lymphocytes % 34.8 % (10-50); Mean Corpuscular HGB Conc 31.3 g/dL (31.8-35.4); Mean Corpuscular Hemoglobin 30.8 pg (27.0-31.2); Mean Corpuscular Volume 98.4 fl (81-99); Mean Platelet Volume 9.2 fl (7.4-10.4); Monocytes # 0.4 K/mm3 (0.1-1.0); Monocytes % 8.2 % (1.7-9.3); Neutrophils # 2.5 K/mm3 (1.8-7.8); Neutrophils % 53.6 % (37.0-80.0); Platelet Count 228 K/mm3 (142-424); Red Blood Count 3.59 M/mm3 (4.20-5.40); Red Cell Distribution Width 14.2 % (11.5-17.5); White Blood Count 4.7 K/mm3 (4.8-10.8)
[2023-11-17 06:28] LABS: Anion Gap 7.6 mEq/L (5-15); Blood Urea Nitrogen 15 mg/dl (7-17); Calcium 8.4 mg/dl (8.4-10.2); Carbon Dioxide 23 mmol/L (22.0-30.0); Chloride 109 mmol/L (98-107); Creatinine Clearance Estimated 52 mL/min (50-200); Estimated Glomerular Filt Rate 53 ml/min (>60); GFR (African American) 65 ML/MIN (>60); Glucose 86 mg/dl (74-100); Magnesium 1.8 mg/dl (1.6-2.3); Potassium 3.6 mmoL/L (3.5-5.1); Sodium 136 mmol/L (136-145)
[2023-11-17] MEDS: LEVOTHYROXINE 25MCG (0.025MG) TAB 25 MCG PO (06:55)
[2023-11-17 08:00] VITALS: BP 153/75; PULSE 60; RESP 18; TEMP 36.8; O2SAT 97
[2023-11-17 08:33] LABS: HCV Ab Non Reactive (Non Reactive)
[2023-11-17 08:33] LABS: HBsAg Screen Negative (Negative); HCV Ab Non Reactive (Non Reactive); Hep A Ab, IGM Negative (Negative); Hep B Core Ab, IgM Negative (Negative)
[2023-11-17] MEDS: METOPROLOL TARTRATE 50MG TABLET 75 MG PO ×2 (09:28→20:29)
[2023-11-17] MEDS: SENNOSIDES 8.6MG/DOCUSATE 50MG TABLET 1 TAB PO ×2 (09:28→20:28)
[2023-11-17] MEDS: FUROSEMIDE 20MG TABLET 20 MG PO (09:28)
[2023-11-17] MEDS: AMLODIPINE 5 MG PO (09:29)
[2023-11-17] MEDS: CLOPIDOGREL 75 MG PO (09:29)
[2023-11-17] MEDS: HYDROCHLOROTHIAZIDE 25 MG PO (09:29)
[2023-11-17] MEDS: POLYETHYLENE GLYCOL 3350 17 GM PACKET PO (09:33)
[2023-11-17] MEDS: BISACODYL 10MG SUPP 10 MG RC (09:43)
[2023-11-17 12:00] VITALS: BP 135/55; PULSE 54; RESP 15; TEMP 36.6; O2SAT 92
--- NOTE | 2023-11-17 16:51 | PC.NURSE ---
1650: Pt. was awake, alert, knows name but otherwise somewhat confused. Pt. has not had a bowel movement in several days. Pt. was given Miralax, a suppistory, and senna with no results. Pt. was to be discharged home if she has a bowel movement. Pt. was up and ambulated in the feng with nurse by side. Pt. lost IV access today. Dr. bentley aware and discontinued IV antibiotics. No new IV placed,. Pt. sleeping in the afternoon. eating and drinking well. awaiting a bowel movement before being allowed to go home.
--- NOTE | 2023-11-17 17:33 | EXP.ACUTE.PN ---
Subjective *Date: 11/17/23 *Time: 17:33 Interval history: Had episode of abdominal pain overnight. Responded to Toradol and Tylenol. No vomiting. Still no bowel movement since admission. Stable on room air. Tolerating p.o. intake. Medical Exam Vital signs and Labs for Last 24 Hours: Vital Signs Temp Pulse Pulse Resp BP Pulse Ox O2 Del Method 11/17/23 16:47 Room Air 11/17/23 15:00 Room Air 11/17/23 13:00 Room Air 11/17/23 12:00 54 L 11/17/23 12:00 97.8 F 54 L 15 135/55 L 92 L Room Air 11/17/23 10:52 Room Air 11/17/23 09:00 Room Air 11/17/23 08:00 Room Air 11/17/23 08:00 60 11/17/23 08:00 98.3 F 60 18 153/75 H 97 Room Air 11/17/23 07:00 Room Air 11/17/23 05:00 Room Air 11/17/23 04:00 59 L 11/17/23 04:00 97.3 F L 58 L 16 147/68 H 95 Room Air 11/17/23 03:00 Room Air 11/17/23 01:00 Room Air 11/17/23 00:00 73 11/17/23 00:00 98.3 F 62 18 127/81 96 Room Air 11/16/23 23:00 Room Air 11/16/23 21:00 Room Air 11/16/23 20:00 61 11/16/23 20:00 Room Air 11/16/23 20:00 97.4 F L 65 18 158/58 H 98 Room Air 11/16/23 18:32 Room Air Intake and Output 11/17/23 11/17/23 11/17/23 07:59 15:59 23:59 Intake Total 980 / 980 Output Total 0 / 0 0 / 0 0 / 0 Balance 0 / 980 980 / 980 0 / 980 Intake: Intake, Oral Amount 980 / 980 Output: Output, Urine Amount 0 / 0 0 / 0 0 / 0 Other: Number of Unmeasured Voids 1 1 0 Weight 72.756 kg Patient Weight 11/17/23 23:59 Weight 72.756 kg Laboratory Results - last 24 hr 11/15/23 23:17: Hepatitis C Antibody Non reactive, Hep C Ab Comment Comment 11/16/23 06:07: Hepatitis A IgM Ab Negative, Hep Bs Antigen Negative, Hep B Core IgM Ab Negative, Hepatitis C Antibody Non reactive, Hep C Ab Comment Comment 11/17/23 05:37: WBC 4.7 L, RBC 3.59 L, Hgb 11.1 L, Hct 35.3 L, MCV 98.4, MCH 30.8, MCHC 31.3 L, RDW 14.2, Plt Count 228, MPV 9.2, Neut % (Auto) 53.6, Lymph % (Auto) 34.8, [place] % (Auto) 8.2, Eos % (Auto) 2.3, Baso % (Auto) 1.2, Neut # (Auto) 2.5, Lymph # (Auto) 1.7, [place] # (Auto) 0.4, Eos # (Auto) 0.1, Baso # (Auto) 0.1, Sodium 136, Potassium 3.6, Chloride 109 H, Carbon Dioxide 23, Anion Gap 7.6, BUN 15 D, Creatinine 1.00, Estimated Creat Clear 52, Estimated GFR 53 L, Est GFR ( Amer) 65, Glucose 86, Calcium 8.4, Magnesium 1.8 D I & O for Labs for Last 24 Hours: Intake & Output 11/14/23 11/15/23 11/16/23 11/17/23 23:59 23:59 23:59 23:59 Intake Total 3186 / 3186 980 / 980 Output Total 0 / 0 0 / 0 Balance 3186 / 3186 980 / 980 Weight 74.208 kg 71.327 kg 72.756 kg Microbiology Reports for the Last 24 Hours: Microbiology 11/16/23 01:06 Blood Blood Culture - Preliminary NO GROWTH AFTER 24 HOURS 11/16/23 01:06 Blood Blood Culture - Preliminary NO GROWTH AFTER 24 HOURS Constitutional: Present no acute distress, average body habitus, chronically ill appearing and cooperative Head: Present atraumatic and normocephalic ENT: Present normal exam Respiratory: Present normal respiratory effort; Absent rhonchi, wheezes or crackles Cardiac: Present Reg Rate and Rhythm GI: Present soft, tenderness (Diffuse, nonfocal, interval improvement) and normal bowel sounds; Absent distention or Dukes's sign (female): Present deferred Extremities: Present normal inspection and full ROM Skin: Present intact; Absent erythema Neuro: Present Grossly Intact, alert, awake and moves all extremities Assessment and Plan *Assessment and plan (1) Constipation: Status: Acute Category: Medical Code(s): K59.00 - Constipation, unspecified (2) RUQ pain: Status: Acute Category: Medical Code(s): R10.11 - Right upper quadrant pain (3) Acute UTI: Status: Acute Category: Medical Code(s): N39.0 - Urinary tract infection, site not specified (4) Type 2 diabetes mellitus: Status: Chronic Category: Medical Code(s): E11.9 - Type 2 diabetes mellitus without complications (5) Hypertension: Status: Chronic Qualifiers: Hypertension type: essential hypertension Qualified Code(s): I10 - Essential (primary) hypertension Category: Medical Code(s): I10 - Essential (primary) hypertension (6) Hypothyroidism (acquired): Status: Chronic Category: Medical Code(s): E03.9 - Hypothyroidism, unspecified (7) Memory deficit: Status: Acute Category: Medical Code(s): R41.3 - Other amnesia (8) CAD (coronary artery disease), [place] coronary artery: Status: Acute Qualifiers: [place] vs. transplanted heart: [place] heart Associated angina: unspecified whether angina present Qualified Code(s): I25.10 - Atherosclerotic heart disease of [place] coronary artery without angina pectoris Category: Medical Code(s): I25.10 - Atherosclerotic heart disease of [place] coronary artery without angina pectoris Plan 78-year-old female with past medical history of diabetes, hypertension, dementia, CAD on Plavix with cardiac stents. Patient presents with recurrent right upper quadrant pain, and recurrent abnormal CT abdomen/pelvis inferring possible acute cholecystitis. Patient afebrile with white blood count 5.7 at time of presentation. Showing improvement clinically. Still has not had a bowel movement however. Uncomfortable sending patient home without having bowel movement given her abdominal pain. Aggressive bowel regimen today. Problems addressed as follows: RUQ pain rule out acute cholecystitis: -I personally reviewed 11/15 CT abdomen/pelvis showing thickened gallbladder, and partially collapsed gallbladder. -Appears to have decent stool burden. Increase bowel regimen to MiraLAX twice daily, docusate senna twice daily. If no bowel movement by dinner, will administer enema this evening. Monitor for improvement in pain. -Discussed case with surgery, no plan for intervention. Clinically patient does not have cholecystitis. Will discontinue IV antibiotics. - White count normal at 4.7. Advance to regular diet -Repeat CBC, CMP, magnesium for the morning. UTI -11/15 UA shows +2 leuk esterase, WBC 20-50, and +1 bacteria. Patient also complaining of several days nausea, hot/cold spells at home. -Difficult stick for IVs, will transition to cefdinir 300 mg twice daily orally as she lost her IV. Discontinue Zosyn. Hypertension: CAD: - Continue home Lasix, HCTZ, amlodipine 5 mg daily. -Resume Plavix 75 mg daily and aspirin 81 mg daily. Diabetes: A1c normal at 5.6. Discontinue insulin and fingersticks Hypothyroidism: continue Synthroid 25 mcg p.o. daily during hospitalization. Dementia: Patient very forgetful, and frequently asking daughter to help her remember medical details. Will continue home management of dementia. Full code Full liquid diet
--- NOTE | 2023-11-17 18:31 | PC.NURSE ---
1800: After patient ate dinner, Pt. ambulated in the feng with nurse. Tolerated well. Pt. states she was starting to pass some gas.
[2023-11-17 19:38] VITALS: BP 159/65; PULSE 64; RESP 16; TEMP 36.9; O2SAT 96
[2023-11-17 20:00] VITALS: PULSE 63; PULSE 64; RESP 16; O2SAT 96
[2023-11-17] MEDS: SODIUM PHOS/BIPHOSPHATE FLEET 133ML ENEMA 133 ML RC (20:27)
[2023-11-17] MEDS: ATORVASTATIN 40MG TABLET 40 MG PO (20:27)
[2023-11-17] MEDS: CEFDINIR 300MG CAPSULE 300 MG PO (20:28)
[2023-11-17] MEDS: SODIUM CHLORIDE 0.9% 10ML VIAL 10 ML IV (22:00)
[2023-11-17] MEDS: PANTOPRAZOLE 40MG VIAL 40 MG IV (22:00)
--- NOTE | 2023-11-17 23:34 | PC.NURSE ---
After receiving an enema this shift, the patient had an urge to defecate, and audible borb[place]mi from her bowels could be heard. Patient was assisted to the bathroom by nurse and daughter. At this time, patient was able to pass a scant amount of stool and lots of flatulence. About 5 to 6 hard, brownish-green lumps were observed.
[2023-11-18] VITALS: BP 151/72; PULSE 59; PULSE 62; RESP 17; TEMP 37.3; O2SAT 96
[2023-11-18 04:00] VITALS: BP 120/51; PULSE 60; RESP 16; TEMP 36.6; O2SAT 96; BMI 28.4
--- NOTE | 2023-11-18 05:06 | PC.NURSE ---
Patient is periodically alert and oriented, but short-term memory is impaired. Patient is pleasantly confused and tends to mix up the time of day. Patient's family has remained at bedside throughout the night. Patient was observed to have eyes closed, respirations even and unlabored on room air with occasional snoring, and no apparent distress through the night. Patient's lung sounds were clear upon auscultation; however, before administering the ordered fleet enema, the patient's bowel sounds were very hypoactive. She did not report any abdominal pain, nor any other complaints this shift. Patient's telemetry was discontinued this shift by Dr Rodriguez. Patient has been ambulating to the bathroom with standby assistance with staff and family; patient tolerates ambulation well. A new IV was inserted into the left antecubital this shift after losing IV access during the previous shift. She has received her scheduled medications per MAR, including the enema of which she requested to take after her shower. After sometime, patient voiced that she wanted to try to defecate (see prior note). Defecation was successful this shift and audible bowel sounds could be heard; separate lumps of stool was observed. Patient reported that she was able to defecate a little more after her first go. Patient was educated about the importance of moving around and drinking plenty of fluids to promote increased peristalsis and ease potential constipation. At this time, patient is resting supine in bed. No acute changes noted thus far. Call light within reach.
[2023-11-18] MEDS: LEVOTHYROXINE 25MCG (0.025MG) TAB 25 MCG PO (06:29)
[2023-11-18 06:52] LABS: Basophils # 0.1 K/mm3 (0-0.2); Basophils % 0.5 % (0.1-2.0); Eosinophils # 0.1 K/mm3 (0.0-0.4); Eosinophils % 1.1 % (0.1-12.0); Hematocrit 38.3 % (37.0-47.0); Hemoglobin 12.1 g/dL (12.2-16.2); Lymphocytes # 1.2 K/mm3 (0.7-4.5); Lymphocytes % 12.1 % (10-50); Mean Corpuscular HGB Conc 31.7 g/dL (31.8-35.4); Mean Corpuscular Hemoglobin 30.2 pg (27.0-31.2); Mean Corpuscular Volume 95.1 fl (81-99); Mean Platelet Volume 7.9 fl (7.4-10.4); Monocytes # 0.6 K/mm3 (0.1-1.0); Monocytes % 6.4 % (1.7-9.3); Neutrophils # 7.9 K/mm3 (1.8-7.8); Platelet Count 254 K/mm3 (142-424); Red Blood Count 4.02 M/mm3 (4.20-5.40); Red Cell Distribution Width 13.5 % (11.5-17.5); White Blood Count 9.8 K/mm3 (4.8-10.8)
[2023-11-18] MEDS: ONDANSETRON 4MG/2ML VIAL 4 MG IV (07:05)
[2023-11-18 07:13] LABS: Alanine Aminotransferase 21 U/L (12-78); Albumin Level 3.8 g/dl (3.5-5.0); Albumin/Globulin Ratio 1.3 (1.1-1.8); Alkaline Phosphatase 72 U/L (38-126); Anion Gap 4.6 mEq/L (5-15); Aspartate Amino Transferase 35 U/L (14-36); Bilirubin,Total 0.5 mg/dl (0.2-1.3); Blood Urea Nitrogen 17 mg/dl (7-17); Calcium 8.7 mg/dl (8.4-10.2); Carbon Dioxide 29 mmol/L (22.0-30.0); Chloride 107 mmol/L (98-107); Creatinine Clearance Estimated 52 mL/min (50-200); Estimated Glomerular Filt Rate 60 ml/min (>60); GFR (African American) 73 ML/MIN (>60); Glucose 94 mg/dl (74-100); Potassium 3.6 mmoL/L (3.5-5.1); Sodium 137 mmol/L (136-145); Total Protein,Serum 6.8 g/dl (6.3-8.2)
--- NOTE | 2023-11-18 07:23 | P.DS_ITS ---
General Admission date:: 11/16/23 Discharge date: 11/18/23 HPI HPI HPI: This is an 78-year-old female seen in consultation after admission for possible cholecystitis. She presented overnight to the emergency department with documented nausea, epigastric pain, and right upper quadrant pain. The patient is a poor historian but currently states she is hurting in the right shoulder . She currently complains of no abdominal pain. A family member at the bedside states that she was hurting everywhere and doubled over in pain last night . Seemingly, the patient had shoulder pain, chest pain, abdominal pain, and back pain. Prior evaluation in July of this year included a CT scan that revealed a prominent gallbladder with subtle fat stranding but no stones. A repeat CT scan overnight revealed stable findings with partial collapse of the gallbladder and mild intrahepatic ductal dilatation. During hospitalization in July and during emergency department evaluation for chest pain in September recommendations were made for cardiology evaluation. Outpatient cardiology evaluation was never completed. In addition, the patient was evaluated by the surgical service in July prior to discharge at which time formal right upper quadrant ultrasound and cardiology preoperative evaluation are recommended. Formal right upper quadrant ultrasound was not obtained and the patient did not maintain outpatient follow-up. Forwarded from admission H&P: Patient with past medical history of acute cholecystitis July 2023, diabetes, hypertension, hypothyroidism, dementia, CAD with cardiac stents on aspirin/Plavix. Daughter states that patient suffers from severe memory deficits, and frequently forgets to take medications. Daughter states she personally administered medications to patient yesterday. Daughter brought patient to hospital secondary to right upper quadrant pain, nausea, hot/cold spells, and increased memory deficits occurring over past 7 days. Per daughter she did not even recognize her granddaughter this morning and that is not like her. Patient initially denied any acute complaints, but when reminded by her daughter during interview agreed that she suffered from aforementioned complaints. Admits to history of dementia problems over past 12 months. States she lives with her daughter now for support. Denies chest pain, palpitations, dysuria, hematuria, diarrhea, constipation, blurry vision, headaches. Confirms she was evaluated July 2023 for acute cholecystitis, and states she completed complete outpatient prescribed oral antibiotic treatment course. States that she would like to be full code during hospitalization. Of special note, patient denied any abdominal discomfort during physical examination by Dr. Rodriguez in emergency room. Negative Dukes sign and denied right upper quadrant pain. Daughter states that patient suffered from right upper quadrant pain prior to current hospitalization. Hospital Course Hospital Course Hospital Course: 78-year-old female with past medical history of diabetes, hypertension, dementia, CAD on Plavix with cardiac stents. Patient presents with recurrent right upper quadrant pain, and recurrent abnormal CT abdomen/pelvis inferring possible acute cholecystitis. Patient afebrile with white blood count 5.7 at time of presentation. Monitored for 2 days. Low concern for infection in abdomen. Concerned that her pain was from constipation. Has had bowel movements prior to discharge. Tolerating p.o. intake. Symptoms improving. Stable to discharge home with outpatient follow-up with primary care and surgery. Problems addressed as follows: RUQ pain rule out acute cholecystitis: Constipation -I personally reviewed 11/15 CT abdomen/pelvis showing thickened gallbladder, and partially collapsed gallbladder. Appears to have decent stool burden. Increase bowel regimen to MiraLAX twice daily, docusate senna twice daily. Finally had bowel movements after aggressive regimen. Belly feeling better. Discussed case with surgery, no plan for intervention. Clinically patient does not have cholecystitis. Discontinued IV antibiotics. White count remained normal during admission. 9.8 on day of discharge. Kidney function monitored closely. Tolerating p.o. intake with no discomfort. Follow-up with surgery as an outpatient. UTI: 11/15 UA shows +2 leuk esterase, WBC 20-50, and +1 bacteria. Patient also complaining of several days nausea, hot/cold spells at home. Discontinued Zosyn. Transition to cefdinir. Will complete 5 days total of antibiotics with 300 mg twice daily Hypertension/CAD: Continue home Lasix, HCTZ, amlodipine 5 mg daily, Plavix 75 mg daily and aspirin 81 mg daily. Diabetes: A1c normal at 5.6. No indication for treatment Hypothyroidism: continue Synthroid 25 mcg p.o. daily during hospitalization. Dementia: Patient very forgetful, and frequently asking daughter to help her remember medical details. Will continue home management of dementia. Exam Data for Last 24 hours Vital signs and Labs for Last 24 Hours: Temp Pulse Resp BP Pulse Ox O2 Del Method 98.3 F 60 18 153/75 H 97 Room Air 11/17/23 08:00 11/17/23 08:00 11/17/23 08:00 11/17/23 08:00 11/17/23 08:00 11/17/23 10:52 Laboratory Results - last 24 hr 11/15/23 23:17: Hepatitis C Antibody Non reactive, Hep C Ab Comment Comment 11/16/23 06:07: Hepatitis A IgM Ab Negative, Hep Bs Antigen Negative, Hep B Core IgM Ab Negative, Hepatitis C Antibody Non reactive, Hep C Ab Comment Comment 11/16/23 14:42: POC Glucose 105 11/17/23 05:37: WBC 4.7 L, RBC 3.59 L, Hgb 11.1 L, Hct 35.3 L, MCV 98.4, MCH 30.8, MCHC 31.3 L, RDW 14.2, Plt Count 228, MPV 9.2, Neut % (Auto) 53.6, Lymph % (Auto) 34.8, [place] % (Auto) 8.2, Eos % (Auto) 2.3, Baso % (Auto) 1.2, Neut # (Auto) 2.5, Lymph # (Auto) 1.7, [place] # (Auto) 0.4, Eos # (Auto) 0.1, Baso # (Auto) 0.1, Sodium 136, Potassium 3.6, Chloride 109 H, Carbon Dioxide 23, Anion Gap 7.6, BUN 15 D, Creatinine 1.00, Estimated Creat Clear 52, Estimated GFR 53 L, Est GFR ( Amer) 65, Glucose 86, Calcium 8.4, Magnesium 1.8 D I & O for Last 24 hours: Intake & Output 11/14/23 11/15/23 11/16/23 11/17/23 23:59 23:59 23:59 23:59 Intake Total 3186 / 3186 740 / 740 Output Total 0 / 0 0 / 0 Balance 3186 / 3186 740 / 740 Weight 74.208 kg 71.327 kg 72.756 kg Microbiology Reports for the Last 24 Hours: Microbiology 11/16/23 01:06 Blood Blood Culture - Preliminary NO GROWTH AFTER 24 HOURS 11/16/23 01:06 Blood Blood Culture - Preliminary NO GROWTH AFTER 24 HOURS Constitutional Constitutional: no acute distress, obese and cooperative *Routine HEENT Exam Head: Present normocephalic Eye: Present EOMI and PERRL ENT: Present mucous membranes moist *Routine Neck Exam Neck: Present supple; Absent lymphadenopathy *Routine Respiratory Exam Respiratory: Present CTA bilaterally *Routine Cardiovascular Exam Cardiovascular: Present RRR and murmur *Routine Abdominal Exam Abdominal: Present soft, normoactive bowel sounds and tenderness (Minimal, nonfocal); Absent rebound, guarding or firm *Routine Rectal Exam Patient deferred: visual exam *Routine Exam Patient deferred: external exam *Routine Extremities Exam Extremities: Absent cyanosis, clubbing or edema *Routine Skin Exam Skin: Present warm; Absent rash *Routine Neurological Exam Neurological: Present alert, oriented X3 and moving all extremities; Absent altered mental status Results Data Completed and Pending Labs on day of discharge: Labs from last 24 hours 11/17/23 11/16/23 11/16/23 05:37 14:42 06:07 WBC 4.7 L RBC 3.59 L Hgb 11.1 L Hct 35.3 L MCV 98.4 MCH 30.8 MCHC 31.3 L RDW 14.2 Plt Count 228 MPV 9.2 Neut % (Auto) 53.6 Lymph % (Auto) 34.8 [place] % (Auto) 8.2 Eos % (Auto) 2.3 Baso % (Auto) 1.2 Neut # (Auto) 2.5 Lymph # (Auto) 1.7 [place] # (Auto) 0.4 Eos # (Auto) 0.1 Baso # (Auto) 0.1 Sodium 136 Potassium 3.6 Chloride 109 H Carbon Dioxide 23 Anion Gap 7.6 BUN 15 D Creatinine 1.00 Estimated Creat Clear 52 Estimated GFR 53 L Est GFR ( Amer) 65 Glucose 86 POC Glucose 105 Calcium 8.4 Magnesium 1.8 D Hepatitis A IgM Ab Negative Hep Bs Antigen Negative Hep B Core IgM Ab Negative Hepatitis C Antibody Non reactive Hep C Ab Comment Comment 11/15/23 23:17 WBC RBC Hgb Hct MCV MCH MCHC RDW Plt Count MPV Neut % (Auto) Lymph % (Auto) [place] % (Auto) Eos % (Auto) Baso % (Auto) Neut # (Auto) Lymph # (Auto) [place] # (Auto) Eos # (Auto) Baso # (Auto) Sodium Potassium Chloride Carbon Dioxide Anion Gap BUN Creatinine Estimated Creat Clear Estimated GFR Est GFR ( Amer) Glucose POC Glucose Calcium Magnesium Hepatitis A IgM Ab Hep Bs Antigen Hep B Core IgM Ab Hepatitis C Antibody Non reactive Hep C Ab Comment Comment Preliminary micro results at discharge 11/16/23 01:06 Blood Culture - Preliminary Blood NO GROWTH AFTER 24 HOURS 11/16/23 01:06 Blood Culture - Preliminary Blood NO GROWTH AFTER 24 HOURS DS: Diagnosis Discharge Diagnosis (1) RUQ pain: Status: Acute Code(s): R10.11 - Right upper quadrant pain (2) Acute UTI: Status: Acute Code(s): N39.0 - Urinary tract infection, site not specified (3) Type 2 diabetes mellitus: Status: Chronic Code(s): E11.9 - Type 2 diabetes mellitus without complications (4) Hypertension: Status: Chronic Code(s): I10 - Essential (primary) hypertension Qualifiers: Hypertension type: essential hypertension Qualified Code(s): I10 - Essential (primary) hypertension (5) Hypothyroidism (acquired): Status: Chronic Code(s): E03.9 - Hypothyroidism, unspecified (6) Memory deficit: Status: Acute Code(s): R41.3 - Other amnesia (7) CAD (coronary artery disease), [place] coronary artery: Status: Acute Code(s): I25.10 - Atherosclerotic heart disease of [place] coronary artery without angina pectoris Qualifiers: Associated angina: unspecified whether angina present [place] vs. transplanted heart: [place] heart Qualified Code(s): I25.10 - Atherosclerotic heart disease of [place] coronary artery without angina pectoris Meds Home Medications and Allergies Home Medications ?Medication ?Instructions ?Recorded ?Confirmed ?Type metoprolol tartrate 50 mg tablet 75 mg PO BID Hypertension 04/16/18 11/16/23 History isosorbide mononitrate 30 mg 30 mg PO TID Hypertension 09/30/19 11/16/23 History tablet,extended release 24 hr furosemide 20 mg tablet 20 mg PO DAILY High blood pressure 10/08/20 11/16/23 History aspirin 81 mg tablet,delayed 81 mg PO DAILY [facility] 03/22/23 11/16/23 Rx release tabs clopidogrel 75 mg tablet 75 mg PO DAILY platelet inhibitor 03/22/23 11/16/23 Rx #90 tabs hydrochlorothiazide 25 mg tablet 25 mg PO DAILY High blood pressure 03/22/23 11/16/23 Rx #90 tabs levothyroxine 25 mcg tablet 25 mcg PO DAILY #90 tabs 03/22/23 11/16/23 Rx (Synthroid) losartan 100 mg tablet 100 mg PO DAILY #90 tabs 05/04/23 11/16/23 Rx nitroglycerin 0.4 mg sublingual 0.4 mg sublingual Q5MINP PRN Chest 07/29/23 11/16/23 History tablet Pain amlodipine 5 mg tablet 5 mg PO DAILY 11/16/23 11/16/23 History cyanocobalamin (vitamin B-12) 1,000 mcg PO DAILY 11/16/23 11/16/23 History 1,000 mcg tablet atorvastatin 40 mg tablet 40 mg PO HS 30 days #30 tabs 11/18/23 Rx cefdinir 300 mg capsule 300 mg PO BID 3 days #6 caps 11/18/23 Rx magnesium citrate 300 ml PO DAILY PRN constipation 11/18/23 Rx #296 mL sennosides 8.6 mg-docusate sodium 1 tab PO BID PRN constipation 30 11/18/23 Rx 50 mg tablet (Stimulant Laxative days #60 tabs Plus) New Prescriptions to Start Prescriptions: Fredy De Paz cefdinir Fredy Meléndez magnesium citrate Fredy Meléndez sennosides-docusate sodium [Stimulant Laxative Plus] Fredy Meléndez Allergies Allergy/AdvReac Type Severity Reaction Status Date / Time morphine Allergy Intermediate Verified 05/04/23 14:15 phenobarbital Allergy Intermediate Verified 05/04/23 14:15 prochlorperazine AdvReac akathesia Verified 09/23/23 20:27 [From Compazine] Discharge Plan Disposition Patient Disposition: Home Health Service Condition: Fair Discharge Order Discharge Orders: Discharge Order (Routine); Ordered 11/18/23 Ordered By: Fredy Meléndez Follow up Plan Follow up with: Ciro Campos MD [Primary Care Provider] - 11/30/23 9:45 am Scot Anderson MD [Staff Physician] - 11/29/23 9:45 am (The patient can follow-up with me or with Dr. Rosales as she has been seen in consultation by both) Prescriptions/Medication Reconciliation: New atorvastatin 40 mg Tablet 40 mg PO HS 30 Days Qty: 30 0RF sennosides-docusate sodium [Stimulant Laxative Plus] 8.6-50 mg Tablet 1 tab PO BID PRN (Reason: constipation) 30 Days Qty: 60 0RF cefdinir 300 mg Capsule 300 mg PO BID 3 Days Qty: 6 0RF magnesium citrate Solution 300 ml PO DAILY PRN (Reason: constipation) Qty: 296 0RF Rx Instructions: use if no BM in >2 days Continued isosorbide mononitrate 30 mg tablet extended release 24 hr 30 mg PO TID Rx Instructions: verified directions with pharmacy levothyroxine [Synthroid] 25 mcg tablet 25 mcg PO DAILY Qty: 90 3RF clopidogrel 75 mg tablet 75 mg PO DAILY Qty: 90 3RF aspirin 81 mg tablet,delayed release (DR/EC) 81 mg PO DAILY Qty: 100 10RF hydrochlorothiazide 25 mg tablet 25 mg PO DAILY Qty: 90 3RF nitroglycerin 0.4 mg tablet, sublingual 0.4 mg sublingual Q5MINP PRN (Reason: Chest Pain) metoprolol tartrate 50 MG tablet 75 mg PO BID furosemide 20 MG tablet 20 mg PO DAILY cyanocobalamin (vitamin B-12) 1,000 mcg tablet 1,000 mcg PO DAILY Patient Comments: TAKE 1 TABLET BY MOUTH EVERY DAY amlodipine 5 mg tablet 5 mg PO DAILY Held losartan 100 mg tablet 100 mg PO DAILY Qty: 90 3RF Hold Instructions: pending follow-up with PCP. Resume prior to follow-up if home systolic BP >160 Discontinued clonidine HCl 0.1 MG tablet 0.1 mg PO BID Problem Reconciliation Problems Reviewed?: Yes Patient Discharge Instructions ACTIVITY: Continue current activity DIET: continue same diet Patient Instructions: DI for Cholecystitis Print Language: [place] Providers Primary Care Provider: Ciro Campos Admit Provider: Last Rodriguez Attending Provider: Last Rodriguez
[2023-11-18 07:59] VITALS: BP 169/67; PULSE 66; RESP 18; TEMP 37; O2SAT 91
[2023-11-18 08:24] LABS: Magnesium 1.6 mg/dl (1.6-2.3)
[2023-11-18] MEDS: PHENAZOPYRIDINE 200MG TABLET 100 MG PO (08:50)
[2023-11-18] MEDS: POLYETHYLENE GLYCOL 3350 17 GM PACKET PO (08:50)
[2023-11-18] MEDS: SENNOSIDES 8.6MG/DOCUSATE 50MG TABLET 1 TAB PO (08:50)
[2023-11-18] MEDS: FUROSEMIDE 20MG TABLET 20 MG PO (08:50)
[2023-11-18] MEDS: METOPROLOL TARTRATE 50MG TABLET 75 MG PO (08:50)
[2023-11-18] MEDS: HYDROCHLOROTHIAZIDE 25 MG PO (08:51)
[2023-11-18] MEDS: CLOPIDOGREL 75 MG PO (08:51)
[2023-11-18] MEDS: AMLODIPINE 5 MG PO (08:52)
[2023-11-18] MEDS: CEFDINIR 300MG CAPSULE 300 MG PO (09:00)
--- NOTE | 2023-11-20 14:37 | CARE MANAGER ---
Attempted to contact patient related to hospital discharge and the number is not reachable . MOUNIKA Cutler
== END 2023-11-18 11:23 | disposition home health service (06) ==
LOC: ER 11-16 01:19 → 2ND 11-16 01:57
PROVIDERS: Internal Medicine Adolescent Medicine; Admitting Provider Internal Medicine; Emergency Provider Emergency Medicine; PCP Family Medicine; Visit Provider Internal Medicine
DX: R10.11 Right upper quadrant pain (principal); N39.0 Urinary tract infection, site not specified; E11.9 Type 2 diabetes mellitus without complications; I10 Essential (primary) hypertension; E03.9 Hypothyroidism, unspecified; F03.90 Unspecified dementia, unspecified severity, without behavioral disturbance, psychotic disturbance, mood disturbance, and anxiety; R41.3 Other amnesia; I25.10 Atherosclerotic heart disease of native coronary artery without angina pectoris; K59.00 Constipation, unspecified; Z79.899 Other long term (current) drug therapy; Z79.02 Long term (current) use of antithrombotics/antiplatelets; Z95.5 Presence of coronary angioplasty implant and graft
CPT/HCPCS: 36415; 74177; 74181; 76376; 76705; 80048; 80053; 80074; 81001; 82962; 83036; 83605; 83690; 83735; 84145; 84484; 85025; 86140; 86803; 87040; 87086; 87389; 93005; 93306; 99285; G0378; J1885; J2405; J2543; J2550; J3475; J7030; Q9967

== ENCOUNTER 2024-02-16 16:45 | Emergency (ER) | payer MEDICARE, SELFPAY ==
[2024-02-16] VITALS (7 sets, daily range): BP systolic 105–197; BP diastolic 32–65; PULSE 52–63; RESP 14–20; TEMP 36.7; O2SAT 95–98; BMI 31.8
--- NOTE | 2024-02-16 16:46 | ECG_ITS ---
APPROVED REPORT Exam: Resting ECG HR:65 bpm ECG Measurements Heart Rate 65 AXES VT 185 P -42 QRSd 90 QRS -7 QT 435 T -9 QTc 446 Conclusion SINUS RHYTHM VOLTAGE CRITERIA FOR LVH [MEETS CRITERIA IN ONE OF: R(aVL), S(V1), R(V5), R(V5/V6)+S(V1)] No acute STEMI Electronically signed by : SARAHY MIRANDA, 02/17/2024 00:10:47
[2024-02-16 17:51] LABS: Microscopic, Urine URINE MICROSCOPIC (MICROSCOPIC)
[2024-02-16] MEDS: ACETAMINOPHEN 1,000MG/100ML VIAL 1000 MG IV (17:51)
[2024-02-16] MEDS: METOCLOPRAMIDE HCL 10MG/2ML VIAL 5 MG IVP (17:52)
[2024-02-16] MEDS: FAMOTIDINE 20MG/2ML VIAL 20 MG IV (17:52)
[2024-02-16 17:53] LABS: Appearance,Urine CLEAR (Clear); Bilirubin,Urine Negative (Negative); Blood, Urine Negative (Negative); Color,Urine YELLOW (Yellow); Glucose,Urine (UA) Negative (Negative); Ketones,Urine Negative (Negative); Leukocyte Esterase,Urine 1+ (Negative); Nitrate,Urine Negative (Negative); Protein,Urine Negative (Negative); Specific Gravity, Urine 1.015 (1.005-1.030); Urobilinogen,Urine 0.2 EU/dl (0.2)
[2024-02-16 18:03] LABS: Basophils # 0.1 K/mm3 (0-0.2); Basophils % 0.9 % (0.1-2.0); Eosinophils # 0.5 K/mm3 (0.0-0.4); Eosinophils % 6.6 % (0.1-12.0); Hematocrit 34.1 % (37.0-47.0); Lymphocytes # 1.2 K/mm3 (0.7-4.5); Lymphocytes % 15.8 % (10-50); Mean Corpuscular HGB Conc 32.3 g/dL (31.8-35.4); Mean Corpuscular Hemoglobin 30.4 pg (27.0-31.2); Mean Corpuscular Volume 94.2 fl (81-99); Mean Platelet Volume 11.3 fl (7.4-10.4); Monocytes # 0.6 K/mm3 (0.1-1.0); Monocytes % 7.4 % (1.7-9.3); Neutrophils # 5.3 K/mm3 (1.8-7.8); Platelet Count 268 K/mm3 (142-424); Red Blood Count 3.62 M/mm3 (4.20-5.40); Red Cell Distribution Width 14.3 % (11.5-17.5); White Blood Count 7.7 K/mm3 (4.8-10.8)
--- NOTE | 2024-02-16 18:04 | ED_ITS ---
Discharge Plan Disposition Patient Disposition: Home, Self-Care Condition: Good Prescriptions Prescriptions: No Action isosorbide mononitrate 30 mg tablet extended release 24 hr 30 mg PO TID Rx Instructions: verified directions with pharmacy levothyroxine [Synthroid] 25 mcg tablet 25 mcg PO DAILY Qty: 90 3RF clopidogrel 75 mg tablet 75 mg PO DAILY Qty: 90 3RF aspirin 81 mg tablet,delayed release (DR/EC) 81 mg PO DAILY Qty: 100 10RF hydrochlorothiazide 25 mg tablet 25 mg PO DAILY Qty: 90 3RF losartan 100 mg tablet 100 mg PO DAILY Qty: 90 3RF methylprednisolone [Medrol (Hao)] 4 mg tablets,dose pack 4 mg PO DAILY Qty: 21 0RF ondansetron 4 mg tablet,disintegrating 4 mg PO Q8H PRN (Reason: nausea and vomiting) Qty: 30 0RF atorvastatin 40 mg tablet 40 mg PO HS 30 Days Qty: 90 4RF amoxicillin-pot clavulanate [Augmentin] 500-125 mg tablet 1 tab PO BID Qty: 14 0RF amiodarone 200 mg tablet 200 mg PO DAILY apixaban 5 mg tablet 5 mg PO BID donepezil 5 mg tablet 5 mg PO DAILY nitroglycerin 0.4 mg tablet, sublingual 0.4 mg sublingual Q5MINP PRN (Reason: Chest Pain) metoprolol tartrate 50 MG tablet 75 mg PO BID furosemide 20 MG tablet 20 mg PO DAILY cyanocobalamin (vitamin B-12) 1,000 mcg tablet 1,000 mcg PO DAILY Patient Comments: TAKE 1 TABLET BY MOUTH EVERY DAY amlodipine 5 mg tablet 5 mg PO DAILY sennosides-docusate sodium [Stimulant Laxative Plus] 8.6-50 mg Tablet 1 tab PO BID PRN (Reason: constipation) 30 Days Qty: 60 0RF magnesium citrate Solution 300 ml PO DAILY PRN (Reason: constipation) Qty: 296 0RF Rx Instructions: use if no BM in >2 days Referrals Follow up/Referrals: Ciro Campos MD [Primary Care Provider] - See instructions Activity Restrictions/Add. Instructions Additional Instructions/Restrictions: You were evaluated in the emergency department today. You were incidentally found to have a lesion in your lung, for which I recommend close follow-up with primary care. Please also follow-up with your primary care provider for your recurrent and chronic abdominal pain. Return to the emergency department right away for new or worsening symptoms. Clinical Impressions Clinical Impression: Chest pain, Abdominal pain, Right lower lobe lung mass, CAD (coronary artery disease), D-dimer, elevated Print Language Print Language: [place] Zeal[place] Discharge ED Provider: Tayler Dc General Adult HPI General Chief complaint: Chest Pain Stated complaint: CHEST PAIN Time Seen by Provider: 02/16/24 16:49 Mode of Arrival: Wheelchair Source of Information: Patient Limitations: No Limitations Description of Symptoms (Recalled from ER Triage Doc. by RN): pt presents to ED with c/o headache, right and left ear pain, chest pain, abdominal pain. symptoms have began at various times. pt reports that she has been unable to get into her pcp office. History of Present Illness HPI narrative: This patient is an 78-year-old female with a history of hypertension, type 2 diabetes, CAD, chronic abdominal pain presenting to the emergency department for evaluation with concern for being sick. Patient states that she is sick in the head, sick in my belly, sick everywhere. She states that her belly is hurting all over. She knows she has been feeling this way since yesterday. She notes nausea. She denies any significant changes in bowel movements. She denies any urinary symptoms. She denies any other concerns or complaints on my assessment. On medical record review, she was seen by her primary care provider yesterday for stomach issues, which she had complained of since a fall back in July. Actually admitted the patient to the hospital for further evaluation and management of this, and she was ultimately deemed to be appropriate for discharge home after reassuring workup and assessment. Related Data Home Medications ?Medication ?Instructions ?Recorded ?Confirmed metoprolol tartrate 50 mg tablet 75 mg PO BID Hypertension 04/16/18 02/15/24 isosorbide mononitrate 30 mg 30 mg PO TID Hypertension 09/30/19 02/15/24 tablet,extended release 24 hr furosemide 20 mg tablet 20 mg PO DAILY High blood pressure 10/08/20 02/15/24 nitroglycerin 0.4 mg sublingual 0.4 mg sublingual Q5MINP PRN Chest 07/29/23 02/15/24 tablet Pain amlodipine 5 mg tablet 5 mg PO DAILY 11/16/23 02/15/24 cyanocobalamin (vitamin B-12) 1,000 mcg PO DAILY 11/16/23 02/15/24 1,000 mcg tablet amiodarone 200 mg tablet 200 mg PO DAILY 02/06/24 02/15/24 apixaban 5 mg tablet 5 mg PO BID 02/06/24 02/15/24 donepezil 5 mg tablet 5 mg PO DAILY 02/06/24 02/15/24 Previous Rx's ?Medication ?Instructions ?Recorded aspirin 81 mg tablet,delayed 81 mg PO DAILY [facility] 03/22/23 release tabs clopidogrel 75 mg tablet 75 mg PO DAILY platelet inhibitor 03/22/23 #90 tabs hydrochlorothiazide 25 mg tablet 25 mg PO DAILY High blood pressure 03/22/23 #90 tabs levothyroxine 25 mcg tablet 25 mcg PO DAILY #90 tabs 03/22/23 (Synthroid) losartan 100 mg tablet 100 mg PO DAILY #90 tabs 05/04/23 magnesium citrate 300 ml PO DAILY PRN constipation 11/18/23 #296 mL sennosides 8.6 mg-docusate sodium 1 tab PO BID PRN constipation 30 11/18/23 50 mg tablet (Stimulant Laxative days #60 tabs Plus) atorvastatin 40 mg tablet 40 mg PO HS 30 days #90 tabs 01/12/24 amoxicillin 500 mg-potassium 1 tab PO BID #14 tabs 02/02/24 clavulanate 125 mg tablet (Augmentin) methylprednisolone 4 mg tablets in 4 mg PO DAILY #21 tabs 02/15/24 a dose pack (Medrol (Hao)) ondansetron 4 mg disintegrating 4 mg PO Q8H PRN nausea and 02/15/24 tablet vomiting #30 tabs Allergies Allergy/AdvReac Type Severity Reaction Status Date / Time morphine Allergy Intermediate Verified 02/15/24 15:42 phenobarbital Allergy Intermediate Verified 02/15/24 15:42 prochlorperazine (From AdvReac akathesia Verified 02/15/24 15:42 Compazine) [facility] Disclaimer: The information contained in this section may have been updated after the patient was seen, as this information can be updated by other users. Medical History Noncompliance with medication regimen Edema of right lower extremity CAD (coronary artery disease), [place] coronary artery Memory deficit Type 2 diabetes mellitus Hypertension Hypothyroidism (acquired) Rhabdomyolysis Neck pain Renal failure Sciatic leg pain Abdominal pain Surgical History Hx of right coronary artery stent placement Family History Other Cancer Diabetes Kidney disease Social History Smoking Status: Never smoker alcohol intake: never substance use type: denies use current occupational status: retired Travel in the last 8 weeks: None household members: none caffeine: Yes Have you lived/traveled outside [place] in past 30 days?: No Contact w/someone who lives/traveled outside US past 30 days?: No Exposure to someone with infectious disease in past 14 days?: No Do you have a fever (greater than 100.4 F or 38 C)?: No Have you tested positive for COVID-19: No Exposed to someone with COVID-19 in past 14 days?: No Do you have a sore throat?: No Do you have a cough?: No Do you have any weakness?: No Do you have any diarrhea?: No Are you experiencing any unusual bleeding?: No Do you have any muscle aches/pain?: No Do you have any abdominal pain?: No Are you experiencing loss of taste or smell?: No Other Medical History Have you received the Flu Vaccine for this season: No Have you received the Pneumonia Vaccine: No ROS Obtained: Yes All systems reviewed & no additional complaints except as documented Physical Exam General General appearance: alert, in no apparent distress and obese Head Head exam: atraumatic and normocephalic Eye Eye exam: Present normal appearance, PERRL and EOMI ENT ENT exam: Present normal exam, normal oropharynx, mucous membranes moist and normal external ear exam Neck Neck exam: Present normal inspection, full ROM and trachea midline; Absent tenderness Chest Chest inspection: Present normal inspection and symmetric chest wall rise; Absent tenderness Respiratory Respiratory exam: Present normal lung sounds bilaterally; Absent respiratory distress, wheezes, stridor or accessory muscle use Cardiovascular Cardiovascular exam: Present regular rate and normal rhythm Abdominal Exam Abdominal exam: Present soft and tenderness (Generalized); Absent distention, guarding, rebound or rigidity Extremities Exam Extremities exam: Present full ROM, normal capillary refill and edema (Symmetric bilateral lower extremity pitting edema); Absent tenderness Back Exam Back exam: Present normal inspection and full ROM; Absent tenderness Neurological Exam Neurological exam: Present alert, oriented X3, CN II-XII intact and normal gait; Absent motor sensory deficit Psychiatric Psychiatric exam: Present normal affect and normal mood Skin Skin exam: Present warm and dry Medical Decision Making Medical Records Medical records reviewed: Yes I reviewed the patient's medical records. Screening: Per USPSTF and CDC recommendations, given the prevalence of disease in our region, it is our hospital?s policy to screen for HIV and viral Hepatitis for all patients aged 18 and over and those with ongoing risk factors. Deon Inquiry Pt receiving controlled substance: No Vital Signs: 02/16/24 16:46 02/16/24 17:01 02/16/24 17:30 Temperature 98.1 F Temperature Source Oral Pulse Rate 62 54 L Pulse Rate [Left Radial] 57 L Respiratory Rate 19 16 20 Blood Pressure 118/32 L 109/34 L Blood Pressure [Right Arm] 177/51 H Blood Pressure Mean 60 59 Blood Pressure Mean [Right Arm] 93 Blood Pressure Source Blood Pressure Position 02 Sat by Pulse Oximetry 97 98 97 Oxygen Delivery Method Room Air 02/16/24 18:01 02/16/24 18:31 02/16/24 19:30 Temperature Temperature Source Pulse Rate 58 L 56 L 52 L Pulse Rate [Left Radial] Respiratory Rate 18 14 Blood Pressure 118/35 L 105/40 L 123/46 L Blood Pressure [Right Arm] Blood Pressure Mean 51 51 71 Blood Pressure Mean [Right Arm] Blood Pressure Source Blood Pressure Position 02 Sat by Pulse Oximetry 96 95 95 Oxygen Delivery Method 02/16/24 22:01 Temperature 98.0 F Temperature Source Oral Pulse Rate 63 Pulse Rate [Left Radial] Respiratory Rate 16 Blood Pressure 197/65 H Blood Pressure [Right Arm] Blood Pressure Mean Blood Pressure Mean [Right Arm] Blood Pressure Source Automatic Cuff Blood Pressure Position Sitting 02 Sat by Pulse Oximetry Oxygen Delivery Method Room Air Lab Data Lab results reviewed: Yes I reviewed the patient's lab results. Lab Results 02/16/24 16:46: WBC 7.7, RBC 3.62 L, Hgb 11.0 L, Hct 34.1 L, MCV 94.2, MCH 30.4, MCHC 32.3, RDW 14.3, Plt Count 268, MPV 11.3 H, Neut % (Auto) 69.0, Lymph % (Auto) 15.8, Bollinger % (Auto) 7.4, Eos % (Auto) 6.6, Baso % (Auto) 0.9, Neut # (Auto) 5.3, Lymph # (Auto) 1.2, [place]linger # (Auto) 0.6, Eos # (Auto) 0.5 H, Baso # (Auto) 0.1, D-Dimer 0.99 H, Sodium 135 L, Potassium 3.8, Chloride 103, Carbon Dioxide 26, Anion Gap 9.8, BUN 32 H, Creatinine 1.20 H, Estimated Creat Clear 48, Estimated GFR 43 L, Est GFR ( Amer) 52 L, Glucose 135 H, Calcium 9.3, Total Bilirubin 0.5, AST 49 H, ALT 30, Alkaline Phosphatase 73, Troponin I 0.03, C-Reactive Protein 5.8 H, NT-Pro-B Natriuret Pep 1890 H, Total Protein 7.2, Albumin 4.2, Globulin 3.0, Albumin/Globulin Ratio 1.4, Lipase 232, Procalcitonin 0.031, TSH 17.90 H, Thyroxine (T4) 5.4 L 02/16/24 20:55: Troponin I 0.03 02/16/24 : Urine Color Yellow, Urine Appearance Clear, Urine pH 6.0, Ur Specific [place] 1.015, Urine Protein Negative, Urine Glucose (UA) Negative, Urine Ketones Negative, Urine Blood Negative, Urine Nitrate Negative, Urine Bilirubin Negative, Urine Urobilinogen 0.2, Ur Leukocyte Esterase 1+ A, Urine RBC None, Urine WBC 3-5, Ur Squamous Epith Cells 10-20, Urine Bacteria 3+ 02/16/24 16:46 02/16/24 16:46 Orders (Tests/Meds): ED MEDICATIONS Discontinued Medications Generic Name Dose Route Start Last Admin Trade Name Freq PRN Reason Stop Dose Admin Acetaminophen 1,000 mg 02/16/24 17:42 02/16/24 17:51 Acetaminophen 1,000mg/100ml Vial IV 02/16/24 17:43 1,000 mg ONCE ONE Administration Acetaminophen 1,000 mg 02/16/24 21:04 Acetaminophen 500mg Tab PO 02/16/24 21:05 ONCE ONE Famotidine 20 mg 02/16/24 17:42 02/16/24 17:52 Famotidine 20mg/2ml Vial IV 02/16/24 17:43 20 mg ONCE ONE Administration Metoclopramide HCl 5 mg 02/16/24 17:42 02/16/24 17:52 Metoclopramide Hcl 10mg/2ml Vial IVP 02/16/24 17:43 5 mg ONCE ONE Administration Sodium Chloride 8 ml 02/16/24 17:42 Sodium Chloride 0.9% 10ml Vial IV 03/17/24 17:41 NEEDED PRN dilute pepcid ORDERS Category Date Time Status CT abdomen pelvis wo con Stat Cat Scan 02/16/24 18:[address] chest wo con Stat Cat Scan 02/16/24 18:42 Completed BNP [NT Pro Brain Natriuretic Pep.] Stat Lab 02/16/24 16:46 Completed CRP [C-Reactive Protein] Stat Lab 02/16/24 16:46 Completed Complete Blood Count Auto Diff Stat Lab 02/16/24 16:46 Completed Comprehensive Metabolic Panel Stat Lab 02/16/24 16:46 Completed D-Dimer Stat Lab 02/16/24 16:46 Completed Lipase Stat Lab 02/16/24 16:46 Completed Procalcitonin Stat Lab 02/16/24 16:46 Completed T4 (Thyroxine) Stat Lab 02/16/24 16:46 Completed TSH [Thyroid Stimulating Hormone] Stat Lab 02/16/24 16:46 Completed Trop I [Troponin I] Stat Lab 02/16/24 16:46 Completed Troponin I Q3H Lab 02/16/24 20:55 Completed UA [Urinalysis and Microscopic] Stat Lab 02/16/24 Completed Urine Culture Stat Micro 02/16/24 Received ECG Data Tracing #1: I reviewed this ECG and interpreted as documented below: Normal sinus rhythm with ventricular rate of 65 bpm. No acute STEMI. Normal intervals. No changes from prior EKG. ECG initial impression date: 02/16/24 ECG initial impression time: 16:42 Medical Decision Narrative: In summary, this patient is a 78-year-old female presenting to the Emergency Department for evaluation of feeling sick. She states she feels sick in the head and her belly. Differential diagnoses considered include but are not limited to viral syndrome, gastroenteritis, colitis, chronic abdominal pain, gastritis, cholecystitis, peptic ulcer disease, migraine. Ruling out the most morbid conditions drove assessment. It should be noted patient's history includes hypertension, hypothyroidism, CAD, chronic constipation, chronic abdominal pain which likely are not at goal therapy. This complicates all aspects of care by increasing patient's risk for morbidity. I reviewed patient's past medical records and noted previous PCP evaluations for abdominal pain as well as prior admission to the hospital back in July for abdominal pain. On exam, the patient is lying in bed in no acute distress. She has mild generalized abdominal tenderness but no rebound or guarding. Cardiopulmonary exam and vitals are reassuring. She is neurologically intact. Workup included broad lab evaluation to evaluate for infectious, metabolic, cardiac causes of her symptoms as well as EKG. EKG obtained is reassuring with no significant changes from prior. Patient was given IV Reglan, Pepcid, acetaminophen for symptomatic improvement. Labs obtained demonstrated very slight bump in creatinine from prior but does not meet criteria for ALBERTO. AST very mildly elevated. BNP slightly elevated. She does appear to be hypothyroid. Overall, labs not significantly changed from prior. D-dimer is, however, slightly elevated, but patient refuses any sort of contrasted scans. I explained to her risk versus benefit and also explained to her daughter, but she still is refusing contrasted scan. Noncontrasted I did order CT scans to further evaluate her significant abdominal complaints, and she has an incidental finding of a right lung lesion. Daughter states that she is aware of this and I advised very close outpatient follow-up. Otherwise, I do not see any acute pathology that would cause significant abdominal pain or other concerns. It is possible she has a viral syndrome versus this is just a flareup of her chronic abdominal symptoms for which she is already had outpatient workup including MRI. Overall, she is up, walking around the room, tolerating oral intake, and she is feeling a lot better. Given this, I feel that she is appropriate for discharge back to nursing facility. Daughter took her in stable condition. Critical Care Critical Care Time Critical Care Time: No
[2024-02-16 18:06] LABS: Albumin Level 4.2 g/dl (3.5-5.0); Chloride 103 mmol/L (98-107); Potassium 3.8 mmoL/L (3.5-5.1); Sodium 135 mmol/L (136-145)
[2024-02-16 18:09] LABS: Alanine Aminotransferase 30 U/L (12-78); Albumin/Globulin Ratio 1.4 (1.1-1.8); Alkaline Phosphatase 73 U/L (38-126); Anion Gap 9.8 mEq/L (5-15); Aspartate Amino Transferase 49 U/L (14-36); Bilirubin,Total 0.5 mg/dl (0.2-1.3); Blood Urea Nitrogen 32 mg/dl (7-17); Calcium 9.3 mg/dl (8.4-10.2); Carbon Dioxide 26 mmol/L (22.0-30.0); Creatinine Clearance Estimated 48 mL/min (50-200); Estimated Glomerular Filt Rate 43 ml/min (>60); GFR (African American) 52 ML/MIN (>60); Glucose 135 mg/dl (74-100); Lipase 232 U/L (23-300); Total Protein,Serum 7.2 g/dl (6.3-8.2)
--- NOTE | 2024-02-16 18:19 | PC.NURSE ---
ROUNDED ON PT, REPOSITIONED IN BED. CALL LIGHT WITHIN REACH
[2024-02-16 18:20] LABS: C-Reactive Protein 5.8 mg/L (0-4)
[2024-02-16 18:31] LABS: D-Dimer 0.99 ug/mL (0.0-0.5)
[2024-02-16 18:42] LABS: Bacteria,Urine 3+ /lpf
--- NOTE | 2024-02-16 18:42 | CT_ITS ---
PROCEDURE INFORMATION: Exam: CT Chest Without Contrast; Diagnostic Exam date and time: 02/16/2024 6:59 PM Age: 78 years old Clinical indication: Pain and abnormal findings; Abnormal diagnostic tests; Elevated d-dimer; Left-sided; Additional info: Pain, elevated d-dimer TECHNIQUE: Imaging protocol: Diagnostic computed tomography of the chest without contrast. Radiation optimization: All CT scans at this facility use at least one of these dose optimization techniques: automated exposure control; mA and/or kV adjustment per patient size (includes targeted exams where dose is matched to clinical indication); or iterative reconstruction. COMPARISON: 1. CT ANGIO CHEST 09/23/2023 7:[address] ANGIO CHEST PE PROTOCOL 04/12/2022 2:15 PM FINDINGS: Lungs: A subpleural broad-base masslike opacity seen in the posteroinferior right lower lobe measuring 3.6 x 2.4 x 1.4 cm without significant change from prior CT of 09/23/2023 and is new finding compared to CT of 04/12/2022. Lungs are otherwise clear. Pleural spaces: Unremarkable. No pneumothorax. No pleural effusion. Heart: Unremarkable. No cardiomegaly. No pericardial effusion. Coronary arteries: Extensive coronary artery calcifications suggesting coronary artery disease. Lymph nodes: Mildly enlarged mediastinal nodes in the right paratracheal, AP window and subcarinal regions similar to previous. No evident new or increasing mediastinal or hilar adenopathy. Vasculature: Unremarkable. No aortic aneurysm. Bones/joints: Unremarkable. No acute fracture. Soft tissues: Unremarkable. IMPRESSION: 1. No acute abnormality. Assessment for PE not possible on this noncontrast CT. 2. Incidental broad-base masslike opacity in the posteroinferior right lower lobe measuring up to 3.6 cm without significant change from prior CT of 09/23/2023 but represents a new finding compared to CT of 04/12/2022. Benign versus malignant etiologies cannot be differentiated. Finding might be a some type of postinflammatory or infectious scarring but developing tumor mass again not be totally excluded. Consider further assessment with CT PET or tissue sampling. I would also advise a additional follow-up CT in 3-6 months especially if PET study or biopsy not performed. 3. Extensive coronary artery calcifications suggesting coronary artery disease.
--- NOTE | 2024-02-16 18:42 | CT_ITS ---
PROCEDURE INFORMATION: Exam: CT Abdomen And Pelvis Without Contrast Exam date and time: 02/16/2024 6:59 PM Age: 78 years old Clinical indication: Nausea; Additional info: Pain, nausea TECHNIQUE: Imaging protocol: Computed tomography of the abdomen and pelvis without contrast. Radiation optimization: All CT scans at this facility use at least one of these dose optimization techniques: automated exposure control; mA and/or kV adjustment per patient size (includes targeted exams where dose is matched to clinical indication); or iterative reconstruction. COMPARISON: 1. MR ABDOMEN WO CON 11/16/2023 9:[address] ABDOMEN PELVIS W CON 11/15/2023 11:53 PM FINDINGS: Lungs: Refer to CT chest for lung bases. Diaphragm: Small hiatal hernia. Liver: Normal. No mass. Gallbladder and biliary ducts: Normal. No calcified stones. No ductal dilation. Pancreas: Normal. No ductal dilation. Spleen: Normal. No splenomegaly. Adrenal glands: Normal. No mass. Kidneys and ureters: Benign-appearing cysts in the inferior right kidney redemonstrated. No follow-up advised. A 2 mm nonobstructing right kidney stone. Kidneys and ureters otherwise unremarkable with no obstructing stones or uropathy. Stomach and bowel: Extensive diverticula throughout the colon. Colon otherwise unremarkable with no evidence of diverticulitis. GI tract structures otherwise unremarkable with no evident wall thickening allowing for incomplete distention. Appendix: Appendix is normal. No evidence of appendicitis. Intraperitoneal space: Unremarkable. No free air. No significant fluid collection. Vasculature: Unremarkable. No abdominal aortic aneurysm. Lymph nodes: Unremarkable. No enlarged lymph nodes. Urinary bladder: Unremarkable as visualized. Reproductive: Unremarkable as visualized. Bones/joints: Unremarkable. No acute fracture. Soft tissues: Unremarkable. IMPRESSION: No acute abnormalities of the abdomen and pelvis. Nonemergent findings as above.
[2024-02-16 19:36] LABS: NT Pro Brain Natriuretic Pep. 1890 pg/mL (0-450); Troponin I 0.03 ng/ml (0.00-0.034)
[2024-02-16 19:41] LABS: Procalcitonin 0.031 ng/mL (0.0-2.0); T4 (Thyroxine) 5.4 ug/dl (5.53-11.0)
[2024-02-16 21:32] LABS: Troponin I 0.03 ng/ml (0.00-0.034)
== END 2024-02-16 22:01 | disposition home or self-care (01) ==
PROVIDERS: Emergency Provider Emergency Medicine; PCP Family Medicine
DX: R79.89 Other specified abnormal findings of blood chemistry (principal); I25.10 Atherosclerotic heart disease of native coronary artery without angina pectoris; R91.8 Other nonspecific abnormal finding of lung field; R07.9 Chest pain, unspecified; R51.9 Headache, unspecified; H92.03 Otalgia, bilateral; R10.9 Unspecified abdominal pain; R11.0 Nausea
CPT/HCPCS: 71250; 74176; 80053; 81001; 83690; 83880; 84145; 84436; 84443; 84484; 85025; 85378; 86140; 87086; 93005; 96374; 96375; 99285; J0131; J2765; S0028